=== PATIENT | male | born 1930 | race Caucasian/White ===

== ENCOUNTER 2018-06-11 11:17 | Observation (INO) ==
[2018-06-11] MEDS ORDERED: Pantoprazole Inj 40 MG Vial IV.PUSH ONE (11:58)
--- NOTE | 2018-06-11 12:00 | ED ---
HPI General Chief complaint: Recheck/Abnormal Lab/Rx Stated complaint: Sent by Primary for transfusion Time Seen by Provider: 06/11/18 11:58 Source: patient Mode of arrival: ambulatory Limitations: no limitations History of Present Illness HPI Narrative: 87-year-old male patient with history of anemia, previous GI bleed, not fully investigated by GI, presents to the ER today because he was told by his physician from a routine blood test that his hemoglobin is 7. He states he has been a little bit more tired than usual, having some dyspnea on exertion. He denies any current chest pains, vomiting, abdominal pains, or any other issues. He has noticed dark stool but he states is always dark. Related Data Home Medications Medication Instructions Recorded Confirmed atorvastatin 10 mg PO DAILY 06/11/18 06/11/18 levothyroxine 25 mcg PO DAILY 06/11/18 06/11/18 lisinopril-hydrochlorothiazide 1 tab PO DAILY 06/11/18 06/11/18 Allergies Allergy/AdvReac Type Severity Reaction Status Date / Time No Known Allergies Allergy Verified 06/11/18 12:50 Review of Systems ROS: all other systems reviewed are negative PMFSH History History Provided By: Patient Medical History Medical History Depression (Acute) History of high cholesterol (Acute) Hypertension (Acute) Hypothyroid (Acute) Surgical History Surgical History Hx of hernia repair (Acute) Social History Social History Substance History: No History of Abuse Second Hand Smoke Exposure: No Smoking Status: Never smoker How Often Do You Have a Drink Containing Alcohol: Never Recent Travel in [facility] within the Last 8 Weeks: No Recent Out of Country Travel within the Last 8 Weeks: No Exam Narrative Exam Narrative: GENERAL: Well-developed pleasant elderly white male patient currently in mild distress. Awake and oriented 3. SKIN: Focused skin assessment warm/dry. HEAD: Atraumatic. Normocephalic. EYES: Pupils equal and round. No scleral icterus. No injection or drainage. ENT: No nasal bleeding or discharge. Mucous membranes pink and moist. NECK: Trachea midline. No JVD. Supple. CARDIOVASCULAR: Regular rate and rhythm. No murmur appreciated. RESPIRATORY: No accessory muscle use. Clear to auscultation. Breath sounds equal bilaterally. GASTROINTESTINAL: Abdomen soft, non-tender, nondistended. Hepatic and splenic margins not palpable. RECTAL EXAM: No masses or tenderness, stool is brown. Hemoccult positive. MUSCULOSKELETAL: No obvious deformities. No clubbing. No cyanosis. No edema. NEUROLOGICAL: Awake and alert. No obvious cranial nerve deficits. Motor grossly within normal limits. Normal speech. PSYCHIATRIC: Appropriate mood and affect; insight and judgment normal. Procedures Hemaprompt Stool Procedural Steps Taken: specimen placed in appropriate test area, developer placed on specimen and control areas and controls appropriately positive and negative Hemaprompt Stool Result: positive Course Initial Documented Vital Signs Temperature 98.6 F 06/11/18 11:22 Pulse Rate 93 H 06/11/18 11:22 Respiratory Rate 16 06/11/18 11:22 Blood Pressure 120/53 L 06/11/18 11:22 Pulse Oximetry 100 06/11/18 11:22 Last Documented Vital Signs Temperature 98.6 F 06/11/18 11:22 Pulse Rate 93 H 06/11/18 11:22 Respiratory Rate 16 06/11/18 11:22 Blood Pressure 120/53 L 06/11/18 11:22 Pulse Oximetry 100 06/11/18 11:22 Medical Decision Making MDM Narrative Medical decision making narrative: Patient has Hemoccult positive stools. His hemoglobin is 7.4. Protonix and 2 units of blood were given in the ER. At this point, my plan would be to admit him for further evaluation of his GI bleed and for transfusion. Case has been discussed with Dr. Morrissey's PA for admission. Medical Screen Exam Complete: Yes Emergency Medical Condition: Yes Differential Diagnosis Differential Diagnosis: GI bleed/anemia Lab Data Lab results reviewed: Yes I reviewed the patient's lab results. Result diagrams: 06/11/18 12:10 06/11/18 12:10 Lab Results 06/11/18 06/11/18 06/11/18 Range/Units 12:10 12:10 12:10 CBC w Diff Auto diff final WBC 7.3 (4.0-11.0) th/mm3 RBC 2.72 L (4.50-5.90) mil/mm3 Hgb 7.4 L (13.0-17.0) gm/dL Hct 23.1 L (39.0-51.0) % MCV 85.0 (80.0-100.0) fL MCH 27.4 (27.0-34.0) pg MCHC 32.2 (32.0-36.0) % RDW 19.8 H (11.6-17.2) % Plt Count 367 (150-450) th/mm3 MPV 7.9 (7.0-11.0) fL Neut % (Auto) 73.9 H (16.0-70.0) % Lymph % (Auto) 11.8 (9.0-44.0) % [place] % (Auto) 8.7 H (0.0-8.0) % Eos % (Auto) 5.2 H (0.0-4.0) % Baso % (Auto) 0.4 (0.0-2.0) % Neut # (Auto) 5.4 (1.8-7.7) th/mm3 Lymph # (Auto) 0.9 L (1.0-4.8) th/mm3 [place] # (Auto) 0.6 (0.0-0.9) th/mm3 Eos # (Auto) 0.4 (0.0-0.4) th/mm3 Baso # (Auto) 0.0 (0.0-0.2) th/mm3 WBC Differential . Differential Comment . PT 10.6 (9.8-11.6) sec INR 1.0 Ratio APTT 24.8 (24.3-30.1) sec Sodium 137 (136-145) meq/L Potassium 4.9 (3.5-5.1) meq/L Chloride 107 (98-107) meq/L Carbon Dioxide 22.6 (21.0-32.0) meq/L Anion Gap 7 (5-15) meq/L BUN 35 H (7-18) mg/dL Creatinine 1.80 H (0.60-1.30) mg/dL Estimated GFR 36 L (>89) mL/min Random Glucose 122 H (74-106) mg/dL Calcium 8.4 L (8.5-10.1) mg/dL Discharge Plan Discharge Disposition Patient Disposition: 30 Still Patient Discharge Condition Condition: Stable Discharge Details Anticipated Discharge Date: 06/11/18 Diagnosis: GI bleed, Anemia Physicians Team ED Provider: Steven Barcenas Primary Care Provider: UNKNOWN, Rxs /Orders / Referrals /Forms Prescriptions: No Action atorvastatin 10 mg Tablet 10 mg PO DAILY RF: 0 lisinopril-hydrochlorothiazide 20-12.5 mg Tablet 1 tab PO DAILY RF: 0 levothyroxine 25 mcg Tablet 25 mcg PO DAILY RF: 0 Status ED Status: With Doctor
[2018-06-11 12:21] LABS: Baso % (Auto) 0.4 % (0.0-2.0); Eos # (Auto) 0.4 th/mm3 (0.0-0.4); Eos % (Auto) 5.2 % (0.0-4.0); Hematocrit 23.1 % (39.0-51.0); Hemoglobin 7.4 gm/dL (13.0-17.0); Lymph # (Auto) 0.9 th/mm3 (1.0-4.8); Lymph % (Auto) 11.8 % (9.0-44.0); Mean Corpuscular HGB Conc 32.2 % (32.0-36.0); Mean Corpuscular Hemoglobin 27.4 pg (27.0-34.0); Mean Platelet Volume 7.9 fL (7.0-11.0); Mono # (Auto) 0.6 th/mm3 (0.0-0.9); Mono % (Auto) 8.7 % (0.0-8.0); Neut # (Auto) 5.4 th/mm3 (1.8-7.7); Neut % (Auto) 73.9 % (16.0-70.0); Platelet Count 367 th/mm3 (150-450); Red Blood Count 2.72 mil/mm3 (4.50-5.90); Red Cell Distribution Width 19.8 % (11.6-17.2); White Blood Count 7.3 th/mm3 (4.0-11.0)
[2018-06-11 12:31] LABS: Potassium 4.9 meq/L (3.5-5.1)
[2018-06-11 12:33] LABS: Calcium 8.4 mg/dL (8.5-10.1); Carbon Dioxide 22.6 meq/L (21.0-32.0)
[2018-06-11 12:48] LABS: Activated Partial Thrombo Time 24.8 sec (24.3-30.1); Prothrombin Time 10.6 sec (9.8-11.6)
[2018-06-11] MEDS ORDERED: Sodium Chlor 0.9% Inj 250 ML IV.SIG SCH (13:00)
[2018-06-11] MEDS ORDERED: Acetaminophen 325 MG Tablet PO PRN (13:07)
[2018-06-11] MEDS ORDERED: Bisacodyl 10 MG Supp RECTAL PRN (13:07)
[2018-06-11] MEDS: Sod Chloride 0.9% Inj 1,000 ML IV.CONT SCH (14:23)
--- NOTE | 2018-06-11 14:32 | P.HP ---
History of Present Illness Primary Care Physician: UNKNOWN Chief Complaint: Anemia History of Present Illness: This is an 87-year-old male patient with a known medical history of hypertension , hyperlipidemia and hypothyroidism who presented to the ED from his PCP office with a hemoglobin of 7.0. Patient states that his primary care office called him this afternoon stating that his hemoglobin is 7 and that he needed to be admitted to the hospital for transfusion. Patient does admit to recent shortness of breath, fatigue as well as black and bloody stools. He states that he has been having dark stools for the past week. He does follow with hat checker, Dr. Palomo, he does have a history of iron deficiency anemia as well as multiple colonoscopies in the past. I guess 2 months ago was his last iron transfusion, he does take iron supplements at home. His PCP is Dr. Sheppard, who follows closely with him as well. He also does admit to a cough and upper respiratory infection for which she has been taking ibuprofen several times a day for the past week for generalized malaise. He denies any recent fevers, chills, headache, chest pain, abdominal pain, nausea, vomiting, diarrhea or dysuria. He is compliant with his medications at home. - Diagnosis (1) GI bleed (2) Anemia Review of Systems All other systems reviewed negative except as stated in HPI PMFSH - History History Provided By: Patient - Medical History Medical History: Medical History (Last Reviewed 06/11/18 @ 14:32 by Vita De La Cruz) Depression History of high cholesterol Hypertension Hypothyroid - Surgical History Surgical History: Surgical History (Last Reviewed 06/11/18 @ 14:32 by Vita De La Cruz) Hx of hernia repair - Family History Family History: Family History (Last Updated 06/11/18 @ 15:13 by Vita De La Cruz) Other No significant family history - Tobacco History Second Hand Smoke Exposure: No Smoking Status: Never smoker - Alcohol History How Often Do You Have a Drink Containing Alcohol: Never - Substance Use History Substance History: No History of Abuse - Travel History Recent Travel in the [place] Within the Last 8 Weeks: No Recent Travel Out of the Country Within the Last 8 Weeks: No - Immunization History Tetanus Immunization: Unsure Hx Influenza Vaccine This Season: Unable to Assess Medications and Allergies Active Medications: Active Medications Acetaminophen (Tylenol) 650 mg PO Q4H PRN PRN Reason: Temp > 100.4 Al Hydroxide/Mg Hydroxide (Milk Of Magnesia Liq) 30 ml PO Q12H PRN PRN Reason: Mild Constipation Bisacodyl (Dulcolax Supp) 10 mg RECTAL DAILY PRN PRN Reason: SEVERE CONSITIPATION Sodium Chloride (Ns Inj) 250 mls @ 15 mls/hr IV.SIG ONCE RODNEY Stop: 06/12/18 05:39 Sodium Chloride (Ns Inj) 1,000 mls @ 100 mls/hr IV.CONT .Q10H RODNEY Last Admin: 06/11/18 14:23 Dose: 100 mls/hr Lactulose (Lactulose Liq) 30 ml PO DAILY PRN PRN Reason: SEVERE CONSITIPATION Ondansetron HCl (Zofran Inj) 4 mg IV.PUSH Q6H PRN PRN Reason: NAUSEA OR VOMITING Sennosides (Senokot) 17.2 mg PO Q12H PRN PRN Reason: Moderate Constipation Allergies Allergy/AdvReac Type Severity Reaction Status Date / Time No Known Allergies Allergy Verified 06/11/18 12:50 Home Medications Medication Instructions Recorded Confirmed Type atorvastatin 10 mg PO DAILY 06/11/18 06/11/18 History levothyroxine 25 mcg PO DAILY 06/11/18 06/11/18 History lisinopril-hydrochlorothiazide 1 tab PO DAILY 06/11/18 06/11/18 History Exam Vital signs: Vital Signs 06/11/18 11:22 06/11/18 12:05 06/11/18 14:00 Temperature 98.6 F Pulse Rate 93 H 90 82 Respiratory Rate 16 16 18 Blood Pressure 120/53 L 109/40 L 102/50 L Pulse Oximetry 100 99 Intake & Output 06/10/18 06/11/18 06/11/18 18:59 06:59 18:59 Weight 62.4 kg Narrative: GENERAL: Well-developed, well-nourished patient in [facility]. SKIN: Warm and dry. No rash. Pale HEAD: Normocephalic. Atraumatic. EYES: Pupils equal and round. No scleral icterus. No injection or drainage. ENT: No nasal bleeding or discharge. Mucous membranes pink and moist. NECK: Supple. Trachea midline. CARDIOVASCULAR: Regular rate and rhythm. S1, S2 noted. No murmur appreciated. RESPIRATORY: No accessory muscle use. Clear to auscultation. Breath sounds equal bilaterally. GASTROINTESTINAL: Abdomen soft, non-tender, nondistended. Normoactive bowel sounds x4. MUSCULOSKELETAL: No obvious deformities. Extremities without clubbing, cyanosis , or edema. NEUROLOGICAL: Awake and alert. No obvious cranial nerve deficits. Motor grossly within normal limits. 5/5 muscle strength in bilateral upper and lower extremities. Normal speech. PSYCHIATRIC: Appropriate mood and affect; insight and judgment normal. Results - Labs CBC & Chem 7: 06/11/18 12:10 06/11/18 12:10 Labs: Laboratory Results - last 24 hr 06/11/18 06/11/18 06/11/18 12:10 12:10 12:10 CBC w Diff Auto diff final WBC 7.3 RBC 2.72 L Hgb 7.4 L Hct 23.1 L MCV 85.0 MCH 27.4 MCHC 32.2 RDW 19.8 H Plt Count 367 MPV 7.9 Neut % (Auto) 73.9 H Lymph % (Auto) 11.8 [place] % (Auto) 8.7 H Eos % (Auto) 5.2 H Baso % (Auto) 0.4 Neut # (Auto) 5.4 Lymph # (Auto) 0.9 L [place] # (Auto) 0.6 Eos # (Auto) 0.4 Baso # (Auto) 0.0 WBC Differential . Differential Comment . PT INR APTT Sodium 137 Potassium 4.9 Chloride 107 Carbon Dioxide 22.6 Anion Gap 7 BUN 35 H Creatinine 1.80 H Estimated GFR 36 L Random Glucose 122 H Calcium 8.4 L Blood Type A Positive 06/11/18 12:10 CBC w Diff WBC RBC Hgb Hct MCV MCH MCHC RDW Plt Count MPV Neut % (Auto) Lymph % (Auto) [place] % (Auto) Eos % (Auto) Baso % (Auto) Neut # (Auto) Lymph # (Auto) [place] # (Auto) Eos # (Auto) Baso # (Auto) WBC Differential Differential Comment PT 10.6 INR 1.0 APTT 24.8 Sodium Potassium Chloride Carbon Dioxide Anion Gap BUN Creatinine Estimated GFR Random Glucose Calcium Blood Type Caprini VTE Risk Assessment Caprini VTE Risk Assessment: Moderate/High Risk (score >= 2) Caprini Risk Assessment Model: Point Value = 1 Point Value = 2 Point Value = 3 Point Value = 5 Age 41-60 Minor surgery BMI > 25 kg/m2 Swollen legs Varicose veins or History of unexplained or recurrent spontaneous Oral contraceptives or hormone replacement Sepsis (< 1 month) Serious lung disease, including pneumonia (< 1 month) Abnormal pulmonary function Acute myocardial infarction Congestive heart failure (< 1 month) History of inflammatory bowel disease Medical patient at bed rest Age 61-74 Arthroscopic surgery Major open surgery (> 45 min) Laparoscopic surgery (> 45 min) Malignancy Confined to bed (> 72 hours) Immobilizing plaster cast Central venous access Age >= 75 History of VTE Family history of VTE Factor V Leiden Prothrombin [id number] Lupus anticoagulant Anticardiolipin antibodies Elevated serum homocysteine Heparin-induced thrombocytopenia Other congenital or acquired thrombophilia Stroke (< 1 month) Elective arthroplasty Hip, pelvis, or leg fracture Acute spinal cord injury (< 1 month) Prophylaxis Regimen: Total Risk Factor Score Risk Level Prophylaxis Regimen 0-1 Low Early ambulation 2 Moderate Order ONE of the following: *Sequential Compression Device (SCD) *Heparin 5000 units SQ BID 3-4 Higher Order ONE of the following medications: *Heparin 5000 units SQ TID *Enoxaparin/Lovenox 40 mg SQ daily (WT < 150 kg, CrCl > 30 mL/min) *Enoxaparin/Lovenox 30 mg SQ daily (WT < 150 kg, CrCl > 10-29 mL/min) *Enoxaparin/Lovenox 30 mg SQ BID (WT < 150 kg, CrCl > 30 mL/min) AND/OR *Sequential Compression Device (SCD) 5 or more Highest Order ONE of the following medications: *Heparin 5000 units SQ TID (Preferred with Epidurals) *Enoxaparin/Lovenox 40 mg SQ daily (WT < 150 kg, CrCl > 30 mL/min) *Enoxaparin/Lovenox 30 mg SQ daily (WT < 150 kg, CrCl > 10-29 mL/min) *Enoxaparin/Lovenox 30 mg SQ BID (WT < 150 kg, CrCl > 30 mL/min) AND *Sequential Compression Device (SCD) Assessment and Plan - Assessment (1) GI bleed Code(s): K92.2 - Gastrointestinal hemorrhage, unspecified Status: Acute (2) Anemia Code(s): D64.9 - Anemia, unspecified Status: Acute - Plan This is an 87-year-old male with: GI bleed Anemia suspect secondary to history of iron deficiency anemia as well as blood loss History of iron deficiency anemia, receives iron transfusions -Patient does admit to overall fatigue, shortness of breath and black and bloody stools for the past week. Does have a history of iron deficiency anemia , follows with hat checker, Dr. Hughes. -Hemoglobin 7.4/hematocrit 23.1 on presentation. ED physician ordered 2 units PRBC to be transfused today. -Hemoccult positive. Will continue to monitor for any active bleeding. Trend H &H. Monitor vital signs. -Gastroenterology consulted, appreciate input and recommendations. Will transfuse ordered PRBC. -Per GI standpoint, patient is stable to go home and follow up outpatient with his GI and hat checker. -Will continue to monitor. Supportive care. Acute on chronic? kidney disease -Patient denies any history of kidney disease, he presents with creatinine 1.8, GFR 36. -After review of records there is no prior creatinine level. Will recheck in a.m. -Patient denies any abnormality with urination. He has some ADOLPH inhibitor at home. Hypertension, chronic: Hold ADOLPH inhibitor for now. Continue to monitor BP trends. Hyperlipidemia, chronic: Will continue home medications. DVT prophylaxis: SCDs. Hold chemical prophylaxis secondary to anemia possible bleed. Discharge Planning: Await blood transfusion and improvement in creatinine.
--- NOTE | 2018-06-11 17:04 | MB ---
cc: Myron Alvarado MD, Jose R MD Wang,Baljit VARGAS DATE: 06/11/2018 A patient of Baljit Sheppard MD. INDICATIONS FOR CONSULTATION: Symptomatic anemia. HISTORY OF PRESENT ILLNESS: Mr. Van is an 87-year-old gentleman with a previous history of anemia requiring blood transfusions as well as iron infusions. He is under the care of Dr. Calin Hughes, oil derrick operator, and states he had an iron infusion done a few weeks ago. Apparently, he was sent to the hospital because of a drop in his hemoglobin. He reports previous EGD and colonoscopy roughly 2-1/2 to 3 years ago, at which time, he states his colonoscopy was not able to be completed due to a tortuous colon. He is unclear if there was any further workup undertaken at that time. PAST MEDICAL HISTORY: Hypertension, hyperlipidemia, hypothyroidism, chronic anemia, depression. PAST SURGICAL HISTORY: Hernia repair in the past, previous EGD and colonoscopy reported by the patient. SOCIAL HISTORY: No tobacco, no alcohol reported. REVIEW OF SYSTEMS: Currently, the patient has no symptoms of bleeding, abdominal pain or diarrhea. CURRENT MEDICATIONS: Include: 1. Lactulose. 2. Tylenol. PHYSICAL EXAMINATION: GENERAL: Reveals a well-nourished man in no apparent distress. VITAL SIGNS: Stable. HEAD AND NECK: Pale. Icteric. LUNGS: Bilateral air entry with rales. ABDOMEN: Soft. Midline hernia present. CENTRAL NERVOUS SYSTEM: Nonfocal. RECTAL: Deferred at this time. LABORATORY DATA: Reveal hemoglobin of 7.4 with an MCV of 85. INR is 1.0. Creatinine 1.80. IMPRESSION: Anemia, appears to be chronic. RECOMMENDATIONS: The patient is to be transfused 2 units of blood today. He is heme positive from below. He will need further workup. He can be discharged after blood transfusion over the weekend to follow up with me in the GI clinic next week for an EGD and colonoscopy. This has been discussed with the patient as well as the primary team. Dr. Wu will follow over the weekend. Thank you for this referral. MD ITZEL Silverman/erlinda , 04:24 PM , 04:31 PM
[2018-06-12] MEDS: Sod Chloride 0.9% Inj 1,000 ML IV.CONT SCH (02:05)
[2018-06-12 02:11] LABS: Hematocrit 25.8 % (39.0-51.0); Hemoglobin 8.5 gm/dL (13.0-17.0)
--- NOTE | 2018-06-12 07:51 | P.PNIM ---
Subjective Interval history: Follow-up anemia. Patient seen and examined, lying in bed comfortably no apparent distress. Received 2 units PRBC overnight. Hemoglobin improved to 8.5. Doing well with no complaints. Awaiting lab work this morning. Vital signs stable. Afebrile. Physical Exam Vital signs: Vital Signs 06/11/18 11:22 06/11/18 12:05 06/11/18 14:00 Temperature 98.6 F Pulse Rate 93 H 90 82 Respiratory Rate 16 16 18 Blood Pressure 120/53 L 109/40 L 102/50 L Pulse Oximetry 100 99 06/11/18 15:14 06/11/18 16:00 06/11/18 17:37 Temperature 97.3 F L 97.2 F L 99.3 F Pulse Rate 80 78 81 Respiratory Rate 20 17 Blood Pressure 124/55 L 109/57 L 140/62 Pulse Oximetry 21 L 97 99 06/11/18 17:52 06/11/18 20:00 06/11/18 22:23 Temperature 98.8 F 98.5 F 98.8 F Pulse Rate 80 78 86 Respiratory Rate 17 20 18 Blood Pressure 126/55 L 117/60 123/57 L Pulse Oximetry 99 97 96 06/11/18 22:39 06/11/18 22:45 06/12/18 00:00 Temperature 98.7 F 98.2 F 98.2 F Pulse Rate 91 H 85 85 Respiratory Rate 18 18 18 Blood Pressure 103/60 109/61 109/61 Pulse Oximetry 99 98 98 06/12/18 03:00 06/12/18 04:00 Temperature 98.3 F 98.3 F Pulse Rate 83 83 Respiratory Rate 18 18 Blood Pressure 161/70 H 161/70 H Pulse Oximetry 99 99 Intake & Output 06/11/18 06/12/18 06/12/18 18:59 06:59 18:59 Intake Total 0 / 0 2480 / 2480 30 / 30 Balance 0 / 0 2480 / 2480 30 / 30 Weight 62.4 kg 62.5 kg Intake: IV 1999 30 / 30 NS Inj 1,000 ML @ 100 mls/hr IV 1999 .CONT .Q10H RODNEY Rx#:[id number] NS Inj 250 ML @ 15 mls/hr IV. 30 / 30 SIG ONCE RODNEY Rx#:[id number] Oral 480 / 480 Intake (Blood Product) Amt 0 / 0 0 / 0 Rbc As-3 Leukoreduced Unit 0 / 0 0 / 0 [id number] Rbc As-3 Leukoreduced Unit 0 / 0 [id number] Other: # Voids 2 Date of Last Bowel Movement 06/11/18 06/11/18 # Bowel Movements 1 Weight On Admission 62.4 kg Narrative: GENERAL: Well-developed, well-nourished patient in [facility]. SKIN: Warm and dry. No rash. HEAD: Normocephalic. Atraumatic. EYES: Pupils equal and round. No scleral icterus. No injection or drainage. ENT: No nasal bleeding or discharge. Mucous membranes pink and moist. NECK: Supple. Trachea midline. CARDIOVASCULAR: Regular rate and rhythm. S1, S2 noted. No murmur appreciated. RESPIRATORY: No accessory muscle use. Clear to auscultation. Breath sounds equal bilaterally. GASTROINTESTINAL: Abdomen soft, non-tender, nondistended. Normoactive bowel sounds x4. MUSCULOSKELETAL: No obvious deformities. Extremities without clubbing, cyanosis , or edema. NEUROLOGICAL: Awake and alert. No obvious cranial nerve deficits. Motor grossly within normal limits. 5/5 muscle strength in bilateral upper and lower extremities. Normal speech. PSYCHIATRIC: Appropriate mood and affect; insight and judgment normal. Results - Labs CBC & Chem 7: 06/12/18 02:00 06/11/18 12:10 Laboratory Results - last 24 hr 06/11/18 06/11/18 06/11/18 12:10 12:10 12:10 CBC w Diff Auto diff final WBC 7.3 RBC 2.72 L Hgb 7.4 L Hct 23.1 L MCV 85.0 MCH 27.4 MCHC 32.2 RDW 19.8 H Plt Count 367 MPV 7.9 Neut % (Auto) 73.9 H Lymph % (Auto) 11.8 [place] % (Auto) 8.7 H Eos % (Auto) 5.2 H Baso % (Auto) 0.4 Neut # (Auto) 5.4 Lymph # (Auto) 0.9 L [place] # (Auto) 0.6 Eos # (Auto) 0.4 Baso # (Auto) 0.0 WBC Differential . Differential Comment . PT INR APTT Sodium 137 Potassium 4.9 Chloride 107 Carbon Dioxide 22.6 Anion Gap 7 BUN 35 H Creatinine 1.80 H Estimated GFR 36 L Random Glucose 122 H Calcium 8.4 L Blood Type A Positive Antibody Screen Negative MTS Gel Crossmatch 06/11/18 06/11/18 06/12/18 12:10 12:48 02:00 CBC w Diff WBC RBC Hgb 8.5 L Hct 25.8 L MCV MCH MCHC RDW Plt Count MPV Neut % (Auto) Lymph % (Auto) [place] % (Auto) Eos % (Auto) Baso % (Auto) Neut # (Auto) Lymph # (Auto) [place] # (Auto) Eos # (Auto) Baso # (Auto) WBC Differential Differential Comment PT 10.6 INR 1.0 APTT 24.8 Sodium Potassium Chloride Carbon Dioxide Anion Gap BUN Creatinine Estimated GFR Random Glucose Calcium Blood Type Antibody Screen MTS Gel Crossmatch See Detail Assessment and Plan - Assessment (1) GI bleed Code(s): K92.2 - Gastrointestinal hemorrhage, unspecified Status: Acute (2) Anemia Code(s): D64.9 - Anemia, unspecified Status: Acute - Plan This is an 87-year-old male with: GI bleed Anemia suspect secondary to history of iron deficiency anemia as well as blood loss History of iron deficiency anemia, receives iron transfusions -Patient does admit to overall fatigue, shortness of breath and black and bloody stools for the past week. Does have a history of iron deficiency anemia , follows with editorial specialist, Dr. Hughes. -Hemoglobin 7.4/hematocrit 23.1 on presentation. ED physician ordered 2 units PRBC to be transfused today. Improved to 8.5. -Hemoccult positive. Will continue to monitor for any active bleeding. No continued bleeding. -Gastroenterology consulted, appreciate input and recommendations. Will discharge home to follow-up with patient's GI specialist. Ultimately needs a colonoscopy. -Per GI standpoint, patient is stable to go home and follow up outpatient with his GI and editorial specialist. -Will continue to monitor. Supportive care. Acute on chronic? kidney disease -Patient denies any history of kidney disease, he presents with creatinine 1.8, GFR 36. Awaiting lab work today. -After review of records there is no prior creatinine level. -Patient denies any abnormality with urination. He is on an ADOLPH inhibitor at home. Hypertension, chronic: Hold ADOLPH inhibitor for now. Continue to monitor BP trends. Hyperlipidemia, chronic: Will continue home medications. DVT prophylaxis: SCDs. Hold chemical prophylaxis secondary to anemia possible bleed. Discharge Planning: Awaiting BMP this morning. Will discharge home with creatinine improved.
[2018-06-12 08:48] LABS: Baso % (Auto) 0.6 % (0.0-2.0); Eos # (Auto) 0.2 th/mm3 (0.0-0.4); Eos % (Auto) 3.6 % (0.0-4.0); Hematocrit 25.5 % (39.0-51.0); Hemoglobin 8.7 gm/dL (13.0-17.0); Lymph # (Auto) 0.7 th/mm3 (1.0-4.8); Lymph % (Auto) 10.6 % (9.0-44.0); Mean Corpuscular HGB Conc 34.3 % (32.0-36.0); Mean Corpuscular Volume 84.3 fL (80.0-100.0); Mean Platelet Volume 8.3 fL (7.0-11.0); Mono # (Auto) 0.5 th/mm3 (0.0-0.9); Mono % (Auto) 7.5 % (0.0-8.0); Neut % (Auto) 77.7 % (16.0-70.0); Platelet Count 263 th/mm3 (150-450); Potassium 5.3 meq/L (3.5-5.1); Red Blood Count 3.02 mil/mm3 (4.50-5.90); Red Cell Distribution Width 18.2 % (11.6-17.2); White Blood Count 6.4 th/mm3 (4.0-11.0)
[2018-06-12 08:52] LABS: Calcium 8.1 mg/dL (8.5-10.1); Carbon Dioxide 21.9 meq/L (21.0-32.0)
[2018-06-12 09:03] VITALS: BP 119/56; PULSE 76; RESP 16; TEMP 98.2; O2SAT 97
[2018-06-12] MEDS ORDERED: Sodium Polystyrene Sulfonate/Sorbitol Liq 15 GM/60 ML UDC PO ONE (10:30)
== END 2018-06-12 10:50 | disposition home or self-care (01) ==
LOC: PHED 11:17 → PHEDA 11:17 → PHED 13:10 → PH3 14:15
PROVIDERS: ADMIT Internal Medicine; ATTEND Internal Medicine
DX: F32.9 Major depressive disorder, single episode, unspecified; E78.5 Hyperlipidemia, unspecified; N28.9 Disorder of kidney and ureter, unspecified; E03.9 Hypothyroidism, unspecified; I10 Essential (primary) hypertension; J06.9 Acute upper respiratory infection, unspecified; K92.2 Gastrointestinal hemorrhage, unspecified; D64.9 Anemia, unspecified; E78.00 Pure hypercholesterolemia, unspecified

== ENCOUNTER 2018-07-06 11:40 | Inpatient (IN) ==
[2018-07-06] MEDS ORDERED: Sod Chloride 0.9% Inj 1,000 ML IV.SIG ONE (12:12)
[2018-07-06] MEDS ORDERED: Pantoprazole Inj 40 MG Vial IV.PUSH ONE (12:12)
--- NOTE | 2018-07-06 12:18 | ED ---
HPI General Chief complaint: Weakness Stated complaint: weak, feels like he needs blood Time Seen by Provider: 07/06/18 11:52 History of Present Illness HPI narrative: 87-year-old male patient with a known medical history of GI bleeding,hypertension, hyperlipidemia here for low hemoglobin. pt says that his grandson called him saying that his hemoglobin is " five or something". He says he gets Blood work weekly, He states that his doctor have been trying to get a hold of him but " he lives by himself". His PCP is dr. Sheppard and he is scheduled for colonoscopy on jul. He states that last colonoscopy was 4years ago. He was last admitted on 06/15 for simliar reason. He reports generalized weakness but no chest pain or SOB. Related Data Home Medications Medication Instructions Recorded Confirmed atorvastatin 10 mg PO EVERY OTHER DAY 06/11/18 07/07/18 levothyroxine 25 mcg PO DAILY 06/11/18 07/07/18 lisinopril-hydrochlorothiazide 1 tab PO DAILY 06/11/18 07/07/18 ferrous sulfate [iron] 325 mg PO DAILY 07/06/18 07/07/18 Previous Rx's Medication Instructions Recorded amoxicillin 875 mg PO Q12HR 8 Days tab 07/08/18 metronidazole 500 mg PO BID 8 Days #16 tab 07/08/18 pantoprazole 40 mg PO BID #24 tab 07/08/18 Allergies Allergy/AdvReac Type Severity Reaction Status Date / Time No Known Allergies Allergy Verified 07/06/18 12:06 [facility], [facility] Family History Family History Son Diabetes Hypertension Social History Social History Substance History: No History of Abuse Second Hand Smoke Exposure: No Smoking Status: Never smoker How Often Do You Have a Drink Containing Alcohol: Never Immunization History Tetanus Immunization: >5 Years Procedures Hemaprompt Stool Procedural Steps Taken: specimen placed in appropriate test area Hemaprompt Stool Result: positive Course Initial Documented Vital Signs Temperature 98.6 F 07/06/18 11:42 Pulse Rate 108 H 07/06/18 11:42 Respiratory Rate 16 07/06/18 11:42 Blood Pressure 115/56 L 07/06/18 11:42 Pulse Oximetry 100 07/06/18 11:42 Last Documented Vital Signs Temperature 98.7 F 07/11/18 08:00 Pulse Rate 90 07/11/18 09:00 Respiratory Rate 18 07/11/18 09:00 Blood Pressure 131/55 L 07/11/18 09:00 Pulse Oximetry 98 07/11/18 08:00 Medical Decision Making MDM Narrative Medical decision making narrative: 87 male here for generalized weakness, vitals remarkable for hypotension and tachycardia, exam reveals pale skin, positive Hemoccult. No EKG changes, hemoglobin 5.6 needs to be admitted for blood transfusion. Denies any chest pain or shortness of breath, he is not in any acute distress. Medical Screen Exam Complete: Yes Emergency Medical Condition: Yes Lab Data Result diagrams: 07/10/18 17:02 07/10/18 05:45 Lab Results 07/06/18 07/06/18 07/06/18 Range/Units 12:00 12:00 12:00 CBC w Diff Slide review pending WBC 10.0 (4.0-11.0) th/mm3 RBC 1.97 L (4.50-5.90) mil/mm3 Hgb 5.6 L* (13.0-17.0) gm/dL Hct 16.8 L* (39.0-51.0) % MCV 85.5 (80.0-100.0) fL MCH 28.6 (27.0-34.0) pg MCHC 33.4 (32.0-36.0) % RDW 17.8 H (11.6-17.2) % Plt Count 449 D (150-450) th/mm3 MPV 8.2 (7.0-11.0) fL Neut % (Auto) 77.8 H (16.0-70.0) % Lymph % (Auto) 12.0 (9.0-44.0) % [place] % (Auto) 8.3 H (0.0-8.0) % Eos % (Auto) 1.3 (0.0-4.0) % Baso % (Auto) 0.6 (0.0-2.0) % Neut # (Auto) 7.8 H (1.8-7.7) th/mm3 Lymph # (Auto) 1.2 (1.0-4.8) th/mm3 [place] # (Auto) 0.8 (0.0-0.9) th/mm3 Eos # (Auto) 0.1 (0.0-0.4) th/mm3 Baso # (Auto) 0.1 (0.0-0.2) th/mm3 WBC Differential . Diff Scan Auto diff confirmed Differential Comment . Toxic Granulation (None) Platelet Estimate Normal (Normal) Platelet Morphology Normal (Normal) Dimorphic RBCs (None) Ovalocytes (None) PT 10.8 (9.8-11.6) sec INR 1.1 Ratio APTT 24.5 (24.3-30.1) sec Sodium 137 (136-145) meq/L Potassium 4.7 (3.5-5.1) meq/L Chloride 109 H (98-107) meq/L Carbon Dioxide 18.8 L (21.0-32.0) meq/L Anion Gap 9 (5-15) meq/L BUN 42 H (7-18) mg/dL Creatinine 1.80 H (0.60-1.30) mg/dL Estimated GFR 36 L (>89) mL/min Random Glucose 102 (74-106) mg/dL Calcium 8.1 L (8.5-10.1) mg/dL Prot Corrected Calcium (8.5-10.1) mg/dL Magnesium (1.5-2.5) mg/dL Iron (65-175) mcg/dL TIBC (250-450) mcg/dL % Saturation (20-50) % Total Bilirubin 0.2 (0.2-1.0) mg/dL AST 22 (15-37) U/L ALT 20 (12-78) U/L Alkaline Phosphatase 90 (45-117) U/L Troponin I Less than 0.02 L (0.02-0.05) ng/mL Total Protein 7.7 (6.4-8.2) g/dL Albumin 2.6 L (3.4-5.0) g/dL Lipase 276 (73-393) U/L Urine Color (Yellw/Straw) Urine Clarity (Clear) Urine pH (5.0-8.5) Ur Specific [place] (1.002-1.035) Urine Protein (Neg-Trace) mg/dL Urine Glucose (UA) (Negative) mg/dL Urine Ketones (Negative) mg/dL Urine Occult Blood (Negative) Urine Nitrate (Negative) Urine Bilirubin (Negative) Urine Urobilinogen (Less than 2) mg/dL Ur Leukocyte Esterase (Negative) Urine WBC (0-5) /hpf Ur Squamous Epith Cells (0-5) /hpf Urine Bacteria (None) /hpf Urine Mucus (Occasional) /lpf Micro UA Comment Ur Microscopic Review Urine Culture Comments Blood Type Antibody Screen MTS Gel Crossmatch Bld Prod Order Comment 07/06/18 07/06/18 07/06/18 Range/Units 12:00 12:00 13:04 CBC w Diff WBC (4.0-11.0) th/mm3 RBC (4.50-5.90) mil/mm3 Hgb (13.0-17.0) gm/dL Hct (39.0-51.0) % MCV (80.0-100.0) fL MCH (27.0-34.0) pg MCHC (32.0-36.0) % RDW (11.6-17.2) % Plt Count (150-450) th/mm3 MPV (7.0-11.0) fL Neut % (Auto) (16.0-70.0) % Lymph % (Auto) (9.0-44.0) % [place] % (Auto) (0.0-8.0) % Eos % (Auto) (0.0-4.0) % Baso % (Auto) (0.0-2.0) % Neut # (Auto) (1.8-7.7) th/mm3 Lymph # (Auto) (1.0-4.8) th/mm3 [place] # (Auto) (0.0-0.9) th/mm3 Eos # (Auto) (0.0-0.4) th/mm3 Baso # (Auto) (0.0-0.2) th/mm3 WBC Differential Diff Scan Differential Comment Toxic Granulation (None) Platelet Estimate (Normal) Platelet Morphology (Normal) Dimorphic RBCs (None) Ovalocytes (None) PT (9.8-11.6) sec INR Ratio APTT (24.3-30.1) sec Sodium (136-145) meq/L Potassium (3.5-5.1) meq/L Chloride (98-107) meq/L Carbon Dioxide (21.0-32.0) meq/L Anion Gap (5-15) meq/L BUN (7-18) mg/dL Creatinine (0.60-1.30) mg/dL Estimated GFR (>89) mL/min Random Glucose (74-106) mg/dL Calcium (8.5-10.1) mg/dL Prot Corrected Calcium (8.5-10.1) mg/dL Magnesium (1.5-2.5) mg/dL Iron 26 L (65-175) mcg/dL TIBC 307 (250-450) mcg/dL % Saturation 8.5 L (20-50) % Total Bilirubin (0.2-1.0) mg/dL AST (15-37) U/L ALT (12-78) U/L Alkaline Phosphatase (45-117) U/L Troponin I (0.02-0.05) ng/mL Total Protein (6.4-8.2) g/dL Albumin (3.4-5.0) g/dL Lipase (73-393) U/L Urine Color (Yellw/Straw) Urine Clarity (Clear) Urine pH (5.0-8.5) Ur Specific [place] (1.002-1.035) Urine Protein (Neg-Trace) mg/dL Urine Glucose (UA) (Negative) mg/dL Urine Ketones (Negative) mg/dL Urine Occult Blood (Negative) Urine Nitrate (Negative) Urine Bilirubin (Negative) Urine Urobilinogen (Less than 2) mg/dL Ur Leukocyte Esterase (Negative) Urine WBC (0-5) /hpf Ur Squamous Epith Cells (0-5) /hpf Urine Bacteria (None) /hpf Urine Mucus (Occasional) /lpf Micro UA Comment Ur Microscopic Review Urine Culture Comments Blood Type A Positive Antibody Screen Negative MTS Gel Crossmatch See Detail Bld Prod Order Comment 07/06/18 07/06/18 07/07/18 Range/Units 15:40 22:23 05:40 CBC w Diff Auto diff final WBC 9.2 (4.0-11.0) th/mm3 RBC 2.98 L (4.50-5.90) mil/mm3 Hgb 8.8 L D 8.3 L (13.0-17.0) gm/dL Hct 27.4 L 25.6 L (39.0-51.0) % MCV 85.7 (80.0-100.0) fL MCH 28.0 (27.0-34.0) pg MCHC 32.6 (32.0-36.0) % RDW 15.6 (11.6-17.2) % Plt Count 332 (150-450) th/mm3 MPV 7.9 (7.0-11.0) fL Neut % (Auto) 84.2 H (16.0-70.0) % Lymph % (Auto) 8.0 L (9.0-44.0) % [place] % (Auto) 6.4 (0.0-8.0) % Eos % (Auto) 1.1 (0.0-4.0) % Baso % (Auto) 0.3 (0.0-2.0) % Neut # (Auto) 7.8 H (1.8-7.7) th/mm3 Lymph # (Auto) 0.7 L (1.0-4.8) th/mm3 [place] # (Auto) 0.6 (0.0-0.9) th/mm3 Eos # (Auto) 0.1 (0.0-0.4) th/mm3 Baso # (Auto) 0.0 (0.0-0.2) th/mm3 WBC Differential . Diff Scan Differential Comment . Toxic Granulation (None) Platelet Estimate (Normal) Platelet Morphology (Normal) Dimorphic RBCs (None) Ovalocytes (None) PT (9.8-11.6) sec INR Ratio APTT (24.3-30.1) sec Sodium (136-145) meq/L Potassium (3.5-5.1) meq/L Chloride (98-107) meq/L Carbon Dioxide (21.0-32.0) meq/L Anion Gap (5-15) meq/L BUN (7-18) mg/dL Creatinine (0.60-1.30) mg/dL Estimated GFR (>89) mL/min Random Glucose (74-106) mg/dL Calcium (8.5-10.1) mg/dL Prot Corrected Calcium (8.5-10.1) mg/dL Magnesium (1.5-2.5) mg/dL Iron (65-175) mcg/dL TIBC (250-450) mcg/dL % Saturation (20-50) % Total Bilirubin (0.2-1.0) mg/dL AST (15-37) U/L ALT (12-78) U/L Alkaline Phosphatase (45-117) U/L Troponin I (0.02-0.05) ng/mL Total Protein (6.4-8.2) g/dL Albumin (3.4-5.0) g/dL Lipase (73-393) U/L Urine Color Yellow (Yellw/Straw) Urine Clarity Clear (Clear) Urine pH 5.0 (5.0-8.5) Ur Specific [place] 1.020 (1.002-1.035) Urine Protein Negative (Neg-Trace) mg/dL Urine Glucose (UA) Negative (Negative) mg/dL Urine Ketones Negative (Negative) mg/dL Urine Occult Blood Negative (Negative) Urine Nitrate Negative (Negative) Urine Bilirubin Negative (Negative) Urine Urobilinogen 0.2 (Less than 2) mg/dL Ur Leukocyte Esterase Negative (Negative) Urine WBC 0-5 (0-5) /hpf Ur Squamous Epith Cells 0-5 (0-5) /hpf Urine Bacteria Rare H (None) /hpf Urine Mucus Rare H (Occasional) /lpf Micro UA Comment Culture not ind Ur Microscopic Review Microscopic reviewed Urine Culture Comments Culture not ind Blood Type Antibody Screen MTS Gel Crossmatch Bld Prod Order Comment 07/07/18 07/07/18 07/07/18 Range/Units 05:40 13:25 22:00 CBC w Diff WBC (4.0-11.0) th/mm3 RBC (4.50-5.90) mil/mm3 Hgb 8.3 L 9.1 L (13.0-17.0) gm/dL Hct 26.3 L 28.7 L (39.0-51.0) % MCV (80.0-100.0) fL MCH (27.0-34.0) pg MCHC (32.0-36.0) % RDW (11.6-17.2) % Plt Count (150-450) th/mm3 MPV (7.0-11.0) fL Neut % (Auto) (16.0-70.0) % Lymph % (Auto) (9.0-44.0) % [place] % (Auto) (0.0-8.0) % Eos % (Auto) (0.0-4.0) % Baso % (Auto) (0.0-2.0) % Neut # (Auto) (1.8-7.7) th/mm3 Lymph # (Auto) (1.0-4.8) th/mm3 [place] # (Auto) (0.0-0.9) th/mm3 Eos # (Auto) (0.0-0.4) th/mm3 Baso # (Auto) (0.0-0.2) th/mm3 WBC Differential Diff Scan Differential Comment Toxic Granulation (None) Platelet Estimate (Normal) Platelet Morphology (Normal) Dimorphic RBCs (None) Ovalocytes (None) PT (9.8-11.6) sec INR Ratio APTT (24.3-30.1) sec Sodium 139 (136-145) meq/L Potassium 4.8 (3.5-5.1) meq/L Chloride 112 H (98-107) meq/L Carbon Dioxide 17.4 L (21.0-32.0) meq/L Anion Gap 10 (5-15) meq/L BUN 36 H (7-18) mg/dL Creatinine 1.60 H (0.60-1.30) mg/dL Estimated GFR 41 L (>89) mL/min Random Glucose 118 H (74-106) mg/dL Calcium 7.5 L (8.5-10.1) mg/dL Prot Corrected Calcium (8.5-10.1) mg/dL Magnesium (1.5-2.5) mg/dL Iron (65-175) mcg/dL TIBC (250-450) mcg/dL % Saturation (20-50) % Total Bilirubin (0.2-1.0) mg/dL AST (15-37) U/L ALT (12-78) U/L Alkaline Phosphatase (45-117) U/L Troponin I (0.02-0.05) ng/mL Total Protein (6.4-8.2) g/dL Albumin (3.4-5.0) g/dL Lipase (73-393) U/L Urine Color (Yellw/Straw) Urine Clarity (Clear) Urine pH (5.0-8.5) Ur Specific [place] (1.002-1.035) Urine Protein (Neg-Trace) mg/dL Urine Glucose (UA) (Negative) mg/dL Urine Ketones (Negative) mg/dL Urine Occult Blood (Negative) Urine Nitrate (Negative) Urine Bilirubin (Negative) Urine Urobilinogen (Less than 2) mg/dL Ur Leukocyte Esterase (Negative) Urine WBC (0-5) /hpf Ur Squamous Epith Cells (0-5) /hpf Urine Bacteria (None) /hpf Urine Mucus (Occasional) /lpf Micro UA Comment Ur Microscopic Review Urine Culture Comments Blood Type Antibody Screen MTS Gel Crossmatch Bld Prod Order Comment 07/08/18 07/08/18 07/09/18 Range/Units 04:25 04:25 04:30 CBC w Diff Auto diff final Auto diff final WBC 8.0 9.8 (4.0-11.0) th/mm3 RBC 3.00 L 2.82 L (4.50-5.90) mil/mm3 Hgb 8.3 L 8.2 L (13.0-17.0) gm/dL Hct 26.5 L 24.1 L (39.0-51.0) % MCV 88.1 85.7 (80.0-100.0) fL MCH 27.7 29.2 (27.0-34.0) pg MCHC 31.4 L 34.1 (32.0-36.0) % RDW 16.5 17.0 (11.6-17.2) % Plt Count 347 312 (150-450) th/mm3 MPV 7.9 7.9 (7.0-11.0) fL Neut % (Auto) 84.3 H 90.2 H (16.0-70.0) % Lymph % (Auto) 8.1 L 4.6 L (9.0-44.0) % [place] % (Auto) 6.4 5.0 (0.0-8.0) % Eos % (Auto) 1.0 0.1 (0.0-4.0) % Baso % (Auto) 0.2 0.1 (0.0-2.0) % Neut # (Auto) 6.8 8.9 H (1.8-7.7) th/mm3 Lymph # (Auto) 0.6 L 0.4 L (1.0-4.8) th/mm3 [place] # (Auto) 0.5 0.5 (0.0-0.9) th/mm3 Eos # (Auto) 0.1 0.0 (0.0-0.4) th/mm3 Baso # (Auto) 0.0 0.0 (0.0-0.2) th/mm3 WBC Differential . . Diff Scan Differential Comment . . Toxic Granulation (None) Platelet Estimate (Normal) Platelet Morphology (Normal) Dimorphic RBCs (None) Ovalocytes (None) PT (9.8-11.6) sec INR Ratio APTT (24.3-30.1) sec Sodium 142 (136-145) meq/L Potassium 5.2 H (3.5-5.1) meq/L Chloride 114 H (98-107) meq/L Carbon Dioxide 18.6 L (21.0-32.0) meq/L Anion Gap 9 (5-15) meq/L BUN 34 H (7-18) mg/dL Creatinine 1.80 H (0.60-1.30) mg/dL Estimated GFR 36 L (>89) mL/min Random Glucose 126 H (74-106) mg/dL Calcium 7.4 L* (8.5-10.1) mg/dL Prot Corrected Calcium 7.3 L* (8.5-10.1) mg/dL Magnesium (1.5-2.5) mg/dL Iron (65-175) mcg/dL TIBC (250-450) mcg/dL % Saturation (20-50) % Total Bilirubin (0.2-1.0) mg/dL AST (15-37) U/L ALT (12-78) U/L Alkaline Phosphatase (45-117) U/L Troponin I (0.02-0.05) ng/mL Total Protein 7.4 (6.4-8.2) g/dL Albumin (3.4-5.0) g/dL Lipase (73-393) U/L Urine Color (Yellw/Straw) Urine Clarity (Clear) Urine pH (5.0-8.5) Ur Specific [place] (1.002-1.035) Urine Protein (Neg-Trace) mg/dL Urine Glucose (UA) (Negative) mg/dL Urine Ketones (Negative) mg/dL Urine Occult Blood (Negative) Urine Nitrate (Negative) Urine Bilirubin (Negative) Urine Urobilinogen (Less than 2) mg/dL Ur Leukocyte Esterase (Negative) Urine WBC (0-5) /hpf Ur Squamous Epith Cells (0-5) /hpf Urine Bacteria (None) /hpf Urine Mucus (Occasional) /lpf Micro UA Comment Ur Microscopic Review Urine Culture Comments Blood Type Antibody Screen MTS Gel Crossmatch Bld Prod Order Comment 07/09/18 07/09/18 07/09/18 Range/Units 04:30 04:30 15:43 CBC w Diff WBC (4.0-11.0) th/mm3 RBC (4.50-5.90) mil/mm3 Hgb (13.0-17.0) gm/dL Hct (39.0-51.0) % MCV (80.0-100.0) fL MCH (27.0-34.0) pg MCHC (32.0-36.0) % RDW (11.6-17.2) % Plt Count (150-450) th/mm3 MPV (7.0-11.0) fL Neut % (Auto) (16.0-70.0) % Lymph % (Auto) (9.0-44.0) % [place] % (Auto) (0.0-8.0) % Eos % (Auto) (0.0-4.0) % Baso % (Auto) (0.0-2.0) % Neut # (Auto) (1.8-7.7) th/mm3 Lymph # (Auto) (1.0-4.8) th/mm3 [place] # (Auto) (0.0-0.9) th/mm3 Eos # (Auto) (0.0-0.4) th/mm3 Baso # (Auto) (0.0-0.2) th/mm3 WBC Differential Diff Scan Differential Comment Toxic Granulation (None) Platelet Estimate (Normal) Platelet Morphology (Normal) Dimorphic RBCs (None) Ovalocytes (None) PT (9.8-11.6) sec INR Ratio APTT (24.3-30.1) sec Sodium 140 143 (136-145) meq/L Potassium 5.4 H 4.0 D (3.5-5.1) meq/L Chloride 113 H 114 H (98-107) meq/L Carbon Dioxide 15.1 L 18.8 L (21.0-32.0) meq/L Anion Gap 12 10 (5-15) meq/L BUN 40 H 33 H (7-18) mg/dL Creatinine 3.10 H 2.70 H (0.60-1.30) mg/dL Estimated GFR 19 L 22 L (>89) mL/min Random Glucose 131 H 86 (74-106) mg/dL Calcium 7.7 L 7.7 L (8.5-10.1) mg/dL Prot Corrected Calcium (8.5-10.1) mg/dL Magnesium 2.2 (1.5-2.5) mg/dL Iron (65-175) mcg/dL TIBC (250-450) mcg/dL % Saturation (20-50) % Total Bilirubin (0.2-1.0) mg/dL AST (15-37) U/L ALT (12-78) U/L Alkaline Phosphatase (45-117) U/L Troponin I (0.02-0.05) ng/mL Total Protein (6.4-8.2) g/dL Albumin (3.4-5.0) g/dL Lipase (73-393) U/L Urine Color (Yellw/Straw) Urine Clarity (Clear) Urine pH (5.0-8.5) Ur Specific [place] (1.002-1.035) Urine Protein (Neg-Trace) mg/dL Urine Glucose (UA) (Negative) mg/dL Urine Ketones (Negative) mg/dL Urine Occult Blood (Negative) Urine Nitrate (Negative) Urine Bilirubin (Negative) Urine Urobilinogen (Less than 2) mg/dL Ur Leukocyte Esterase (Negative) Urine WBC (0-5) /hpf Ur Squamous Epith Cells (0-5) /hpf Urine Bacteria (None) /hpf Urine Mucus (Occasional) /lpf Micro UA Comment Ur Microscopic Review Urine Culture Comments Blood Type Antibody Screen MTS Gel Crossmatch Bld Prod Order Comment 07/10/18 07/10/18 07/10/18 Range/Units 05:45 05:45 10:47 CBC w Diff Slide review pending WBC 7.1 (4.0-11.0) th/mm3 RBC 2.61 L (4.50-5.90) mil/mm3 Hgb 7.5 L (13.0-17.0) gm/dL Hct 22.7 L (39.0-51.0) % MCV 86.9 (80.0-100.0) fL MCH 28.8 (27.0-34.0) pg MCHC 33.2 (32.0-36.0) % RDW 16.4 (11.6-17.2) % Plt Count 259 (150-450) th/mm3 MPV 7.8 (7.0-11.0) fL Neut % (Auto) 85.8 H (16.0-70.0) % Lymph % (Auto) 7.2 L (9.0-44.0) % [place] % (Auto) 5.4 (0.0-8.0) % Eos % (Auto) 1.2 (0.0-4.0) % Baso % (Auto) 0.4 (0.0-2.0) % Neut # (Auto) 6.1 (1.8-7.7) th/mm3 Lymph # (Auto) 0.5 L (1.0-4.8) th/mm3 [place] # (Auto) 0.4 (0.0-0.9) th/mm3 Eos # (Auto) 0.1 (0.0-0.4) th/mm3 Baso # (Auto) 0.0 (0.0-0.2) th/mm3 WBC Differential . Diff Scan Auto diff confirmed Differential Comment . Toxic Granulation 2+ H (None) Platelet Estimate Normal (Normal) Platelet Morphology Normal (Normal) Dimorphic RBCs Present H (None) Ovalocytes 1+ H (None) PT (9.8-11.6) sec INR Ratio APTT (24.3-30.1) sec Sodium 143 (136-145) meq/L Potassium 3.6 (3.5-5.1) meq/L Chloride 116 H (98-107) meq/L Carbon Dioxide 17.2 L (21.0-32.0) meq/L Anion Gap 10 (5-15) meq/L BUN 27 H (7-18) mg/dL Creatinine 2.00 H (0.60-1.30) mg/dL Estimated GFR 32 L (>89) mL/min Random Glucose 96 (74-106) mg/dL Calcium 7.1 L* (8.5-10.1) mg/dL Prot Corrected Calcium 7.6 L (8.5-10.1) mg/dL Magnesium (1.5-2.5) mg/dL Iron (65-175) mcg/dL TIBC (250-450) mcg/dL % Saturation (20-50) % Total Bilirubin (0.2-1.0) mg/dL AST (15-37) U/L ALT (12-78) U/L Alkaline Phosphatase (45-117) U/L Troponin I (0.02-0.05) ng/mL Total Protein 6.1 L D (6.4-8.2) g/dL Albumin (3.4-5.0) g/dL Lipase (73-393) U/L Urine Color (Yellw/Straw) Urine Clarity (Clear) Urine pH (5.0-8.5) Ur Specific [place] (1.002-1.035) Urine Protein (Neg-Trace) mg/dL Urine Glucose (UA) (Negative) mg/dL Urine Ketones (Negative) mg/dL Urine Occult Blood (Negative) Urine Nitrate (Negative) Urine Bilirubin (Negative) Urine Urobilinogen (Less than 2) mg/dL Ur Leukocyte Esterase (Negative) Urine WBC (0-5) /hpf Ur Squamous Epith Cells (0-5) /hpf Urine Bacteria (None) /hpf Urine Mucus (Occasional) /lpf Micro UA Comment Ur Microscopic Review Urine Culture Comments Blood Type A Positive Antibody Screen Negative MTS Gel Crossmatch See Detail Bld Prod Order Comment 07/10/18 07/10/18 Range/Units 12:12 17:02 CBC w Diff WBC (4.0-11.0) th/mm3 RBC (4.50-5.90) mil/mm3 Hgb 7.4 L 9.7 L D (13.0-17.0) gm/dL Hct 22.9 L 30.9 L (39.0-51.0) % MCV (80.0-100.0) fL MCH (27.0-34.0) pg MCHC (32.0-36.0) % RDW (11.6-17.2) % Plt Count (150-450) th/mm3 MPV (7.0-11.0) fL Neut % (Auto) (16.0-70.0) % Lymph % (Auto) (9.0-44.0) % [place] % (Auto) (0.0-8.0) % Eos % (Auto) (0.0-4.0) % Baso % (Auto) (0.0-2.0) % Neut # (Auto) (1.8-7.7) th/mm3 Lymph # (Auto) (1.0-4.8) th/mm3 [place] # (Auto) (0.0-0.9) th/mm3 Eos # (Auto) (0.0-0.4) th/mm3 Baso # (Auto) (0.0-0.2) th/mm3 WBC Differential Diff Scan Differential Comment Toxic Granulation (None) Platelet Estimate (Normal) Platelet Morphology (Normal) Dimorphic RBCs (None) Ovalocytes (None) PT (9.8-11.6) sec INR Ratio APTT (24.3-30.1) sec Sodium (136-145) meq/L Potassium (3.5-5.1) meq/L Chloride (98-107) meq/L Carbon Dioxide (21.0-32.0) meq/L Anion Gap (5-15) meq/L BUN (7-18) mg/dL Creatinine (0.60-1.30) mg/dL Estimated GFR (>89) mL/min Random Glucose (74-106) mg/dL Calcium (8.5-10.1) mg/dL Prot Corrected Calcium (8.5-10.1) mg/dL Magnesium (1.5-2.5) mg/dL Iron (65-175) mcg/dL TIBC (250-450) mcg/dL % Saturation (20-50) % Total Bilirubin (0.2-1.0) mg/dL AST (15-37) U/L ALT (12-78) U/L Alkaline Phosphatase (45-117) U/L Troponin I (0.02-0.05) ng/mL Total Protein (6.4-8.2) g/dL Albumin (3.4-5.0) g/dL Lipase (73-393) U/L Urine Color (Yellw/Straw) Urine Clarity (Clear) Urine pH (5.0-8.5) Ur Specific [place] (1.002-1.035) Urine Protein (Neg-Trace) mg/dL Urine Glucose (UA) (Negative) mg/dL Urine Ketones (Negative) mg/dL Urine Occult Blood (Negative) Urine Nitrate (Negative) Urine Bilirubin (Negative) Urine Urobilinogen (Less than 2) mg/dL Ur Leukocyte Esterase (Negative) Urine WBC (0-5) /hpf Ur Squamous Epith Cells (0-5) /hpf Urine Bacteria (None) /hpf Urine Mucus (Occasional) /lpf Micro UA Comment Ur Microscopic Review Urine Culture Comments Blood Type Antibody Screen MTS Gel Crossmatch Bld Prod Order Comment Imaging Data Radiologist's impression: Chest X-Ray 07/06/18 12:12 CONCLUSION: Stable chest appearance. Abdomen/Pelvis CT 07/08/18 00:00 CONCLUSION: 1. 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 2. Moderate bilateral hydronephrosis above a distended bladder with left sided bladder diverticulum. Findings may be related to enlarged prostate and bladder outlet obstruction. 3. Multiple circumscribed hepatic lesions similar to a CT chest from September, probably complex cysts. Discharge Plan Discharge Disposition Patient Disposition: /Home Health Service Discharge Condition Condition: Stable Discharge Order Discharge Orders: Discharge Order (Routine); Ordered 07/11/18 Ordered By: Vita De La Cruz Discharge Details Anticipated Discharge Date: 07/11/18 Discharge Comment: Have patient follow up with Dr. Juanpablo lua for Thursday on 07/13/18. Physicians Team ED Provider: Eliezer Vergara Primary Care Provider: Steph Merino Attending Provider: Clare Calderon Other Providers: Amauri Andres V ; Екатерина Willams ; Luisa Gonzalez Status ED Status: Left Department Discharge Information Discharge Date/Time: 07/06/18 15:10
[2018-07-06 12:31] LABS: Chloride 109 meq/L (98-107); Potassium 4.7 meq/L (3.5-5.1); Sodium 137 meq/L (136-145)
[2018-07-06 12:35] LABS: Albumin 2.6 g/dL (3.4-5.0); Anion Gap 9 meq/L (5-15); Blood Urea Nitrogen 42 mg/dL (7-18); Calcium 8.1 mg/dL (8.5-10.1); Carbon Dioxide 18.8 meq/L (21.0-32.0); Glucose,Random 102 mg/dL (74-106); Lipase 276 U/L (73-393)
--- NOTE | 2018-07-06 12:35 | XR ---
EXAM DATE: 07/06/2018 12:12 PM EDT AGE/SEX: 87 years / Male INDICATIONS: Weaknss and shortness of breath. CLINICAL DATA: This is the patient's initial encounter. Patient reports that signs and symptoms have been present for 3 days and indicates a pain score of 0/10. MEDICAL/SURGICAL HISTORY: None. None. COMPARISON: [facility], XR CHEST PA AND LAT, 08/21/2017. . FINDINGS: Patchy reticular interstitial prominence is grossly unchanged. No evidence of alveolar consolidation or significant effusion. Cardiac contours are satisfactory for technique and projection. CONCLUSION: Stable chest appearance. Electronically signed by: Fuad Schroeder MD 07/06/2018 12:34 PM EDT
[2018-07-06 12:38] LABS: Alanine Aminotransferase 20 U/L (12-78); Aspartate Aminotransferase 22 U/L (15-37); Glomerular Filtration Rate 36 mL/min (>89)
[2018-07-06 12:40] LABS: Activated Partial Thrombo Time 24.5 sec (24.3-30.1); INR 1.1 Ratio; Prothrombin Time 10.8 sec (9.8-11.6); Total Protein 7.7 g/dL (6.4-8.2)
[2018-07-06 12:41] LABS: Alkaline Phosphatase 90 U/L (45-117)
[2018-07-06 12:56] LABS: Baso # (Auto) 0.1 th/mm3 (0.0-0.2); Baso % (Auto) 0.6 % (0.0-2.0); Eos # (Auto) 0.1 th/mm3 (0.0-0.4); Eos % (Auto) 1.3 % (0.0-4.0); Lymph # (Auto) 1.2 th/mm3 (1.0-4.8); Mean Corpuscular HGB Conc 33.4 % (32.0-36.0); Mean Corpuscular Hemoglobin 28.6 pg (27.0-34.0); Mean Corpuscular Volume 85.5 fL (80.0-100.0); Mean Platelet Volume 8.2 fL (7.0-11.0); Mono # (Auto) 0.8 th/mm3 (0.0-0.9); Mono % (Auto) 8.3 % (0.0-8.0); Neut # (Auto) 7.8 th/mm3 (1.8-7.7); Neut % (Auto) 77.8 % (16.0-70.0); Platelet Count 449 th/mm3 (150-450); Red Blood Count 1.97 mil/mm3 (4.50-5.90); Red Cell Distribution Width 17.8 % (11.6-17.2)
[2018-07-06 13:04] LABS: Hematocrit 16.8 % (39.0-51.0); Hemoglobin 5.6 gm/dL (13.0-17.0)
[2018-07-06] MEDS ORDERED: Acetaminophen 325 MG Tablet PO PRN (13:19)
[2018-07-06] MEDS ORDERED: Bisacodyl 10 MG Supp RECTAL PRN (13:19)
--- NOTE | 2018-07-06 13:52 | P.HP ---
History of Present Illness Primary Care Physician: PROVIDER NON STAFF Chief Complaint: Anemia History of Present Illness: With a known medical history of hypertension, hyperlipidemia and history of GI bleed. Patient states that he got a call from his grandson that his hemoglobin was reportedly low from his primary care and it was advised that he be admitted to the hospital. Patient does state over the past few weeks he has had fatigue and feeling of lightheadedness and dizziness. He was discharged home last month from the hospital and advised to follow-up with GI. A colonoscopy has been scheduled for July 27. Patient does admit to intermittent black stools. He denies any bright red blood at this time or over the course of the past few weeks. He denies any weight loss or significant loss of appetite. He has been eating well. Denies any recent fevers, chills, cough, shortness of breath, dumping, nausea, vomiting, diarrhea or dysuria. He lives at home alone , is able to perform all ADLs per self. Overall is been in generally good health except for the fatigue. - Diagnosis (1) GI bleed (2) Anemia Inpatient Certification: I certify that the inpatient services were ordered in accordance with Medicare regulations governing the order. This includes certification that hospital inpatient services are reasonable and necessary and in the case of services not specified as inpatient-only under 42 CFR 419.22(n), that they are appropriately provided as inpatient services in accordance to with the 2-midnight benchmark under 43 CFR 412.3(e) Estimated Total Length of Stay (Days): 3 Plans for Post Hospital Care: Not yet determined Review of Systems All other systems reviewed negative except as stated in [facility] - History History Provided By: Patient - Medical History Medical History: Medical History (Last Reviewed 07/06/18 @ 13:54 by Vita De La Cruz) Depression History of high cholesterol Hypertension Hypothyroid - Surgical History Surgical History: Surgical History (Last Reviewed 07/06/18 @ 13:54 by Vita De La Cruz) Hx of hernia repair - Family History Family History: Family History (Last Reviewed 07/06/18 @ 13:54 by Vita De La Cruz) Other No significant family history - Social History I have reviewed the patient's Social History: Yes - Tobacco History Second Hand Smoke Exposure: No Smoking Status: Never smoker - Alcohol History How Often Do You Have a Drink Containing Alcohol: Never - Substance Use History Substance History: No History of Abuse - Travel History Recent Travel in the [place] Within the Last 8 Weeks: No Recent Travel Out of the Country Within the Last 8 Weeks: No - Immunization History Tetanus Immunization: >5 Years Medications and Allergies Active Medications: Active Medications Acetaminophen (Tylenol) 650 mg PO Q4H PRN PRN Reason: Temp > 100.4 Al Hydroxide/Mg Hydroxide (Milk Of Magnesia Liq) 30 ml PO Q12H PRN PRN Reason: Mild Constipation Bisacodyl (Dulcolax Supp) 10 mg RECTAL DAILY PRN PRN Reason: SEVERE CONSITIPATION Pantoprazole Sodium 80 mg/ (Sodium Chloride) 100 mls @ 10 mls/hr IV.CONT CONT RODNEY Lactulose (Lactulose Liq) 30 ml PO DAILY PRN PRN Reason: SEVERE CONSITIPATION Ondansetron HCl (Zofran Inj) 4 mg IV.PUSH Q6H PRN PRN Reason: NAUSEA OR VOMITING Sennosides (Senokot) 17.2 mg PO Q12H PRN PRN Reason: Moderate Constipation Allergies Allergy/AdvReac Type Severity Reaction Status Date / Time No Known Allergies Allergy Verified 07/06/18 12:06 Home Medications Medication Instructions Recorded Confirmed Type atorvastatin 10 mg PO DAILY 06/11/18 07/06/18 History levothyroxine 25 mcg PO DAILY 06/11/18 07/06/18 History lisinopril-hydrochlorothiazide 1 tab PO DAILY 06/11/18 07/06/18 History ferrous sulfate [iron] 325 mg PO DAILY 07/06/18 07/06/18 History Exam Vital signs: Vital Signs 07/06/18 11:42 07/06/18 12:04 07/06/18 12:45 Temperature 98.6 F Pulse Rate 108 H 92 H 80 Respiratory Rate 16 18 17 Blood Pressure 115/56 L 91/46 L 98/38 L Pulse Oximetry 100 100 98 07/06/18 13:05 07/06/18 13:25 07/06/18 13:30 Temperature Pulse Rate 77 82 82 Respiratory Rate 18 18 17 Blood Pressure 95/41 L 62/54 L 105/41 L Pulse Oximetry 94 L 98 Intake & Output 07/05/18 07/06/18 07/06/18 18:59 06:59 18:59 Intake Total 1000 / 1000 Balance 1000 / 1000 Weight 60 kg Intake: IV 1000 / 1000 NS Inj 1,000 ML @ Wide Open IV. 1000 / 1000 SIG BOLUS ONE Rx#:[id number] Narrative: GENERAL: Well-developed, well-nourished patient in NAD. SKIN: Warm and dry. No rash. Pale. HEAD: Normocephalic. Atraumatic. EYES: Pupils equal and round. No scleral icterus. No injection or drainage. ENT: No nasal bleeding or discharge. Mucous membranes pink and moist. NECK: Supple. Trachea midline. CARDIOVASCULAR: Regular rate and rhythm. S1, S2 noted. No murmur appreciated. RESPIRATORY: No accessory muscle use. Clear to auscultation. Breath sounds equal bilaterally. GASTROINTESTINAL: Abdomen soft, non-tender, nondistended. Normoactive bowel sounds x4. MUSCULOSKELETAL: No obvious deformities. Extremities without clubbing, cyanosis , or edema. NEUROLOGICAL: Awake and alert. No obvious cranial nerve deficits. Motor grossly within normal limits. 5/5 muscle strength in bilateral upper and lower extremities. Normal speech. PSYCHIATRIC: Appropriate mood and affect; insight and judgment normal. Results - Labs CBC & Chem 7: 07/06/18 12:00 07/06/18 12:00 Labs: Laboratory Results - last 24 hr 07/06/18 07/06/18 07/06/18 12:00 12:00 12:00 CBC w Diff Slide review pending WBC 10.0 RBC 1.97 L Hgb 5.6 L* Hct 16.8 L* MCV 85.5 MCH 28.6 MCHC 33.4 RDW 17.8 H Plt Count 449 D MPV 8.2 Neut % (Auto) 77.8 H Lymph % (Auto) 12.0 [place] % (Auto) 8.3 H Eos % (Auto) 1.3 Baso % (Auto) 0.6 Neut # (Auto) 7.8 H Lymph # (Auto) 1.2 [place] # (Auto) 0.8 Eos # (Auto) 0.1 Baso # (Auto) 0.1 Differential Comment . PT 10.8 INR 1.1 APTT 24.5 Sodium 137 Potassium 4.7 Chloride 109 H Carbon Dioxide 18.8 L Anion Gap 9 BUN 42 H Creatinine 1.80 H Estimated GFR 36 L Random Glucose 102 Calcium 8.1 L Total Bilirubin 0.2 AST 22 ALT 20 Alkaline Phosphatase 90 Troponin I Less than 0.02 L Total Protein 7.7 Albumin 2.6 L Lipase 276 - Imaging Impressions Chest X-Ray 07/06/18 12:12 CONCLUSION: Stable chest appearance. Caprini VTE Risk Assessment Caprini VTE Risk Assessment: Moderate/High Risk (score >= 2) Caprini Risk Assessment Model: Point Value = 1 Point Value = 2 Point Value = 3 Point Value = 5 Age 41-60 Minor surgery BMI > 25 kg/m2 Swollen legs Varicose veins or History of unexplained or recurrent spontaneous Oral contraceptives or hormone replacement Sepsis (< 1 month) Serious lung disease, including pneumonia (< 1 month) Abnormal pulmonary function Acute myocardial infarction Congestive heart failure (< 1 month) History of inflammatory bowel disease Medical patient at bed rest Age 61-74 Arthroscopic surgery Major open surgery (> 45 min) Laparoscopic surgery (> 45 min) Malignancy Confined to bed (> 72 hours) Immobilizing plaster cast Central venous access Age >= 75 History of VTE Family history of VTE Factor V Leiden Prothrombin [id number] Lupus anticoagulant Anticardiolipin antibodies Elevated serum homocysteine Heparin-induced thrombocytopenia Other congenital or acquired thrombophilia Stroke (< 1 month) Elective arthroplasty Hip, pelvis, or leg fracture Acute spinal cord injury (< 1 month) Prophylaxis Regimen: Total Risk Factor Score Risk Level Prophylaxis Regimen 0-1 Low Early ambulation 2 Moderate Order ONE of the following: *Sequential Compression Device (SCD) *Heparin 5000 units SQ BID 3-4 Higher Order ONE of the following medications: *Heparin 5000 units SQ TID *Enoxaparin/Lovenox 40 mg SQ daily (WT < 150 kg, CrCl > 30 mL/min) *Enoxaparin/Lovenox 30 mg SQ daily (WT < 150 kg, CrCl > 10-29 mL/min) *Enoxaparin/Lovenox 30 mg SQ BID (WT < 150 kg, CrCl > 30 mL/min) AND/OR *Sequential Compression Device (SCD) 5 or more Highest Order ONE of the following medications: *Heparin 5000 units SQ TID (Preferred with Epidurals) *Enoxaparin/Lovenox 40 mg SQ daily (WT < 150 kg, CrCl > 30 mL/min) *Enoxaparin/Lovenox 30 mg SQ daily (WT < 150 kg, CrCl > 10-29 mL/min) *Enoxaparin/Lovenox 30 mg SQ BID (WT < 150 kg, CrCl > 30 mL/min) AND *Sequential Compression Device (SCD) Assessment and Plan - Assessment (1) GI bleed Code(s): K92.2 - Gastrointestinal hemorrhage, unspecified Status: Acute (2) Anemia Code(s): D64.9 - Anemia, unspecified Status: Acute - Plan This is an 87-year-old male with: GI bleed Anemia suspect secondary to history of iron deficiency anemia as well as blood loss History of iron deficiency anemia, receives iron transfusions -Patient does admit to overall fatigue, and black stools for the past week. Does have a history of iron deficiency anemia, follows with rod filler, Dr. Hughes. -Hemoglobin 5.6/hematocrit 16.8 on presentation. ED physician ordered 2 units PRBC to be transfused today. -Hemoccult positive. Will continue to monitor for any active bleeding. Trend H &H. Monitor vital signs. -Recent admission last month for anemia, was given transfusion, and GI saw patient with recommendations for follow up outpatient. -Gastroenterology consulted this admission, awaiting evaluation. Will transfuse ordered PRBC. -Will continue to monitor. Supportive care. Acute on chronic kidney disease -Patient denies any history of kidney disease, he presents with creatinine 1.8, GFR 36. -Will recheck in a.m. Hypertension, chronic: Hold ADOLPH inhibitor for now. BP labile. Continue to monitor BP trends. Hyperlipidemia, chronic: Will continue home medications. DVT prophylaxis: SCDs. Hold chemical prophylaxis secondary to anemia possible bleed.
[2018-07-06] MEDS ORDERED: Pantoprazole Inj 80 MG in Sodium Chlor 0.9% Inj 100 ML IV.CONT SCH (14:00)
[2018-07-06 14:41] LABS: Platelet Estimate Normal (Normal); Platelet Morphology Normal (Normal)
[2018-07-06 15:49] LABS: % Iron Saturation 8.5 % (20-50)
[2018-07-06 16:02] LABS: Bilirubin,Urine Negative (Negative); Clarity,Urine Clear (Clear); Color,Urine Yellow (Yellw/Straw); Glucose,Urine (UA) Negative (Negative); Leukocyte Esterase,Urine Negative (Negative); Nitrite,Urine Negative (Negative); Urobilinogen,Urine 0.2 mg/dL (Less than 2)
[2018-07-06 16:13] LABS: Bacteria,Urine Rare /hpf; Squamous Epithelial Cell,Urine 0-5 /hpf (0-5); WBC,Urine 0-5 /hpf (0-5)
[2018-07-06 16:14] LABS: Mucus,Urine Rare /lpf (Occasional)
[2018-07-06] MEDS: Sod Chloride 0.9% Inj 1,000 ML IV.CONT SCH (18:29)
[2018-07-06 22:29] LABS: Hematocrit 27.4 % (39.0-51.0); Hemoglobin 8.8 gm/dL (13.0-17.0)
[2018-07-07] MEDS: Sod Chloride 0.9% Inj 1,000 ML IV.CONT SCH ×3 (06:35→22:05)
[2018-07-07 06:41] LABS: Baso % (Auto) 0.3 % (0.0-2.0); Eos # (Auto) 0.1 th/mm3 (0.0-0.4); Eos % (Auto) 1.1 % (0.0-4.0); Hematocrit 25.6 % (39.0-51.0); Hemoglobin 8.3 gm/dL (13.0-17.0); Lymph # (Auto) 0.7 th/mm3 (1.0-4.8); Mean Corpuscular HGB Conc 32.6 % (32.0-36.0); Mean Corpuscular Volume 85.7 fL (80.0-100.0); Mean Platelet Volume 7.9 fL (7.0-11.0); Mono # (Auto) 0.6 th/mm3 (0.0-0.9); Mono % (Auto) 6.4 % (0.0-8.0); Neut # (Auto) 7.8 th/mm3 (1.8-7.7); Neut % (Auto) 84.2 % (16.0-70.0); Platelet Count 332 th/mm3 (150-450); Red Blood Count 2.98 mil/mm3 (4.50-5.90); Red Cell Distribution Width 15.6 % (11.6-17.2); White Blood Count 9.2 th/mm3 (4.0-11.0)
[2018-07-07 06:55] LABS: Potassium 4.8 meq/L (3.5-5.1)
[2018-07-07 07:02] LABS: Calcium 7.5 mg/dL (8.5-10.1)
[2018-07-07 07:03] LABS: Carbon Dioxide 17.4 meq/L (21.0-32.0)
--- NOTE | 2018-07-07 10:04 | P.PNIM ---
Subjective Interval history: Follow up GI bleed. Patient seen and examined, lying in bed comfortably in nad. Awaiting GI evaluation. Continued dark BM overnight. EGD today. VSS. Physical Exam Vital signs: Vital Signs 07/06/18 11:42 07/06/18 12:04 07/06/18 12:45 Temperature 98.6 F Pulse Rate 108 H 92 H 80 Respiratory Rate 16 18 17 Blood Pressure 115/56 L 91/46 L 98/38 L Pulse Oximetry 100 100 98 07/06/18 13:05 07/06/18 13:25 07/06/18 13:30 Temperature Pulse Rate 77 82 82 Respiratory Rate 18 18 17 Blood Pressure 95/41 L 62/54 L 105/41 L Pulse Oximetry 94 L 98 07/06/18 14:25 07/06/18 15:30 07/06/18 16:00 Temperature 98.7 F 98.6 F Pulse Rate 77 82 Respiratory Rate 18 34 H 24 Blood Pressure 111/32 L 106/46 L 114/53 L Pulse Oximetry 100 100 100 07/06/18 16:56 07/06/18 17:00 07/06/18 18:00 Temperature 98.6 F 97.6 F Pulse Rate 86 94 H 78 Respiratory Rate 23 38 H 20 Blood Pressure 114/53 L 120/47 L 99/21 L Pulse Oximetry 100 91 L 07/06/18 18:41 07/06/18 18:54 07/06/18 20:00 Temperature 99.1 F 99.2 F Pulse Rate 79 82 80 Respiratory Rate 22 23 27 H Blood Pressure 118/53 L 118/53 L 117/52 L Pulse Oximetry 100 100 100 07/06/18 23:00 07/07/18 00:00 07/07/18 02:19 Temperature Pulse Rate 80 76 80 Respiratory Rate 22 20 20 Blood Pressure 125/49 L 91/37 L 93/53 L Pulse Oximetry 07/07/18 03:00 07/07/18 04:00 07/07/18 08:00 Temperature 98.4 F Pulse Rate 94 H 80 88 Respiratory Rate 21 16 20 Blood Pressure 109/53 L 97/45 L 98/51 L Pulse Oximetry 100 Intake & Output 07/06/18 07/07/18 07/07/18 18:59 06:59 18:59 Intake Total 1640 / 1640 1480 / 1480 Output Total 100 / 100 800 / 800 Balance 1540 / 1540 680 / 680 Weight 60.1 kg 62.1 kg Intake: IV 1000 / 1000 1000 / 1000 NS Inj 1,000 ML @ 84 mls/hr IV. 1000 / 1000 CONT .[id number] RODNEY Rx#: [id number] NS Inj 1,000 ML @ Wide Open IV. 1000 / 1000 SIG BOLUS ONE Rx#:[id number] Oral 240 / 240 480 / 480 Intake (Blood Product) Amt 400 / 400 Rbc As-3 Leukoreduced Unit 0 / 0 [id number] Rbc As-5 Leukoreduced Unit 400 / 400 [id number] Output: Urine 100 / 100 800 / 800 Other: # Voids 2 Date of Last Bowel Movement 07/06/18 07/06/18 # Bowel Movements 2 Weight On Admission 60.1 kg Narrative: GENERAL: Well-developed, well-nourished patient in [facility]. SKIN: Warm and dry. No rash. Pale. HEAD: Normocephalic. Atraumatic. EYES: Pupils equal and round. No scleral icterus. No injection or drainage. ENT: No nasal bleeding or discharge. Mucous membranes pink and moist. NECK: Supple. Trachea midline. CARDIOVASCULAR: Regular rate and rhythm. S1, S2 noted. No murmur appreciated. RESPIRATORY: No accessory muscle use. Clear to auscultation. Breath sounds equal bilaterally. GASTROINTESTINAL: Abdomen soft, non-tender, nondistended. Normoactive bowel sounds x4. MUSCULOSKELETAL: No obvious deformities. Extremities without clubbing, cyanosis , or edema. NEUROLOGICAL: Awake and alert. No obvious cranial nerve deficits. Motor grossly within normal limits. 5/5 muscle strength in bilateral upper and lower extremities. Normal speech. PSYCHIATRIC: Appropriate mood and affect; insight and judgment normal. Results - Labs CBC & Chem 7: 07/07/18 05:40 07/07/18 05:40 Laboratory Results - last 24 hr 07/06/18 07/06/18 07/06/18 12:00 12:00 12:00 CBC w Diff Slide review pending WBC 10.0 RBC 1.97 L Hgb 5.6 L* Hct 16.8 L* MCV 85.5 MCH 28.6 MCHC 33.4 RDW 17.8 H Plt Count 449 D MPV 8.2 Neut % (Auto) 77.8 H Lymph % (Auto) 12.0 [place] % (Auto) 8.3 H Eos % (Auto) 1.3 Baso % (Auto) 0.6 Neut # (Auto) 7.8 H Lymph # (Auto) 1.2 [place] # (Auto) 0.8 Eos # (Auto) 0.1 Baso # (Auto) 0.1 WBC Differential . Diff Scan Auto diff confirmed Differential Comment . Platelet Estimate Normal Platelet Morphology Normal PT 10.8 INR 1.1 APTT 24.5 Sodium 137 Potassium 4.7 Chloride 109 H Carbon Dioxide 18.8 L Anion Gap 9 BUN 42 H Creatinine 1.80 H Estimated GFR 36 L Random Glucose 102 Calcium 8.1 L Iron TIBC % Saturation Total Bilirubin 0.2 AST 22 ALT 20 Alkaline Phosphatase 90 Troponin I Less than 0.02 L Total Protein 7.7 Albumin 2.6 L Lipase 276 Urine Color Urine Clarity Urine pH Ur Specific [place] Urine Protein Urine Glucose (UA) Urine Ketones Urine Occult Blood Urine Nitrate Urine Bilirubin Urine Urobilinogen Ur Leukocyte Esterase Urine WBC Ur Squamous Epith Cells Urine Bacteria Urine Mucus Micro UA Comment Ur Microscopic Review Urine Culture Comments Blood Type Antibody Screen MTS Gel Crossmatch 07/06/18 07/06/18 07/06/18 12:00 12:00 13:04 CBC w Diff WBC RBC Hgb Hct MCV MCH MCHC RDW Plt Count MPV Neut % (Auto) Lymph % (Auto) [place] % (Auto) Eos % (Auto) Baso % (Auto) Neut # (Auto) Lymph # (Auto) [place] # (Auto) Eos # (Auto) Baso # (Auto) WBC Differential Diff Scan Differential Comment Platelet Estimate Platelet Morphology PT INR APTT Sodium Potassium Chloride Carbon Dioxide Anion Gap BUN Creatinine Estimated GFR Random Glucose Calcium Iron 26 L TIBC 307 % Saturation 8.5 L Total Bilirubin AST ALT Alkaline Phosphatase Troponin I Total Protein Albumin Lipase Urine Color Urine Clarity Urine pH Ur Specific [place] Urine Protein Urine Glucose (UA) Urine Ketones Urine Occult Blood Urine Nitrate Urine Bilirubin Urine Urobilinogen Ur Leukocyte Esterase Urine WBC Ur Squamous Epith Cells Urine Bacteria Urine Mucus Micro UA Comment Ur Microscopic Review Urine Culture Comments Blood Type A Positive Antibody Screen Negative MTS Gel Crossmatch See Detail 07/06/18 07/06/18 07/07/18 15:40 22:23 05:40 CBC w Diff Auto diff final WBC 9.2 RBC 2.98 L Hgb 8.8 L D 8.3 L Hct 27.4 L 25.6 L MCV 85.7 MCH 28.0 MCHC 32.6 RDW 15.6 Plt Count 332 MPV 7.9 Neut % (Auto) 84.2 H Lymph % (Auto) 8.0 L [place] % (Auto) 6.4 Eos % (Auto) 1.1 Baso % (Auto) 0.3 Neut # (Auto) 7.8 H Lymph # (Auto) 0.7 L [place] # (Auto) 0.6 Eos # (Auto) 0.1 Baso # (Auto) 0.0 WBC Differential . Diff Scan Differential Comment . Platelet Estimate Platelet Morphology PT INR APTT Sodium Potassium Chloride Carbon Dioxide Anion Gap BUN Creatinine Estimated GFR Random Glucose Calcium Iron TIBC % Saturation Total Bilirubin AST ALT Alkaline Phosphatase Troponin I Total Protein Albumin Lipase Urine Color Yellow Urine Clarity Clear Urine pH 5.0 Ur Specific [place] 1.020 Urine Protein Negative Urine Glucose (UA) Negative Urine Ketones Negative Urine Occult Blood Negative Urine Nitrate Negative Urine Bilirubin Negative Urine Urobilinogen 0.2 Ur Leukocyte Esterase Negative Urine WBC 0-5 Ur Squamous Epith Cells 0-5 Urine Bacteria Rare H Urine Mucus Rare H Micro UA Comment Culture not ind Ur Microscopic Review Microscopic reviewed Urine Culture Comments Culture not ind Blood Type Antibody Screen MTS Gel Crossmatch 07/07/18 05:40 CBC w Diff WBC RBC Hgb Hct MCV MCH MCHC RDW Plt Count MPV Neut % (Auto) Lymph % (Auto) [place] % (Auto) Eos % (Auto) Baso % (Auto) Neut # (Auto) Lymph # (Auto) [place] # (Auto) Eos # (Auto) Baso # (Auto) WBC Differential Diff Scan Differential Comment Platelet Estimate Platelet Morphology PT INR APTT Sodium 139 Potassium 4.8 Chloride 112 H Carbon Dioxide 17.4 L Anion Gap 10 BUN 36 H Creatinine 1.60 H Estimated GFR 41 L Random Glucose 118 H Calcium 7.5 L Iron TIBC % Saturation Total Bilirubin AST ALT Alkaline Phosphatase Troponin I Total Protein Albumin Lipase Urine Color Urine Clarity Urine pH Ur Specific [place] Urine Protein Urine Glucose (UA) Urine Ketones Urine Occult Blood Urine Nitrate Urine Bilirubin Urine Urobilinogen Ur Leukocyte Esterase Urine WBC Ur Squamous Epith Cells Urine Bacteria Urine Mucus Micro UA Comment Ur Microscopic Review Urine Culture Comments Blood Type Antibody Screen MTS Gel Crossmatch - Imaging Impressions Chest X-Ray 10/16/18 12:12 CONCLUSION: Stable chest appearance. Assessment and Plan - Assessment (1) GI bleed Code(s): K92.2 - Gastrointestinal hemorrhage, unspecified Status: Acute (2) Anemia Code(s): D64.9 - Anemia, unspecified Status: Acute - Plan This is an 87-year-old male with: GI bleed Anemia suspect secondary to history of iron deficiency anemia as well as blood loss History of iron deficiency anemia, receives iron transfusions -Patient does admit to overall fatigue, and black stools for the past week. Does have a history of iron deficiency anemia, follows with vc++ developer, Dr. Hughes. -Hemoglobin 5.6/hematocrit 16.8 on presentation. ED physician ordered 2 units PRBC. H&H stable today. -Hemoccult positive. Will continue to monitor for any active bleeding. Trend H &H. Monitor vital signs. -Recent admission last month for anemia, was given transfusion, and GI saw patient with recommendations for follow up outpatient. -Gastroenterology consulted this admission, will perform EGD today. Continue to monitor and await further recommendations. May need colonoscopy tomorrow am. -Supportive care. Acute on chronic kidney disease -Patient denies any history of kidney disease, he presents with creatinine 1.8, GFR 36. improved to 1.6 today. Follow. Hypertension, chronic: Hold ADOLPH inhibitor for now. BP labile. Continue to monitor BP trends. Hyperlipidemia, chronic: Will continue home medications. DVT prophylaxis: SCDs. Hold chemical prophylaxis secondary to anemia possible bleed. Discharge Planning: Await GI recs.
[2018-07-07] MEDS ORDERED: Lidocaine PF 1% Inj 5 ML Syringe INFILTRATN ONE (12:29)
[2018-07-07 13:34] LABS: Hematocrit 26.3 % (39.0-51.0); Hemoglobin 8.3 gm/dL (13.0-17.0)
[2018-07-07] MEDS ORDERED: PEG 3350/E-Lyte Soln 4000 ML Bottle PO ONE (15:00)
[2018-07-07] MEDS: Pantoprazole Inj 80 MG in Sodium Chlor 0.9% Inj 100 ML IV.CONT SCH (15:37)
--- NOTE | 2018-07-07 18:11 | ECG ---
Date Performed: 07/06/2018 Time Performed: 11:57:57 PTAGE: 87 years EKG: Sinus rhythm NORMAL ECG NO PREVIOUS TRACING DOCTOR: Farhad Pandey Interpretating Date/Time 07/07/2018 18:10:42
[2018-07-07] MEDS: metroNIDAZOLE 500 MG Tablet PO SCH (20:52)
[2018-07-07 22:17] LABS: Hematocrit 28.7 % (39.0-51.0); Hemoglobin 9.1 gm/dL (13.0-17.0)
[2018-07-08] MEDS: Pantoprazole Inj 80 MG in Sodium Chlor 0.9% Inj 100 ML IV.CONT SCH ×2 (00:51→09:57)
[2018-07-08 04:44] LABS: Baso % (Auto) 0.2 % (0.0-2.0); Eos # (Auto) 0.1 th/mm3 (0.0-0.4); Hematocrit 26.5 % (39.0-51.0); Hemoglobin 8.3 gm/dL (13.0-17.0); Lymph # (Auto) 0.6 th/mm3 (1.0-4.8); Lymph % (Auto) 8.1 % (9.0-44.0); Mean Corpuscular HGB Conc 31.4 % (32.0-36.0); Mean Corpuscular Hemoglobin 27.7 pg (27.0-34.0); Mean Corpuscular Volume 88.1 fL (80.0-100.0); Mean Platelet Volume 7.9 fL (7.0-11.0); Mono # (Auto) 0.5 th/mm3 (0.0-0.9); Mono % (Auto) 6.4 % (0.0-8.0); Neut # (Auto) 6.8 th/mm3 (1.8-7.7); Neut % (Auto) 84.3 % (16.0-70.0); Platelet Count 347 th/mm3 (150-450); Red Cell Distribution Width 16.5 % (11.6-17.2)
[2018-07-08 04:57] LABS: Potassium 5.2 meq/L (3.5-5.1)
[2018-07-08 05:51] LABS: Calcium 7.4 mg/dL (8.5-10.1); Carbon Dioxide 18.6 meq/L (21.0-32.0)
[2018-07-08 06:27] LABS: Total Protein 7.4 g/dL (6.4-8.2)
[2018-07-08] MEDS: Sod Chloride 0.9% Inj 1,000 ML IV.CONT SCH ×2 (07:09→18:20)
[2018-07-08] MEDS ORDERED: Calcium Gluconate Inj 2 GM in Dextrose 5% in Water Inj 100 ML IV.SIG ONE ×2 (07:20)
[2018-07-08] MEDS: metroNIDAZOLE 500 MG Tablet PO SCH ×2 (08:50→20:42)
--- NOTE | 2018-07-08 09:46 | P.PNIM ---
Subjective Interval history: Follow-up GI bleed. Patient seen and examined, lying in bed comfortably, states he feels weak after GoLYTELY prep last evening. Patient will undergo colonoscopy today at 3pm. Further hospitalization depends on findings. No other complaints. Physical Exam Vital signs: Vital Signs 07/07/18 13:00 07/07/18 13:44 07/07/18 16:00 Temperature 98 F Pulse Rate 80 80 79 Respiratory Rate 16 16 23 Blood Pressure 117/52 L 126/54 L 103/58 L Pulse Oximetry 100 100 79 L 07/07/18 20:00 07/07/18 20:03 07/08/18 00:00 Temperature 97.5 F L 97.8 F Pulse Rate 76 76 86 Respiratory Rate 12 27 H Blood Pressure 138/54 L 123/48 L Pulse Oximetry 99 07/08/18 04:24 07/08/18 07:00 07/08/18 08:00 Temperature 98.0 F Pulse Rate 88 78 88 Respiratory Rate 37 H 19 22 Blood Pressure 142/63 H Pulse Oximetry 99 07/08/18 09:00 Temperature Pulse Rate 88 Respiratory Rate 19 Blood Pressure Pulse Oximetry Intake & Output 07/07/18 07/08/18 07/08/18 18:59 06:59 18:59 Intake Total 880 / 880 1825 / 1825 Output Total 400 / 400 Balance 480 / 480 1825 / 1825 Weight 63.1 kg Intake: IV 1824 182 Protonix Inj 80 MG In NS Inj 100 / 100 100 ML @ 10 mls/hr IV.CONT Q10H RODNEY Rx#:[id number] NS Inj 1,000 ML @ 84 mls/hr IV. 1725 / 1725 CONT .[id number] RODNEY Rx#: [id number] Oral 480 / 480 Anesthesia Amount 400 / 400 Output: Urine 400 / 400 Other: # Voids 10 Date of Last Bowel Movement 07/07/18 07/08/18 07/08/18 # Bowel Movements 4 10 Narrative: GENERAL: Well-developed, well-nourished patient in NAD. SKIN: Warm and dry. No rash. Pale. HEAD: Normocephalic. Atraumatic. EYES: Pupils equal and round. No scleral icterus. No injection or drainage. ENT: No nasal bleeding or discharge. Mucous membranes pink and moist. NECK: Supple. Trachea midline. CARDIOVASCULAR: Regular rate and rhythm. S1, S2 noted. No murmur appreciated. RESPIRATORY: No accessory muscle use. Clear to auscultation. Breath sounds equal bilaterally. GASTROINTESTINAL: Abdomen soft, non-tender, nondistended. Normoactive bowel sounds x4. MUSCULOSKELETAL: No obvious deformities. Extremities without clubbing, cyanosis , or edema. NEUROLOGICAL: Awake and alert. No obvious cranial nerve deficits. Motor grossly within normal limits. 5/5 muscle strength in bilateral upper and lower extremities. Normal speech. PSYCHIATRIC: Appropriate mood and affect; insight and judgment normal. Results - Labs CBC & Chem 7: 07/08/18 04:25 07/08/18 04:25 Laboratory Results - last 24 hr 07/07/18 07/07/18 07/08/18 13:25 22:00 04:25 CBC w Diff Auto diff final WBC 8.0 RBC 3.00 L Hgb 8.3 L 9.1 L 8.3 L Hct 26.3 L 28.7 L 26.5 L MCV 88.1 MCH 27.7 MCHC 31.4 L RDW 16.5 Plt Count 347 MPV 7.9 Neut % (Auto) 84.3 H Lymph % (Auto) 8.1 L [place] % (Auto) 6.4 Eos % (Auto) 1.0 Baso % (Auto) 0.2 Neut # (Auto) 6.8 Lymph # (Auto) 0.6 L [place] # (Auto) 0.5 Eos # (Auto) 0.1 Baso # (Auto) 0.0 WBC Differential . Differential Comment . Sodium Potassium Chloride Carbon Dioxide Anion Gap BUN Creatinine Estimated GFR Random Glucose Calcium Prot Corrected Calcium Total Protein 07/08/18 04:25 CBC w Diff WBC RBC Hgb Hct MCV MCH MCHC RDW Plt Count MPV Neut % (Auto) Lymph % (Auto) [place] % (Auto) Eos % (Auto) Baso % (Auto) Neut # (Auto) Lymph # (Auto) [place] # (Auto) Eos # (Auto) Baso # (Auto) WBC Differential Differential Comment Sodium 142 Potassium 5.2 H Chloride 114 H Carbon Dioxide 18.6 L Anion Gap 9 BUN 34 H Creatinine 1.80 H Estimated GFR 36 L Random Glucose 126 H Calcium 7.4 L* Prot Corrected Calcium 7.3 L* Total Protein 7.4 Assessment and Plan - Assessment (1) GI bleed Code(s): K92.2 - Gastrointestinal hemorrhage, unspecified Status: Acute (2) Anemia Code(s): D64.9 - Anemia, unspecified Status: Acute - Plan This is an 87-year-old male with: GI bleed Anemia suspect secondary to history of iron deficiency anemia as well as blood loss History of iron deficiency anemia, receives iron transfusions -Recent admission last month for anemia, was given transfusion, and GI saw patient with recommendations for follow up outpatient. -Patient does admit to overall fatigue, and black stools for the past week. Does have a history of iron deficiency anemia, follows with healthcare sales representative, Dr. Hughes. -Hemoglobin 5.6/hematocrit 16.8 on presentation. ED physician ordered 2 units PRBC. H&H stable today. -Hemoccult positive. Will continue to monitor for any active bleeding. Trend H &H. Monitor vital signs. -Gastroenterology consulted this admission, status post EGD yesterday, duodenal ulcer found. Continue on Protonix gtt. Started on antibiotics. GI to perform a colonoscopy today. -Supportive care. Acute on chronic kidney disease -Patient denies any history of kidney disease, he presents with creatinine 1.8, GFR 36. This seems to be patient's baseline after review of records. Continue to monitor BMP. Hypertension, chronic: Hold ADOLPH inhibitor for now. BP labile. Continue to monitor BP trends. Hyperlipidemia, chronic: Will continue home medications. DVT prophylaxis: SCDs. Hold chemical prophylaxis secondary to anemia possible bleed. Discharge Planning: Colonoscopy today.
--- NOTE | 2018-07-08 16:21 | GIPROC ---
[facility] [address] [place] [address], [id number] EGD PROCEDURE REPORT EXAM DATE: 07/07/2018 PATIENT NAME: Reji Van MR #: [id number] BIRTHDATE: 1930 ATTENDING: Amauri Andres MD ORDER #: [id number] ENGINEER: Bebe Arnold STATUS: inpatient INDICATIONS: The patient is a 87 yr old male here for an EGD due to acute post hemorrhagic anemia and melena PROCEDURE PERFORMED: EGD w/ directed submucosal injection(s), any substance MEDICATIONS: None and Per Anesthesia. TOPICAL ANESTHETIC: none CONSENT: The patient understands the risks and benefits of the procedure and understands that these risks include, but are not limited to: sedation, allergic reaction, infection, perforation and/or bleeding. Alternative means of evaluation and treatment include, among others: physical exam, x-rays, and/or surgical intervention. The patient elects to proceed with this endoscopic procedure. medical equipment was checked for proper function. Hand hygiene and appropriate measures for infection prevention was taken. After the risks, benefits and alternatives of the procedure were thoroughly explained, Informed consent was verified, confirmed and timeout was successfully executed by the treatment team. The patient was anesthetized with topical anesthesia and the Pentax [id number] endoscope was introduced through the mouth and advanced to the second portion of the duodenum. Retroflexed views revealed a hiatal hernia The gastroscope was then slowly withdrawn and removed. ESOPHAGUS: The z-line was located 33cm from the incisors. The z-line appeared irregular. STOMACH: There was moderate and erosive gastritis in the gastric antrum. DUODENUM: A medium sized non-bleeding non-bleeding, round, deep and clean-based ulcer with a pigmented spot was found in the duodenal bulb. Submucosal injection of 4ml of epinephrine 1:10,000 was performed around the bleeding site. The duodenal mucosa appeared normal in the 2nd part of the duodenum. ADVERSE EVENTS: There were no complications. IMPRESSIONS: Duodenal ulcer RECOMMENDATIONS: Continue PPI PATIENT CONDITION: stable DISPOSITION: REPEAT EXAM: Amauri Andres MD eSigned: Amauri Andres MD 07/08/2018 4:21 PM cc: PATIENT NAME: Reji Van MR#: [id number]
[2018-07-08] MEDS ORDERED: Chlorhexidine Gluconate 2% 1 Pack (2 Cloths) TOPICAL ONE (16:32)
--- NOTE | 2018-07-08 16:48 | GIPROC ---
[facility] [address] [place] [address], [id number] COLONOSCOPY PROCEDURE REPORT EXAM DATE: 07/08/2018 PATIENT NAME: Reji Van MR #: [id number] BIRTHDATE: 1930 ENDOSCOPIST: Amauri Andres MD ORDER #: [id number] PAINTER HAND: Sarahi Deluca STATUS: inpatient INDICATIONS: The patient is a 87 yr old male here for a colonoscopy due to hematochezia PROCEDURE PERFORMED: Colonoscopy with biopsy Submucosal injection, any substance MEDICATIONS: None and Per Anesthesia. PREP QUALITY: poor ESTIMATED BLOOD LOSS: None CONSENT: The patient understands the risks and benefits of the procedure and understands that these risks include, but are not limited to: sedation, allergic reaction, infection, perforation and/or bleeding. Alternative means of evaluation and treatment include, among others: physical exam, x-rays, and/or surgical intervention. The patient elects to proceed with this endoscopic procedure. medical equipment was checked for proper function. Hand hygiene and appropriate measures for infection prevention was taken. After the risks, benefits and alternatives of the procedure were thoroughly explained, Informed consent was verified, confirmed and timeout was successfully executed by the treatment team. A digital exam was performed and revealed no abnormalities of the rectum The Pentax [id number] endoscope was introduced through the anus and advanced to the cecum, which was identified by both the appendix and ileocecal valve. The instrument was then slowly withdrawn as the colon was fully examined. COLON FINDINGS: Severe diverticulosis was noted throughout the entire examined colon. A circumferential ulcerated, firm, fungating and polypoid shaped mass was found in the ascending colon. Multiple biopsies were performed. A tattoo was applied. Retroflexed views revealed internal hemorrhoids, Retroflexed views revealed internal hemorrhoids, and Retroflexed views revealed medium internal hemorrhoids The scope was then completely withdrawn from the patient and the procedure terminated. PROCEDURE WITHDRAWAL TIME:10minutes ADVERSE EVENTS: There were no complications. IMPRESSIONS: 1. Severe diverticulosis was noted throughout the entire examined colon 2. Circumferential mass was found in the ascending colon; multiple biopsies were performed; a tattoo was applied 3. Retroflexed views revealed internal hemorrhoids 4. Retroflexed views revealed internal hemorrhoids 5. Retroflexed views revealed medium internal hemorrhoids 6. Was performed 7. Revealed no abnormalities of the rectum RECOMMENDATIONS: 1. Await biopsy results. Biopsy results will not be ready for 7-10 days. If you don't hear from us in two weeks, call our office for results. 2. Xray for CT of abdomen with contrast 3. Xray for CT of pelvis with contrast 4. LABS- [facility] RECALL: Return 1 year Colonoscopy Amauri Andres MD eSigned: Amauri Andres MD 07/08/2018 4:48 PM cc: PATIENT NAME: Reji Van MR#: [id number]
[2018-07-08] MEDS ORDERED: Diatrizoate Meglum/Diatrizoate Sod Liq 9 ML UDC PO ONE (16:59)
[2018-07-08] MEDS ORDERED: Sodium Chlor 0.9% Inj 500 ML IV.SIG SCH (17:00)
--- NOTE | 2018-07-08 17:13 | P.DCO ---
- Diagnosis (1) GI bleed Status: Acute (2) Anemia Status: Acute - Physical Therapy Order: Evaluate and treat, Improve ambulation, Strength and gait training - Home Health Nursing Order: Medical education, Signs/symptoms of disease process, Medication education-adverse effect, Nursing assessment with vital signs - Case Management Consult Yes - Certification I have seen patient Reji Van on 07/08/18. My clinical findings support the need for the requested home health care services because: Deconditioned with increased weakness I certify that my clinical findings support that this patient is homebound because: Unsteady gait/balance
[2018-07-08] MEDS ORDERED: metroNIDAZOLE 500 MG Tablet PO SCH (21:00)
--- NOTE | 2018-07-08 22:15 | CT ---
EXAM DATE: 07/08/2018 8:56 PM EDT AGE/SEX: 87 years / Male INDICATIONS: Severe anemia. Possible gastrointestinal bleed. CLINICAL DATA: This is the patient's initial encounter. Patient reports that signs and symptoms have been present for 1 day and indicates a pain score of 5/10. MEDICAL/SURGICAL HISTORY: . Depression. High cholesterol. Hypertension. Hypothyroid. . Hernia repair. ORAL CONTRAST: Prescribed oral contrast ingested. RADIATION DOSE: 9.04 CTDI (mGy) COMPARISON: POI, CT CHEST W/O CONTRAST, 09/23/2017. . TECHNIQUE: Multiple contiguous axial images were obtained through the abdomen and pelvis following b olus infusion of 50 ml Visipaque 320 (iodixanol) nonionic water-soluble contrast as a single exam d ose. Prescribed oral contrast ingested. Using automated exposure control and adjustment of the mA an d/or kV according to patient size, radiation dose was kept as low as reasonably achievable to obtain optimal diagnostic quality images. DICOM format image data is available electronically for review an d comparison. FINDINGS: Lung bases demonstrate some mild scarring. Mild coronary artery calcifications. 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 There are multiple hepatic masses measuring up to 2.9 cm anteriorly . These appear to have been present on the chest CT from September 2017 probably represent complex cyst s. Spleen, adrenals and pancreas unremarkable. No calcified gallstones. There is moderate bilateral hydronephrosis and ureteral dilatation above a markedly distended bladder with a large left-sided diverticulum. The prostate is also enlarged measuring up to 7.4 cm in diamet er. There is mild anasarca. No bowel obstruction. No free air. No significant free fluid. CONCLUSION: 1. 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 2. Moderate bilateral hydronephrosis above a distended bladder with left sided bladder diverticulum. Findings may be related to enlarged prostate and bladder outlet obstruction. 3. Multiple circumscribed hepatic lesions similar to a CT chest from September, probably complex cysts . Electronically signed by: Sherwin Velarde MD 07/08/2018 10:14 PM EDT
[2018-07-09] MEDS: Sod Chloride 0.9% Inj 1,000 ML IV.CONT SCH ×2 (01:16→23:07)
[2018-07-09 04:48] LABS: Baso % (Auto) 0.1 % (0.0-2.0); Eos % (Auto) 0.1 % (0.0-4.0); Hematocrit 24.1 % (39.0-51.0); Hemoglobin 8.2 gm/dL (13.0-17.0); Lymph # (Auto) 0.4 th/mm3 (1.0-4.8); Lymph % (Auto) 4.6 % (9.0-44.0); Mean Corpuscular HGB Conc 34.1 % (32.0-36.0); Mean Corpuscular Hemoglobin 29.2 pg (27.0-34.0); Mean Corpuscular Volume 85.7 fL (80.0-100.0); Mean Platelet Volume 7.9 fL (7.0-11.0); Mono # (Auto) 0.5 th/mm3 (0.0-0.9); Neut # (Auto) 8.9 th/mm3 (1.8-7.7); Neut % (Auto) 90.2 % (16.0-70.0); Platelet Count 312 th/mm3 (150-450); Red Blood Count 2.82 mil/mm3 (4.50-5.90); White Blood Count 9.8 th/mm3 (4.0-11.0)
[2018-07-09 04:58] LABS: Potassium 5.4 meq/L (3.5-5.1)
[2018-07-09 05:02] LABS: Calcium 7.7 mg/dL (8.5-10.1); Carbon Dioxide 15.1 meq/L (21.0-32.0)
[2018-07-09] MEDS ORDERED: Sodium Polystyrene Sulfonate/Sorbitol Liq 15 GM/60 ML UDC PO ONE (08:00)
[2018-07-09] MEDS: metroNIDAZOLE 500 MG Tablet PO SCH ×2 (08:11→20:42)
--- NOTE | 2018-07-09 09:29 | P.PNIM ---
Subjective Interval history: Follow up GI bleed. Patient and examined, lying in bed comfortably in nad. Patients BMP worsened overnight, it was found that patient had hydronephrosis on CT and urinary retention, a FC has been placed and it was found that patient had 2 L of urine. Will continue catheter. Start on Flomax. Patient feels much relief. Kayexalate was given for elevated K, he has been having loose stool. PT worked with patient today, improving. Will follow labs in am. Physical Exam Vital signs: Vital Signs 07/08/18 10:00 07/08/18 11:00 07/08/18 12:00 Temperature Pulse Rate 78 78 82 Respiratory Rate 19 18 19 Blood Pressure Pulse Oximetry 07/08/18 12:07 07/08/18 13:00 07/08/18 14:00 Temperature Pulse Rate 78 74 82 Respiratory Rate 22 30 H 24 Blood Pressure 148/59 H Pulse Oximetry 07/08/18 15:00 07/08/18 16:00 07/08/18 16:50 Temperature 98.2 F 97.6 F Pulse Rate 80 82 78 Respiratory Rate 32 H 15 14 Blood Pressure 135/72 124/57 L Pulse Oximetry 07/08/18 17:05 07/08/18 17:20 07/08/18 20:00 Temperature 97.6 F 98.6 F Pulse Rate 81 84 92 H Respiratory Rate 16 16 28 H Blood Pressure 139/74 140/69 138/65 Pulse Oximetry 98 07/09/18 00:00 07/09/18 04:00 Temperature 98.1 F 97.6 F Pulse Rate 98 H 88 Respiratory Rate 36 H 20 Blood Pressure 160/75 H 110/50 L Pulse Oximetry Intake & Output 07/08/18 07/09/18 07/09/18 18:59 06:59 18:59 Intake Total 1055 / 1055 1000 / 1000 Output Total 800 / 800 Balance 255 / 255 1000 / 1000 Weight 64.9 kg Intake: IV 495 / 495 1000 / 1000 Protonix Inj 80 MG In NS Inj 100 / 100 100 ML @ 10 mls/hr IV.CONT Q10H RODNEY Rx#:[id number] NS Inj 1,000 ML @ 84 mls/hr IV. 275 / 275 1000 / 1000 CONT .[id number] RODNEY Rx#: [id number] Calcium Gluconate Inj 2 GM In 120 / 120 D5W Inj 100 ML @ 120 mls/hr IV. SIG ONCE ONE Rx#:[id number] Oral 360 / 360 Anesthesia Amount 200 / 200 Output: Urine 800 / 800 Other: # Voids 4 # Incontinent Voids 1 Date of Last Bowel Movement 07/08/18 07/08/18 Narrative: GENERAL: Well-developed, well-nourished patient in NAD. SKIN: Warm and dry. No rash. HEAD: Normocephalic. Atraumatic. EYES: Pupils equal and round. No scleral icterus. No injection or drainage. ENT: No nasal bleeding or discharge. Mucous membranes pink and moist. NECK: Supple. Trachea midline. CARDIOVASCULAR: Regular rate and rhythm. S1, S2 noted. No murmur appreciated. RESPIRATORY: No accessory muscle use. Clear to auscultation. Breath sounds equal bilaterally. GASTROINTESTINAL: Abdomen soft, non-tender, round. Normoactive bowel sounds x4. No tenderness. : FC in place with yellow urine. MUSCULOSKELETAL: No obvious deformities. Extremities without clubbing, cyanosis , or edema. NEUROLOGICAL: Awake and alert. No obvious cranial nerve deficits. Motor grossly within normal limits. 5/5 muscle strength in bilateral upper and lower extremities. Normal speech. PSYCHIATRIC: Appropriate mood and affect; insight and judgment normal. - Urinary Catheter Management Indwelling Urethral Catheter Cath placed during this visit: yes Reason for continuing: Other continuation reason Insertion date: 07/09/18 Insertion time: 07:45 Results - Labs CBC & Chem 7: 07/09/18 04:30 07/09/18 04:30 Laboratory Results - last 24 hr 07/09/18 07/09/18 04:30 04:30 CBC w Diff Auto diff final WBC 9.8 RBC 2.82 L Hgb 8.2 L Hct 24.1 L MCV 85.7 MCH 29.2 MCHC 34.1 RDW 17.0 Plt Count 312 MPV 7.9 Neut % (Auto) 90.2 H Lymph % (Auto) 4.6 L Mclennan % (Auto) 5.0 Eos % (Auto) 0.1 Baso % (Auto) 0.1 Neut # (Auto) 8.9 H Lymph # (Auto) 0.4 L Mclennan # (Auto) 0.5 Eos # (Auto) 0.0 Baso # (Auto) 0.0 WBC Differential . Differential Comment . Sodium 140 Potassium 5.4 H Chloride 113 H Carbon Dioxide 15.1 L Anion Gap 12 BUN 40 H Creatinine 3.10 H Estimated GFR 19 L Random Glucose 131 H Calcium 7.7 L - Imaging Impressions Abdomen/Pelvis CT 07/08/18 00:00 CONCLUSION: 1. 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 2. Moderate bilateral hydronephrosis above a distended bladder with left sided bladder diverticulum. Findings may be related to enlarged prostate and bladder outlet obstruction. 3. Multiple circumscribed hepatic lesions similar to a CT chest from September, probably complex cysts. Assessment and Plan - Assessment (1) GI bleed Code(s): K92.2 - Gastrointestinal hemorrhage, unspecified Status: Acute (2) Anemia Code(s): D64.9 - Anemia, unspecified Status: Acute - Plan This is an 87-year-old male with: GI bleed, improved. Anemia suspect secondary to history of iron deficiency anemia as well as acute blood loss, improved. History of iron deficiency anemia, receives iron transfusions outpatient. -Recent admission last month for anemia, was given transfusion, and GI saw patient with recommendations for follow up outpatient. -Patient does admit to overall fatigue, and black stools for the past week. Does have a history of iron deficiency anemia, follows with shift supervisor melting, Dr. Hughes. -Hemoglobin 5.6/hematocrit 16.8 on presentation. ED physician ordered 2 units PRBC. H&H stable improved. Continue to monitor. -Hemoccult positive in ED. Will continue to monitor for any active bleeding. None overnight. Monitor vital signs, have been stable. -Gastroenterology consulted this admission, status post EGD, duodenal ulcer found. Continued on Protonix. Continued on antibiotics Flagyl and Amoxicillin. -Colonoscopy performed yesterday with findings of a large mass in his colon. An abdominal/pelvis CT has been ordered and reviewed showing large cecal mass measuring up to 8.3 cm in diameter most characteristic of a cecal carcinoma possibly with some hazy infiltration of surrounding. Hydronephrosis has also been seen. See below. -General surgeon automation qa tester, Dr. Geronimo, has been called and updated about patient' s case. Will have patient follow up outpatient for an evaluation. -Palliative care has also been consulted for further input and recommendations. -Supportive care. Acute on chronic kidney disease Acute hyperkalemia Acute bilateral hydronephrosis secondary to bladder outlet obstruction History of BPH -Patient denies any history of kidney disease, he presents with creatinine 1.8, GFR 36, has significantly worsened overnight. -No reports of any urine output overnight, patient complaint of abdominal pain. -A bladder scan was done this am showing >800 ml. A FC was placed and found to have 2 L of urine. Patient feels much improved. -Will continue to monitor intake and output. -Started on Flomax. -Continue to monitor BMP in am. Started on IVF 100 ml/hr, continue overnight. -Kayexalate given x 1, patient is responding well, loose stools noted. -Monitor for any arrhythmias. Hypertension, chronic: Hold ADOLPH inhibitor for now. BP labile. Continue to monitor BP trends. Hyperlipidemia, chronic: Will continue home medications. DVT prophylaxis: SCDs. Hold chemical prophylaxis secondary to anemia possible bleed. Discharge Planning: Await clinical improvement, 24-48 hours.
--- NOTE | 2018-07-09 11:13 | P.CONPAL ---
Consult Service: Palliative Care Requesting Physician: Vita De La Cruz Reason for Consult: a. To assist with evaluation and management of symptoms including: weakness b. To assist medical decision maker(s) with: better understanding of current medical conditions; weighing benefits/burdens of medical treatment options; making medical treatment decisions. Primary Care Provider: Steph Merino MD History of Present Illness History of Present Illness: Mr. Van is an 87-year-old male patient who presented to [facility] on 07/06 for evaluation of abnormal lab work. Patient states his grandson called him and told him his hemoglobin was "5 or something" and he needed to go to the hospital. Mr. Van has a history of iron deficiency anemia and follows with Dr. Hughes, hematology. He has weekly blood work. Patient was hospitalized in May, with similar issues and was advised to follow-up with GI. A colonoscopy has been scheduled for July 27, 2008. Diagnostic data: * Vital signs: Pulse 108, respirations 16, BP 115/56, oxygen saturation 100% on room air and oral temperature 98.6 * WBC: 10.0, hemoglobin 5.6, hematocrit 16.8, platelets 449, neutrophils 77.8% * PT: 10.8, INR 1.1, APTT 24.5 * Sodium: 137, potassium 4.7, chloride 109, carbon dioxide 18.8, glucose 102, calcium 8.1 * BUN: 42, creatinine 1.80, GFR 36 * Total bilirubin: 0.2, AST 22, ALT 20, alkaline phosphatase 90 * Troponin: <0.02 * Total protein: 7.7, albumin 2.6 * Urinalysis with rare bacteria and mucus; culture not indicated * Chest x-ray was stable. * Hemoccult positive stool While in the ED vitals remarkable for hypotension and tachycardia. No EKG changes were noted. Hemoglobin of 5.6. Patient was transfused. GI was consulted for evaluation. Patient reports generalized fatigue and dizziness in recent weeks. He admits to intermittent black stools but denies history of bright red blood. He denied weight loss or change in appetite. Uncomplicated EGD on 07/07/2018 revealed duodenal ulcer. GI recommending patient remain on PPI. Colonoscopy on 07/08/2018 showed severe diverticulosis throughout the entire examined colon. A circumferential, firm, fungating and polypoid shaped mass was found in the ascending colon. Multiple biopsies were performed. Retroflexed views revealed internal hemorrhoids. No abnormalities were noted in the rectum. Awaiting results of biopsy. Recommending additional lab work-CEA. 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 Moderate bilateral hydronephrosis above a distended bladder with left-sided bladder diverticulum, findings may be related to enlarged prostate or bladder outlet obstruction. Multiple circumscribed hepatic lesions similar to a CT chest from September, probably complex cysts. Palliative Care was consulted to assist with symptom management and to discuss with the patient/family the benefits and burdens of his current illnesses and the options regarding future care. Patient examined sitting upright in recliner. His step grandson is also present. Patient tells me he was having some abdominal pain and fullness which was relieved after Garcia catheter was placed. CT abdomen showed urinary retention; 2 L urine drained status post Garcia catheter placement. Started on Flomax. BMP worsened overnight. Kayexalate was given for elevated K. Patient's medical treatment goals reman aggressive pending biopsy results. He wishes to remain a FULL CODE. Patient states he is Sabianist and believes in "[employer]." A living will was completed in Jan, 2018 which states the patient would not want his life prolonged if he were to have an incurable/ irreversible condition that would result in his within a relatively short period of time; if he becomes unconscious and to a reasonable degree of medical certainty would not regain consciousness; if the likely risks and burdens of treatment would outweigh the expected benefits. He directs that treatment for alleviation of pain or discomfort should be provided at all times even if it hastens his . HCS designation form was completed today 07/09/2018; patient' s step grandson, Dedrick Ramos (Alex), has been designated as the primary healthcare surrogate decision-maker. Copies of these documents are accessible in the patient's paper chart and will be faxed to HIM to be scanned into the EMR. Function/Cognitive Trajectory: Patient lives in his home alone. He is able to perform ADLs independently. Patient denies weight loss or significant decrease in appetite. Patient reports he is generally healthy overall except for fatigue. Review of Systems Constitutional: Reports fatigue, Reports lack of energy, Reports weakness, Denies anorexia, Denies weight loss Eyes: Denies pain Cardiovascular: Reports lightheadedness, Reports shortness of breath with activity, Denies chest pain Gastrointestinal: Reports black, tarry stools (Intermittent) Genitourinary: Reports difficulty urinating Hematologic/Lymphatic: Reports easy bleeding PMFSH - History History Provided By: Patient - Medical History Medical History: Medical History (Last Updated 07/09/18 @ 10:41 by JUDIT Esquivel) Chronic kidney disease Diabetes Diverticulosis Glaucoma Iron deficiency anemia Depression History of high cholesterol Hypertension Hypothyroid - Surgical History Surgical History: Surgical History (Last Reviewed 07/07/18 @ 07:19 by Yo Dobson) Hx of hernia repair - Family History Family History: Family History (Last Updated 07/09/18 @ 12:51 by JUDIT Esquivel) Son Diabetes Other Hypertension - Social History I have reviewed the patient's Social History: Yes - Tobacco History Second Hand Smoke Exposure: No Smoking Status: Never smoker - Alcohol History How Often Do You Have a Drink Containing Alcohol: Never - Substance Use History Substance History: No History of Abuse - Travel History Recent Travel in the [place] Within the Last 8 Weeks: No Recent Travel Out of the Country Within the Last 8 Weeks: No - Immunization History Tetanus Immunization: >5 Years Hx Influenza Vaccine This Season: Yes Medications and Allergies Active Medications: Active Medications Acetaminophen (Tylenol) 650 mg PO Q4H PRN PRN Reason: Temp > 100.4 Al Hydroxide/Mg Hydroxide (Milk Of Thomas Liq) 30 ml PO Q12H PRN PRN Reason: Mild Constipation Amoxicillin (Amoxil) 875 mg PO Q12HR [facility] Last Admin: 07/09/18 08:11 Dose: 875 mg Atorvastatin Calcium (Lipitor) 10 mg PO EVERY OTHER DAY [facility] Bisacodyl (Dulcolax Supp) 10 mg RECTAL DAILY PRN PRN Reason: SEVERE CONSITIPATION Ferrous Sulfate (Ferosul) 325 mg PO DAILY [facility] Sodium Chloride (Ns Inj) 1,000 mls @ 100 mls/hr IV.CONT .Q10H [facility] Last Admin: 07/09/18 01:16 Dose: 84 mls/hr Lactated Ringer's (Lr 1000 Ml Inj) 1,000 mls @ 30 mls/hr IV.SIG .Q24H [facility] Stop: 07/09/18 16:44 Sodium Chloride (Ns Inj) 500 mls @ 30 mls/hr IV.SIG .Q10H [facility] Lactulose (Lactulose Liq) 30 ml PO DAILY PRN PRN Reason: SEVERE CONSITIPATION Levothyroxine Sodium (Synthroid) 25 mcg PO DAILY@0600 [facility] Metronidazole (Flagyl) 500 mg PO BID [facility] Last Admin: 07/09/18 08:11 Dose: 500 mg Ondansetron HCl (Zofran Inj) 4 mg IV.PUSH Q6H PRN PRN Reason: NAUSEA OR VOMITING Pantoprazole Sodium (Protonix) 40 mg PO BID [facility] Last Admin: 07/09/18 08:11 Dose: 40 mg Sennosides (Senokot) 17.2 mg PO Q12H PRN PRN Reason: Moderate Constipation Tamsulosin HCl (Flomax) 0.4 mg PO DAILY [facility] Allergies Allergy/AdvReac Type Severity Reaction Status Date / Time No Known Allergies Allergy Verified 07/06/18 12:06 Home Medications Medication Instructions Recorded Confirmed Type atorvastatin 10 mg PO EVERY OTHER DAY 06/11/18 07/07/18 History levothyroxine 25 mcg PO DAILY 06/11/18 07/07/18 History lisinopril-hydrochlorothiazide 1 tab PO DAILY 06/11/18 07/07/18 History ferrous sulfate [iron] 325 mg PO DAILY 07/06/18 07/07/18 History Advance Directives Advance Directives Date on File: 07/09/18 Living Will: Unknown (Completed on 02/12/2018) Healthcare Surrogate: Yes (Completed 07/09/2018) Health Care Surrogate Name and Number: Patient's step-grandson, Dedrick Ramos (Alex), designated [facility] Documented care wishes: Living will is accessible in patient's paper chart. Documents are being faxed to HIM to be scanned into the EMR. Today's verbally stated goals: Goals are aggressive pending biopsy results. The process of cardiopulmonary resuscitation was discussed at length; patient wishes to remain a FULL CODE at this time. Family/friends goals: Family will respect patient's decisions regarding medical treatment goals Ethical and Legal Issues: No known ethical or legal issues at this time. Physical Exam Vital Signs: Vital Signs - 24 hr 07/08/18 11:00 07/08/18 12:00 07/08/18 12:07 Temperature Pulse Rate 78 82 78 Respiratory Rate 18 19 22 Blood Pressure 148/59 H Pulse Oximetry 07/08/18 13:00 07/08/18 14:00 07/08/18 15:00 Temperature Pulse Rate 74 82 80 Respiratory Rate 30 H 24 32 H Blood Pressure Pulse Oximetry 07/08/18 16:00 07/08/18 16:50 07/08/18 17:05 Temperature 98.2 F 97.6 F Pulse Rate 82 78 81 Respiratory Rate 15 14 16 Blood Pressure 135/72 124/57 L 139/74 Pulse Oximetry 07/08/18 17:20 07/08/18 20:00 07/09/18 00:00 Temperature 97.6 F 98.6 F 98.1 F Pulse Rate 84 92 H 98 H Respiratory Rate 16 28 H 36 H Blood Pressure 140/69 138/65 160/75 H Pulse Oximetry 98 07/09/18 04:00 Temperature 97.6 F Pulse Rate 88 Respiratory Rate 20 Blood Pressure 110/50 L Pulse Oximetry I&O: Intake & Output 07/07/18 07/08/18 07/09/18 07/10/18 06:59 06:59 06:59 06:59 Intake Total 3120 / 3120 2705 / 2705 2055 / 2055 Output Total 900 / 900 400 / 400 800 / 800 Balance 2220 / 2220 2305 / 2305 1255 / 1255 Weight 62.1 kg 63.1 kg 64.9 kg Physical Exam: CONSTITUTIONAL/GENERAL: This is an elderly male patient in no acute distress. TUBES/LINES/DRAINS: PIV, Garcia catheter. SKIN: No jaundice, rashes, or lesions. Generalized pallor. Skin temperature appropriate. Not diaphoretic. HEAD: Atraumatic. Normocephalic. EYES: Pupils equal and round and reactive. Extraocular motions intact. No scleral icterus. No injection or drainage. Fundi not examined. ENT: Hearing grossly normal. Nose without bleeding or purulent drainage. NECK: Trachea midline. Supple, nontender. No palpable thyroid enlargement or nodularity. CARDIOVASCULAR: Regular rate and rhythm. S1, S2 noted. No murmur appreciated. Peripheral pulses symmetric. RESPIRATORY/CHEST: Symmetric, unlabored respirations. Clear to auscultation. Breath sounds equal bilaterally. No accessory muscle usage GASTROINTESTINAL: Abdomen soft, non-tender, nondistended. No guarding. Bowel sounds present. GENITOURINARY: Without palpable bladder distension. Garcia catheter in place. MUSCULOSKELETAL: Extremities without clubbing, cyanosis, or edema. No mottling or clubbing. LYMPHATICS: No palpable cervical or supraclavicular adenopathy. NEUROLOGICAL: Awake and alert. Motor and sensory grossly within normal limits. Follows commands. Cognitively sharp. Moves all extremities. PSYCHIATRIC: No obvious anxiety/depression. Good insight and judgement related to medical conditions Diagnostic Tests Laboratory: Laboratory Results - last 72 hr 07/06/18 07/06/18 07/06/18 12:00 12:00 12:00 CBC w Diff Slide review pending WBC 10.0 RBC 1.97 L Hgb 5.6 L* Hct 16.8 L* MCV 85.5 MCH 28.6 MCHC 33.4 RDW 17.8 H Plt Count 449 D MPV 8.2 Neut % (Auto) 77.8 H Lymph % (Auto) 12.0 [place] % (Auto) 8.3 H Eos % (Auto) 1.3 Baso % (Auto) 0.6 Neut # (Auto) 7.8 H Lymph # (Auto) 1.2 [place] # (Auto) 0.8 Eos # (Auto) 0.1 Baso # (Auto) 0.1 WBC Differential . Diff Scan Auto diff confirmed Differential Comment . Platelet Estimate Normal Platelet Morphology Normal PT 10.8 INR 1.1 APTT 24.5 Sodium 137 Potassium 4.7 Chloride 109 H Carbon Dioxide 18.8 L Anion Gap 9 BUN 42 H Creatinine 1.80 H Estimated GFR 36 L Random Glucose 102 Calcium 8.1 L Prot Corrected Calcium Iron TIBC % Saturation Total Bilirubin 0.2 AST 22 ALT 20 Alkaline Phosphatase 90 Troponin I Less than 0.02 L Total Protein 7.7 Albumin 2.6 L Lipase 276 Urine Color Urine Clarity Urine pH Ur Specific [place] Urine Protein Urine Glucose (UA) Urine Ketones Urine Occult Blood Urine Nitrate Urine Bilirubin Urine Urobilinogen Ur Leukocyte Esterase Urine WBC Ur Squamous Epith Cells Urine Bacteria Urine Mucus Micro UA Comment Ur Microscopic Review Urine Culture Comments Blood Type Antibody Screen MTS Gel Crossmatch 07/06/18 07/06/18 07/06/18 12:00 12:00 13:04 CBC w Diff WBC RBC Hgb Hct MCV MCH MCHC RDW Plt Count MPV Neut % (Auto) Lymph % (Auto) [place] % (Auto) Eos % (Auto) Baso % (Auto) Neut # (Auto) Lymph # (Auto) [place] # (Auto) Eos # (Auto) Baso # (Auto) WBC Differential Diff Scan Differential Comment Platelet Estimate Platelet Morphology PT INR APTT Sodium Potassium Chloride Carbon Dioxide Anion Gap BUN Creatinine Estimated GFR Random Glucose Calcium Prot Corrected Calcium Iron 26 L TIBC 307 % Saturation 8.5 L Total Bilirubin AST ALT Alkaline Phosphatase Troponin I Total Protein Albumin Lipase Urine Color Urine Clarity Urine pH Ur Specific [place] Urine Protein Urine Glucose (UA) Urine Ketones Urine Occult Blood Urine Nitrate Urine Bilirubin Urine Urobilinogen Ur Leukocyte Esterase Urine WBC Ur Squamous Epith Cells Urine Bacteria Urine Mucus Micro UA Comment Ur Microscopic Review Urine Culture Comments Blood Type A Positive Antibody Screen Negative MTS Gel Crossmatch See Detail 07/06/18 07/06/18 07/07/18 15:40 22:23 05:40 CBC w Diff Auto diff final WBC 9.2 RBC 2.98 L Hgb 8.8 L D 8.3 L Hct 27.4 L 25.6 L MCV 85.7 MCH 28.0 MCHC 32.6 RDW 15.6 Plt Count 332 MPV 7.9 Neut % (Auto) 84.2 H Lymph % (Auto) 8.0 L [place] % (Auto) 6.4 Eos % (Auto) 1.1 Baso % (Auto) 0.3 Neut # (Auto) 7.8 H Lymph # (Auto) 0.7 L [place] # (Auto) 0.6 Eos # (Auto) 0.1 Baso # (Auto) 0.0 WBC Differential . Diff Scan Differential Comment . Platelet Estimate Platelet Morphology PT INR APTT Sodium Potassium Chloride Carbon Dioxide Anion Gap BUN Creatinine Estimated GFR Random Glucose Calcium Prot Corrected Calcium Iron TIBC % Saturation Total Bilirubin AST ALT Alkaline Phosphatase Troponin I Total Protein Albumin Lipase Urine Color Yellow Urine Clarity Clear Urine pH 5.0 Ur Specific [place] 1.020 Urine Protein Negative Urine Glucose (UA) Negative Urine Ketones Negative Urine Occult Blood Negative Urine Nitrate Negative Urine Bilirubin Negative Urine Urobilinogen 0.2 Ur Leukocyte Esterase Negative Urine WBC 0-5 Ur Squamous Epith Cells 0-5 Urine Bacteria Rare H Urine Mucus Rare H Micro UA Comment Culture not ind Ur Microscopic Review Microscopic reviewed Urine Culture Comments Culture not ind Blood Type Antibody Screen MTS Gel Crossmatch 07/07/18 07/07/18 07/07/18 05:40 13:25 22:00 CBC w Diff WBC RBC Hgb 8.3 L 9.1 L Hct 26.3 L 28.7 L MCV MCH MCHC RDW Plt Count MPV Neut % (Auto) Lymph % (Auto) [place] % (Auto) Eos % (Auto) Baso % (Auto) Neut # (Auto) Lymph # (Auto) [place] # (Auto) Eos # (Auto) Baso # (Auto) WBC Differential Diff Scan Differential Comment Platelet Estimate Platelet Morphology PT INR APTT Sodium 139 Potassium 4.8 Chloride 112 H Carbon Dioxide 17.4 L Anion Gap 10 BUN 36 H Creatinine 1.60 H Estimated GFR 41 L Random Glucose 118 H Calcium 7.5 L Prot Corrected Calcium Iron TIBC % Saturation Total Bilirubin AST ALT Alkaline Phosphatase Troponin I Total Protein Albumin Lipase Urine Color Urine Clarity Urine pH Ur Specific [place] Urine Protein Urine Glucose (UA) Urine Ketones Urine Occult Blood Urine Nitrate Urine Bilirubin Urine Urobilinogen Ur Leukocyte Esterase Urine WBC Ur Squamous Epith Cells Urine Bacteria Urine Mucus Micro UA Comment Ur Microscopic Review Urine Culture Comments Blood Type Antibody Screen MTS Gel Crossmatch 07/08/18 07/08/18 07/09/18 04:25 04:25 04:30 CBC w Diff Auto diff final Auto diff final WBC 8.0 9.8 RBC 3.00 L 2.82 L Hgb 8.3 L 8.2 L Hct 26.5 L 24.1 L MCV 88.1 85.7 MCH 27.7 29.2 MCHC 31.4 L 34.1 RDW 16.5 17.0 Plt Count 347 312 MPV 7.9 7.9 Neut % (Auto) 84.3 H 90.2 H Lymph % (Auto) 8.1 L 4.6 L [place] % (Auto) 6.4 5.0 Eos % (Auto) 1.0 0.1 Baso % (Auto) 0.2 0.1 Neut # (Auto) 6.8 8.9 H Lymph # (Auto) 0.6 L 0.4 L [place] # (Auto) 0.5 0.5 Eos # (Auto) 0.1 0.0 Baso # (Auto) 0.0 0.0 WBC Differential . . Diff Scan Differential Comment . . Platelet Estimate Platelet Morphology PT INR APTT Sodium 142 Potassium 5.2 H Chloride 114 H Carbon Dioxide 18.6 L Anion Gap 9 BUN 34 H Creatinine 1.80 H Estimated GFR 36 L Random Glucose 126 H Calcium 7.4 L* Prot Corrected Calcium 7.3 L* Iron TIBC % Saturation Total Bilirubin AST ALT Alkaline Phosphatase Troponin I Total Protein 7.4 Albumin Lipase Urine Color Urine Clarity Urine pH Ur Specific [place] Urine Protein Urine Glucose (UA) Urine Ketones Urine Occult Blood Urine Nitrate Urine Bilirubin Urine Urobilinogen Ur Leukocyte Esterase Urine WBC Ur Squamous Epith Cells Urine Bacteria Urine Mucus Micro UA Comment Ur Microscopic Review Urine Culture Comments Blood Type Antibody Screen MTS Gel Crossmatch 07/09/18 04:30 CBC w Diff WBC RBC Hgb Hct MCV MCH MCHC RDW Plt Count MPV Neut % (Auto) Lymph % (Auto) [place] % (Auto) Eos % (Auto) Baso % (Auto) Neut # (Auto) Lymph # (Auto) [place] # (Auto) Eos # (Auto) Baso # (Auto) WBC Differential Diff Scan Differential Comment Platelet Estimate Platelet Morphology PT INR APTT Sodium 140 Potassium 5.4 H Chloride 113 H Carbon Dioxide 15.1 L Anion Gap 12 BUN 40 H Creatinine 3.10 H Estimated GFR 19 L Random Glucose 131 H Calcium 7.7 L Prot Corrected Calcium Iron TIBC % Saturation Total Bilirubin AST ALT Alkaline Phosphatase Troponin I Total Protein Albumin Lipase Urine Color Urine Clarity Urine pH Ur Specific [place] Urine Protein Urine Glucose (UA) Urine Ketones Urine Occult Blood Urine Nitrate Urine Bilirubin Urine Urobilinogen Ur Leukocyte Esterase Urine WBC Ur Squamous Epith Cells Urine Bacteria Urine Mucus Micro UA Comment Ur Microscopic Review Urine Culture Comments Blood Type Antibody Screen MTS Gel Crossmatch Result Diagrams: 07/09/18 04:30 07/09/18 04:30 Imaging: Chest X-Ray 07/06/18 12:12 CONCLUSION: Stable chest appearance. Abdomen/Pelvis CT 07/08/18 00:00 CONCLUSION: 1. 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 2. Moderate bilateral hydronephrosis above a distended bladder with left sided bladder diverticulum. Findings may be related to enlarged prostate and bladder outlet obstruction. 3. Multiple circumscribed hepatic lesions similar to a CT chest from September, probably complex cysts. Patient/Family Conference Present at Family Conference: Met with patient and his step-grandson at patient's bedside. Family Conference Location: Bedside Issues Discussed: * Palliative care role, purpose, approach * Additional medical, psychosocial, and spiritual history * Patients general health, functional status, and cognitive changes in the months leading up to the current hospitalization * Patient/family understanding of the current medical problems * Patient/family understanding of prognosis * Patients goals of care as best understood from advance directives and/or conversations and/or values * Current medical treatment options and benefits/burdens of those options * Likely scenarios comparing ongoing aggressive care with a transition to comfort measures only * Questions answered to the best of my ability * Palliative care contact information provided Assessment and Plan - Disease Oriented Problem List (1) GI bleed (2) Anemia (3) Acute kidney injury superimposed on chronic kidney disease (4) Hyperkalemia (5) Hydronephrosis (6) History of BPH (7) Hypertension (8) Hyperlipidemia Pertinent Non-Medical Issues: Psychosocial: Patient is originally from [place]. He served in the [employer] which is where he met his first . They were for approximately 25 years before they . Patient had a son and a daughter, both are . Patient's daughter when she was 28 years old, reason unknown. Patient's son within the past year from complications related to diabetes. Patient states he has 2 adopted sons but does not provide any other information about them. He lived in [place] for 30 years before moving to [place] in 1979. He worked at [employer] and found a cisimple. He was to his second for approximately 30 years, but she 8 years ago. Spiritual: Sabianist Legal: Healthcare surrogate designation form was completed 07/09/2018 and designates the patient's step grandson (Dedrick Ramos (Alex)) as the healthcare surrogate decision-maker. Ethical issues impacting care: No known ethical issues impacting care at this time. Important Contacts: Shante Main, daughter: [phone] Frank Youngblood, grandson: [phone] Prognosis: Patient is an 87-year-old male who is currently admitted with severe anemia and GI bleed. Prior to this hospitalization the patient was living alone and independent with all ADLs. 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 Goals aggressive pending biopsy results. It is unclear if the patient would be a candidate for aggressive intervention if biopsy results are indicative of cancer. Code Status: Full Code Plan: * FULL CODE * Patient currently showing insight and judgment related to his medical conditions. Healthcare surrogate designation form completed 07/09/2018. Patient's step-grandson, Dedrick Ramos (Alex), is designated HCS. * A living will was completed in Jan, 2018 which states the patient would not want his life prolonged if he were to have an incurable and irreversible condition that would result in his within a relatively short period of time if he becomes unconscious and to a reasonable degree of medical certainty will not regain consciousness; if the likely risks and burdens of treatment would outweigh the expected benefits. He directs that treatment for alleviation of pain or discomfort should be provided at all times even if it he since his . * Copies of these written advanced directives are accessible in the patient's paper chart and will be faxed to HIM to be scanned into the EMR. * Goals are aggressive pending biopsy results. The process of cardiopulmonary resuscitation was discussed at length; patient wishes to remain a FULL CODE at this time. * Discussed patient with Vita De La Cruz APRN and RN (Vita). * Symptom management-weakness: Patient has a history of anemia likely secondary to chronic iron deficiency anemia as well as acute GI bleed. Prior to this hospitalization the patient was living alone, able to perform all ADLs independently. Patient reports his general health has been good overall except for recent fatigue/weakness. Physical therapy is following; hopeful the patient will be able to return home with home health care services. * Palliative care will continue to follow this patient throughout his hospitalization to establish stress, assist with symptom management and clarification of medical treatment goals. Appreciation Thank you for the opportunity to participate in the care of Reji Van. Attestation Attestation: To help prompt me to consider important information that might be impacting today's encounter and assessment, information from prior notes written by myself or my colleagues may have been "brought forward" into today's note. My signature on this note, however, is an attestation that I personally performed the exam, history, and/or decision-making noted today, and, unless otherwise indicated, the interactions with patient, family, and staff as well as the review of records all occurred today. I also attest that the listed assessment and stated plan reflect my best clinical judgment today based on the combination of historical information, prior notes, and today's exam/ interactions. When time spent is documented, it refers only to time spent today by the signer, or if indicated, combined time spent today by collaborating physician/nurse practitioner.
[2018-07-09 16:04] LABS: Calcium 7.7 mg/dL (8.5-10.1); Carbon Dioxide 18.8 meq/L (21.0-32.0)
--- NOTE | 2018-07-09 17:44 | P.CONGI ---
History of Present Illness Consult reason: GI bleeding Chief complaint: severe anemia, GI BLEED History of Present Illness: Patient is 87-year-old male who is admitted to the hospital for severe anemia. He reports seeing dark black stools indicated were melena. During his hospital stay he was found to have bright red blood per rectum. He has been having symptoms of increasing fatigue malaise dizziness. He denies any syncope chest pain shortness of breath there is no history of heartburn dysphagia nausea vomiting constipation diarrhea abdominal pain jaundice ascites edema anorexia weight Review of Systems Constitutional: Reports daytime sleepiness, Reports fatigue, Reports lack of energy, Reports weakness Gastrointestinal: Reports black, tarry stools, Reports bright, red blood in stools PMFSH - History History Provided By: Patient - Medical History Medical History: Medical History (Last Updated 07/09/18 @ 10:41 by JUDIT Esquivel) Chronic kidney disease Diabetes Diverticulosis Glaucoma Iron deficiency anemia Depression History of high cholesterol Hypertension Hypothyroid - Surgical History Surgical History: Surgical History (Last Reviewed 07/07/18 @ 07:19 by Yo Dobson) Hx of hernia repair - Family History Family History: Family History (Last Updated 07/09/18 @ 12:51 by JUDIT Esquivel) Son Diabetes Hypertension - Tobacco History Second Hand Smoke Exposure: No Smoking Status: Never smoker - Alcohol History How Often Do You Have a Drink Containing Alcohol: Never - Substance Use History Substance History: No History of Abuse - Travel History Recent Travel in the [place] Within the Last 8 Weeks: No Recent Travel Out of the Country Within the Last 8 Weeks: No - Immunization History Tetanus Immunization: >5 Years Hx Influenza Vaccine This Season: Yes Medications and Allergies Active Medications: Active Medications Acetaminophen (Tylenol) 650 mg PO Q4H PRN PRN Reason: Temp > 100.4 Al Hydroxide/Mg Hydroxide (Milk Of Magnesia Liq) 30 ml PO Q12H PRN PRN Reason: Mild Constipation Amoxicillin (Amoxil) 875 mg PO Q12HR [facility] Last Admin: 07/09/18 08:11 Dose: 875 mg Atorvastatin Calcium (Lipitor) 10 mg PO EVERY OTHER DAY [facility] Bisacodyl (Dulcolax Supp) 10 mg RECTAL DAILY PRN PRN Reason: SEVERE CONSITIPATION Ferrous Sulfate (Ferosul) 325 mg PO DAILY [facility] Sodium Chloride (Ns Inj) 1,000 mls @ 100 mls/hr IV.CONT .Q10H [facility] Last Infusion: 07/09/18 09:53 Dose: 100 mls/hr Sodium Chloride (Ns Inj) 500 mls @ 30 mls/hr IV.SIG .Q10H [facility] Lactulose (Lactulose Liq) 30 ml PO DAILY PRN PRN Reason: SEVERE CONSITIPATION Levothyroxine Sodium (Synthroid) 25 mcg PO DAILY@0600 [facility] Metronidazole (Flagyl) 500 mg PO BID [facility] Last Admin: 07/09/18 08:11 Dose: 500 mg Ondansetron HCl (Zofran Inj) 4 mg IV.PUSH Q6H PRN PRN Reason: NAUSEA OR VOMITING Pantoprazole Sodium (Protonix) 40 mg PO BID [facility] Last Admin: 07/09/18 08:11 Dose: 40 mg Sennosides (Senokot) 17.2 mg PO Q12H PRN PRN Reason: Moderate Constipation Tamsulosin HCl (Flomax) 0.4 mg PO DAILY [facility] Last Admin: 07/09/18 12:44 Dose: 0.4 mg Allergies Allergy/AdvReac Type Severity Reaction Status Date / Time No Known Allergies Allergy Verified 07/06/18 12:06 Home Medications Medication Instructions Recorded Confirmed Type atorvastatin 10 mg PO EVERY OTHER DAY 06/11/18 07/07/18 History levothyroxine 25 mcg PO DAILY 06/11/18 07/07/18 History lisinopril-hydrochlorothiazide 1 tab PO DAILY 06/11/18 07/07/18 History ferrous sulfate [iron] 325 mg PO DAILY 07/06/18 07/07/18 History Exam Vital signs: Vital Signs 07/08/18 20:00 07/09/18 00:00 07/09/18 04:00 Temperature 98.6 F 98.1 F 97.6 F Pulse Rate 92 H 98 H 88 Respiratory Rate 28 H 36 H 20 Blood Pressure 138/65 160/75 H 110/50 L Pulse Oximetry 98 07/09/18 07:00 07/09/18 08:00 07/09/18 09:00 Temperature Pulse Rate 96 H 86 94 H Respiratory Rate 19 24 21 Blood Pressure Pulse Oximetry 07/09/18 09:24 07/09/18 10:00 07/09/18 11:03 Temperature Pulse Rate 88 92 H 86 Respiratory Rate 17 26 H 21 Blood Pressure 115/50 L 134/54 L Pulse Oximetry 07/09/18 12:00 07/09/18 13:00 07/09/18 14:00 Temperature Pulse Rate 98 H 92 H 82 Respiratory Rate 24 18 19 Blood Pressure Pulse Oximetry 07/09/18 15:00 07/09/18 16:00 Temperature Pulse Rate 88 86 Respiratory Rate 23 21 Blood Pressure Pulse Oximetry Intake & Output 07/08/18 07/09/18 07/09/18 18:59 06:59 18:59 Intake Total 1155 / 1155 1000 / 1000 Output Total 800 / 800 Balance 355 / 355 1000 / 1000 Weight 64.9 kg Intake: IV 595 / 595 1000 / 1000 Protonix Inj 80 MG In NS Inj 100 / 100 100 ML @ 10 mls/hr IV.CONT Q10H [facility] Rx#:[id number] NS Inj 1,000 ML @ 84 mls/hr IV. 275 / 275 1000 / 1000 CONT .[id number] [facility] Rx#: [id number] Calcium Gluconate Inj 2 GM In 120 / 120 D5W Inj 100 ML @ 120 mls/hr IV. SIG ONCE ONE Rx#:[id number] Oral 360 / 360 Anesthesia Amount 200 / 200 Output: Urine 800 / 800 Other: # Voids 4 # Incontinent Voids 1 Date of Last Bowel Movement 07/08/18 07/08/18 - Routine HEENT Exam Eye: Present: EOMI, PERRL ENT: Present: mucous membranes moist - Routine Neck Exam Present: supple, full ROM - Routine Respiratory Exam Present: CTA bilaterally - Routine Cardiovascular Exam Present: murmur Comments: Ejection systolic murmur grade 2/ 6 at the left sternal border Results - Labs CBC & Chem 7: 07/09/18 04:30 07/09/18 15:43 Labs: Laboratory Results - last 24 hr 07/09/18 07/09/18 07/09/18 04:30 04:30 04:30 CBC w Diff Auto diff final WBC 9.8 RBC 2.82 L Hgb 8.2 L Hct 24.1 L MCV 85.7 MCH 29.2 MCHC 34.1 RDW 17.0 Plt Count 312 MPV 7.9 Neut % (Auto) 90.2 H Lymph % (Auto) 4.6 L Dare % (Auto) 5.0 Eos % (Auto) 0.1 Baso % (Auto) 0.1 Neut # (Auto) 8.9 H Lymph # (Auto) 0.4 L Dare # (Auto) 0.5 Eos # (Auto) 0.0 Baso # (Auto) 0.0 WBC Differential . Differential Comment . Sodium 140 Potassium 5.4 H Chloride 113 H Carbon Dioxide 15.1 L Anion Gap 12 BUN 40 H Creatinine 3.10 H Estimated GFR 19 L Random Glucose 131 H Calcium 7.7 L Magnesium 2.2 07/09/18 15:43 CBC w Diff WBC RBC Hgb Hct MCV MCH MCHC RDW Plt Count MPV Neut % (Auto) Lymph % (Auto) [place]are % (Auto) Eos % (Auto) Baso % (Auto) Neut # (Auto) Lymph # (Auto) Dare # (Auto) Eos # (Auto) Baso # (Auto) WBC Differential Differential Comment Sodium 143 Potassium 4.0 D Chloride 114 H Carbon Dioxide 18.8 L Anion Gap 10 BUN 33 H Creatinine 2.70 H Estimated GFR 22 L Random Glucose 86 Calcium 7.7 L Magnesium - Imaging Impressions Abdomen/Pelvis CT 07/08/18 00:00 CONCLUSION: 1. 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 2. Moderate bilateral hydronephrosis above a distended bladder with left sided bladder diverticulum. Findings may be related to enlarged prostate and bladder outlet obstruction. 3. Multiple circumscribed hepatic lesions similar to a CT chest from September, probably complex cysts. Assessment and Plan (1) GI bleed Status: Acute Code(s): K92.2 - Gastrointestinal hemorrhage, unspecified (2) Anemia Status: Acute Code(s): D64.9 - Anemia, unspecified - Plan 1.IV Protonix drip 2. Monitor hemoglobin/hematocrit levels q6 hours. Transfuse packed red cells if hemoglobin below 7 3. EGD and colonoscopy were further workup
[2018-07-10 06:16] LABS: Baso % (Auto) 0.4 % (0.0-2.0); Eos # (Auto) 0.1 th/mm3 (0.0-0.4); Eos % (Auto) 1.2 % (0.0-4.0); Hematocrit 22.7 % (39.0-51.0); Hemoglobin 7.5 gm/dL (13.0-17.0); Lymph # (Auto) 0.5 th/mm3 (1.0-4.8); Lymph % (Auto) 7.2 % (9.0-44.0); Mean Corpuscular HGB Conc 33.2 % (32.0-36.0); Mean Corpuscular Hemoglobin 28.8 pg (27.0-34.0); Mean Corpuscular Volume 86.9 fL (80.0-100.0); Mean Platelet Volume 7.8 fL (7.0-11.0); Mono # (Auto) 0.4 th/mm3 (0.0-0.9); Mono % (Auto) 5.4 % (0.0-8.0); Neut # (Auto) 6.1 th/mm3 (1.8-7.7); Neut % (Auto) 85.8 % (16.0-70.0); Platelet Count 259 th/mm3 (150-450); Red Blood Count 2.61 mil/mm3 (4.50-5.90); Red Cell Distribution Width 16.4 % (11.6-17.2); White Blood Count 7.1 th/mm3 (4.0-11.0)
[2018-07-10 06:27] LABS: Potassium 3.6 meq/L (3.5-5.1)
[2018-07-10 06:33] LABS: Calcium 7.1 mg/dL (8.5-10.1); Carbon Dioxide 17.2 meq/L (21.0-32.0)
[2018-07-10 07:05] LABS: Total Protein 6.1 g/dL (6.4-8.2)
[2018-07-10 07:45] LABS: Dimorphic RBC Present; Ovalocytes 1+; Toxic Granulation 2+
[2018-07-10 07:46] LABS: Platelet Estimate Normal (Normal); Platelet Morphology Normal (Normal)
[2018-07-10] MEDS: Ferrous Sulfate 325 MG Tablet PO SCH (08:56)
[2018-07-10] MEDS: metroNIDAZOLE 500 MG Tablet PO SCH ×2 (08:56→21:16)
--- NOTE | 2018-07-10 10:21 | P.PNIM ---
Subjective Interval history: Follow up GI bleed, colonic mass and urinary retention. Patient seen and examined, lying in bed comfortably in the chair this morning. Patient is feeling well, slept well. No chest pain, shortness of breath or pain. Patient states he feels much improved with presence of FC. Urinating well. Electrolytes and kidney function improving. H&H dropped overnight. No presence of bleeding. GI has been updated. Will recheck H&H at noon, patient is very pale this morning. Will likely need to order for 1 unit PRBC. Patient is completely asymptomatic. Will continue to monitor. Tolerating PO intake without any n/v. Afebrile. VSS. Physical Exam Vital signs: Vital Signs 07/09/18 11:03 07/09/18 12:00 07/09/18 13:00 Temperature Pulse Rate 86 98 H 92 H Respiratory Rate 21 24 18 Blood Pressure 134/54 L Pulse Oximetry 07/09/18 14:00 07/09/18 15:00 07/09/18 16:00 Temperature Pulse Rate 82 88 86 Respiratory Rate 19 23 21 Blood Pressure Pulse Oximetry 07/09/18 20:00 07/09/18 20:23 07/10/18 00:01 Temperature 98.7 F Pulse Rate 88 88 96 H Respiratory Rate 30 H 20 28 H Blood Pressure 134/52 L 112/55 L Pulse Oximetry 98 07/10/18 04:10 07/10/18 04:21 07/10/18 05:00 Temperature Pulse Rate 88 86 Respiratory Rate 17 18 Blood Pressure 114/46 L 126/57 L Pulse Oximetry 07/10/18 08:00 Temperature 99.0 F Pulse Rate 82 Respiratory Rate 22 Blood Pressure 136/55 L Pulse Oximetry 99 Intake & Output 07/09/18 07/10/18 07/10/18 18:59 06:59 18:59 Intake Total 1650 / 1650 240 / 240 Output Total 3100 / 3100 1000 / 1000 Balance -1450 / -1450 -760 / -760 Intake: IV 1000 / 1000 NS Inj 1,000 ML @ 100 mls/hr IV 1000 / 1000 .CONT .Q10H [facility] Rx#:[id number] Oral 650 / 650 240 / 240 Output: Urine 1000 / 1000 Urine Amount (Catheter) 3100 / 3100 Indwelling Urethral Catheter 3100 / 3100 Other: Date of Last Bowel Movement 07/09/18 07/09/18 # Bowel Movements 3 Narrative: GENERAL: Well-developed, well-nourished patient in [facility]. SKIN: Warm and dry. No rash. HEAD: Normocephalic. Atraumatic. EYES: Pupils equal and round. No scleral icterus. No injection or drainage. ENT: No nasal bleeding or discharge. Mucous membranes pink and moist. NECK: Supple. Trachea midline. CARDIOVASCULAR: Regular rate and rhythm. S1, S2 noted. No murmur appreciated. RESPIRATORY: No accessory muscle use. Clear to auscultation. Breath sounds equal bilaterally. GASTROINTESTINAL: Abdomen soft, non-tender, round. Normoactive bowel sounds x4. No tenderness. : FC in place with yellow urine. MUSCULOSKELETAL: No obvious deformities. Extremities without clubbing, cyanosis , or edema. NEUROLOGICAL: Awake and alert. No obvious cranial nerve deficits. Motor grossly within normal limits. 5/5 muscle strength in bilateral upper and lower extremities. Normal speech. PSYCHIATRIC: Appropriate mood and affect; insight and judgment normal. - Urinary Catheter Management Indwelling Urethral Catheter Cath placed during this visit: yes Reason for continuing: Other continuation reason Insertion date: 07/09/18 Insertion time: 07:45 Results - Labs CBC & Chem 7: 07/10/18 05:45 07/10/18 05:45 Laboratory Results - last 24 hr 07/06/18 07/09/18 07/09/18 13:04 04:30 15:43 CBC w Diff WBC RBC Hgb Hct MCV MCH MCHC RDW Plt Count MPV Neut % (Auto) Lymph % (Auto) [place] % (Auto) Eos % (Auto) Baso % (Auto) Neut # (Auto) Lymph # (Auto) [place] # (Auto) Eos # (Auto) Baso # (Auto) WBC Differential Diff Scan Differential Comment Toxic Granulation Platelet Estimate Platelet Morphology Dimorphic RBCs Ovalocytes Sodium 143 Potassium 4.0 D Chloride 114 H Carbon Dioxide 18.8 L Anion Gap 10 BUN 33 H Creatinine 2.70 H Estimated GFR 22 L Random Glucose 86 Calcium 7.7 L Prot Corrected Calcium Magnesium 2.2 Total Protein MTS Gel Crossmatch See Detail 07/10/18 07/10/18 05:45 05:45 CBC w Diff Slide review pending WBC 7.1 RBC 2.61 L Hgb 7.5 L Hct 22.7 L MCV 86.9 MCH 28.8 MCHC 33.2 RDW 16.4 Plt Count 259 MPV 7.8 Neut % (Auto) 85.8 H Lymph % (Auto) 7.2 L [place] % (Auto) 5.4 Eos % (Auto) 1.2 Baso % (Auto) 0.4 Neut # (Auto) 6.1 Lymph # (Auto) 0.5 L [place] # (Auto) 0.4 Eos # (Auto) 0.1 Baso # (Auto) 0.0 WBC Differential . Diff Scan Auto diff confirmed Differential Comment . Toxic Granulation 2+ H Platelet Estimate Normal Platelet Morphology Normal Dimorphic RBCs Present H Ovalocytes 1+ H Sodium 143 Potassium 3.6 Chloride 116 H Carbon Dioxide 17.2 L Anion Gap 10 BUN 27 H Creatinine 2.00 H Estimated GFR 32 L Random Glucose 96 Calcium 7.1 L* Prot Corrected Calcium 7.6 L Magnesium Total Protein 6.1 L D MTS Gel Crossmatch Assessment and Plan - Assessment (1) GI bleed Code(s): K92.2 - Gastrointestinal hemorrhage, unspecified Status: Acute (2) Anemia Code(s): D64.9 - Anemia, unspecified Status: Acute - Plan This is an 87-year-old male with: GI bleed, improved. Anemia suspect secondary to history of iron deficiency anemia as well as acute blood loss, improved. History of iron deficiency anemia, receives iron transfusions outpatient. -Recent admission last month for anemia, was given transfusion, and GI saw patient with recommendations for follow up outpatient. -Patient does admit to overall fatigue, and black stools for the past week. Does have a history of iron deficiency anemia, follows with acute care nurse practitioner, Dr. Hughes. -Hemoglobin 5.6/hematocrit 16.8 on presentation. ED physician ordered 2 units PRBC. H&H stable improved initially although has now drop today to 7.5. Will redraw at noon. Will likely need a transfusion. Continue to monitor. Patient is asymptomatic. -Hemoccult positive in ED. Monitor vital signs, have been stable. -Gastroenterology consulted this admission, status post EGD, duodenal ulcer found. Continued on Protonix. Continued on antibiotics Flagyl and Amoxicillin. -Colonoscopy performed with findings of a large mass in his colon. -An abdominal/pelvis CT has been ordered and reviewed showing large cecal mass measuring up to 8.3 cm in diameter most characteristic of a cecal carcinoma possibly with some hazy infiltration of surrounding. Hydronephrosis has also been seen. See below. -General surgeon nutrition instructor, Dr. Geronimo, has been called and updated about patient' s case. Will have patient follow up outpatient for an evaluation. -Palliative care has also been consulted for further input and recommendations. Appreciate. -Supportive care. Acute on chronic kidney disease, improving. Acute hyperkalemia, improved. Acute bilateral hydronephrosis secondary to bladder outlet obstruction, improving. History of BPH -Patient denies any history of kidney disease, he presents with creatinine 1.8, GFR 36, has significantly worsened overnight. -No reports of any urine output overnight, patient complaint of abdominal pain. -A bladder scan was done this am showing >800 ml. A FC was placed and found to have 2 L of urine. Patient feels much improved. Urinating well. -Will continue to monitor intake and output. -Started on Flomax. Continue. -Monitor for any arrhythmias. None overnight. -Will refer outpatient urology when ready to dc. Hypertension, chronic: Hold ADOLPH inhibitor for now. BP labile. Continue to monitor BP trends. Hyperlipidemia, chronic: Will continue home medications. DVT prophylaxis: SCDs. Hold chemical prophylaxis secondary to anemia possible bleed. Discharge Planning: Await clinical improvement, 24-48 hours.
[2018-07-10] MEDS ORDERED: Sodium Chlor 0.9% Inj 250 ML IV.SIG SCH (11:00)
[2018-07-10 12:21] LABS: Hematocrit 22.9 % (39.0-51.0); Hemoglobin 7.4 gm/dL (13.0-17.0)
[2018-07-10 17:52] LABS: Hematocrit 30.9 % (39.0-51.0); Hemoglobin 9.7 gm/dL (13.0-17.0)
--- NOTE | 2018-07-11 07:50 | P.DS ---
Date of admission: 07/06/18 13:19 Primary care physician: Steph Merino MD Anticipated date of discharge: 07/11/18 Brief History from admission: With a known medical history of hypertension, hyperlipidemia and history of GI bleed. Patient states that he got a call from his grandson that his hemoglobin was reportedly low from his primary care and it was advised that he be admitted to the hospital. Patient does state over the past few weeks he has had fatigue and feeling of lightheadedness and dizziness. He was discharged home last month from the hospital and advised to follow-up with GI. A colonoscopy has been scheduled for July 27. Patient does admit to intermittent black stools. He denies any bright red blood at this time or over the course of the past few weeks. He denies any weight loss or significant loss of appetite. He has been eating well. Denies any recent fevers, chills, cough, shortness of breath, dumping, nausea, vomiting, diarrhea or dysuria. He lives at home alone , is able to perform all ADLs per self. Overall is been in generally good health except for the fatigue. Patient update on day of discharge: Follow-up GI bleed, colon mass, urinary retention. Patient seen and examined, sitting up in bed comfortably in no apparent distress. He states he feels much improved. ER to go home. Tolerating p.o. intake without any nausea or vomiting. Received 1 unit of PRBCs overnight, H&H stable. Bloody bowel movements have slowed down. Patient has an appointment with Dr. Geronimo, general surgery tomorrow for colon mass. GI is cleared for discharge. Patient continued with Garcia catheter, had a bout of urinary retention over 2 L. Will discharge home with recommendations to follow up and referred to urologist. Patient spoke to extensively about plan. He agrees to follow-up and plan. DS: Diagnosis - Discharge Diagnosis (1) GI bleed Status: Acute (2) Anemia Status: Acute DS: Medications - Discharge Medications Prescriptions: amoxicillin 875 mg PO Q12HR 8 Days tab metronidazole 500 mg PO BID 8 Days #16 tab pantoprazole 40 mg PO BID #24 tab DS: Summary Hospital Course: This is an 87-year-old male who presented with severe anemia secondary to history of iron deficiency anemia as well as acute blood loss via GI tract. Patient does have a history of iron deficiency anemia, receives iron transfusions outpatient. He also had a recent admission last month for anemia, was given transfusion, and GI saw patient with recommendations for follow up outpatient. Patient does admit to overall fatigue, and black stools for the past week. Hemoglobin 5.6/hematocrit 16.8 on presentation. ED physician ordered 2 units PRBC. H&H stable improved initially although did drop to 7.5 on day prior to discharge, he did receive an additional 1 unit PRBC. On day of discharge his hemoglobin has been stable at 9.7. Gastroenterology consulted during admission, status post EGD, duodenal ulcer found. Continued on Protonix. Continued on antibiotics Flagyl and Amoxicillin. Colonoscopy performed with findings of a large mass in his colon. An abdominal/pelvis CT has been ordered and reviewed showing large cecal mass measuring up to 8.3 cm in diameter most characteristic of a cecal carcinoma possibly with some hazy infiltration of surrounding. General surgeon machine precision etcher, Dr. Geronimo, has been called and updated about patient's case. Will have patient follow up outpatient for an evaluation on 07/12/18, patient has appointment. Palliative care has also been consulted for further input and recommendations. Appreciate. Patient also developed acute bilateral hydronephrosis secondary to bladder outlet obstruction and possible large prostate. He does have a history of chronic kidney disease which his kidney function severely declined during hospitalization at one point. He also had acute hyperkalemia as well, was found that patient was retaining up to 2 L of urine. A Garcia catheter was placed and Flomax was started. Patient was discharged home with Garcia catheter encouraged to follow-up with a urologist in the outpatient setting. Denies any prior urinary retention, does admit to a history of BPH. Labs were stabilized on day of discharge and trending downward. Patient has a history of hypertension hyperlipidemia which are stable during hospitalization. Patient was stabilized on day of discharge encouraged follow-up with PCP, gastroenterology, general surgery and urology. DC home Prescriptions as written Cardiac diet as tolerated Activity as tolerated Follow-up PCP, gastroenterology, general surgery and urology. - Time Spent with Patient Total time spent providing and/or coordinating discharge services: Greater than 30 minutes - Quality: VTE Deep Vein Thrombosis/Pulmonary Embolism Present on Admission: No Exam Vital signs: Vital Signs 07/10/18 08:00 07/10/18 12:00 07/10/18 14:24 Temperature 99.0 F 98.8 F 98.7 F Pulse Rate 82 106 H 83 Respiratory Rate 22 27 H 29 H Blood Pressure 136/55 L 136/56 L 117/61 Pulse Oximetry 99 98 07/10/18 14:40 07/10/18 16:00 07/10/18 17:44 Temperature 99.0 F 97.2 F L 98.8 F Pulse Rate 80 78 Respiratory Rate 20 23 17 Blood Pressure 122/47 L 130/77 132/29 L Pulse Oximetry 100 96 100 07/10/18 20:00 07/11/18 00:00 07/11/18 04:00 Temperature 98.6 F Pulse Rate 79 80 74 Respiratory Rate 18 19 17 Blood Pressure 136/53 L 111/43 L 140/63 Pulse Oximetry 07/11/18 05:00 Temperature Pulse Rate 76 Respiratory Rate 17 Blood Pressure 107/46 L Pulse Oximetry Intake & Output 07/10/18 07/11/18 07/11/18 18:59 06:59 18:59 Intake Total 1460 / 1460 Output Total 1002 / 1002 750 / 750 Balance 458 / 458 -750 / -750 Weight 64.1 kg 65.8 kg Intake: IV 100 / 100 NS Inj 250 ML @ 15 mls/hr IV. 100 / 100 SIG ONCE [facility] Rx#:[id number] Oral 960 / 960 Intake (Blood Product) Amt 400 / 400 Rbc As-3 Leukoreduced Unit 400 / 400 [id number] Output: Urine 200 / 200 Stool 2 / 2 Urine Amount (Catheter) 800 / 800 750 / 750 Indwelling Urethral Catheter 800 / 800 750 / 750 Other: Date of Last Bowel Movement 07/10/18 07/11/18 # Bowel Movements 2 Narrative: GENERAL: Well-developed, well-nourished patient in [facility]. SKIN: Warm and dry. No rash. HEAD: Normocephalic. Atraumatic. EYES: Pupils equal and round. No scleral icterus. No injection or drainage. ENT: No nasal bleeding or discharge. Mucous membranes pink and moist. NECK: Supple. Trachea midline. CARDIOVASCULAR: Regular rate and rhythm. S1, S2 noted. No murmur appreciated. RESPIRATORY: No accessory muscle use. Clear to auscultation. Breath sounds equal bilaterally. GASTROINTESTINAL: Abdomen soft, non-tender, round. Normoactive bowel sounds x4. No tenderness. : FC in place with yellow urine. MUSCULOSKELETAL: No obvious deformities. Extremities without clubbing, cyanosis , or edema. NEUROLOGICAL: Awake and alert. No obvious cranial nerve deficits. Motor grossly within normal limits. 5/5 muscle strength in bilateral upper and lower extremities. Normal speech. PSYCHIATRIC: Appropriate mood and affect; insight and judgment normal. Results Procedures completed during hospitalization: See above. Labs on day of discharge: Labs from last 24 hours 07/10/18 07/10/18 07/10/18 17:02 12:12 10:47 Hgb 9.7 L D 7.4 L Hct 30.9 L 22.9 L Blood Type A Positive Antibody Screen Negative MTS Gel Crossmatch See Detail Bld Prod Order Comment 07/06/18 13:04 Hgb Hct Blood Type Antibody Screen MTS Gel Crossmatch See Detail Bld Prod Order Comment - Impressions ITS Impressions Chest X-Ray 07/06/18 12:12 CONCLUSION: Stable chest appearance. Abdomen/Pelvis CT 07/08/18 00:00 CONCLUSION: 1. 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 2. Moderate bilateral hydronephrosis above a distended bladder with left sided bladder diverticulum. Findings may be related to enlarged prostate and bladder outlet obstruction. 3. Multiple circumscribed hepatic lesions similar to a CT chest from September, probably complex cysts. Discharge Plan - Discharge Disposition Patient Disposition: /Home Health Service - Discharge Condition Condition: Stable - Discharge Order Discharge Orders: Discharge Order (Routine); Ordered 07/11/18 Ordered By: Vita De La Cruz - Discharge Details Anticipated Discharge Date: 07/11/18 Discharge Comment: Have patient follow up with Dr. Juanpablo lua for Thursday on 07/13/18. - Physicians Team Primary Care Provider: Steph Merino Attending Provider: Clare Calderon Other Providers: Amauri Andres MD ; Екатерина Willams ; Luisa Gonzalez MD
[2018-07-11] MEDS: metroNIDAZOLE 500 MG Tablet PO SCH (08:39)
[2018-07-11] MEDS: Ferrous Sulfate 325 MG Tablet PO SCH (08:39)
[2018-07-11 09:14] VITALS: PULSE 90
[2018-07-11 09:22] VITALS: BP 131/55; RESP 18; TEMP 98.7; O2SAT 98
== END 2018-07-11 11:20 | disposition home health service (06) ==
LOC: PHED 11:40 → PHEDA 11:40 → PHICU 15:09
PROVIDERS: ADMIT Internal Medicine; ATTEND Internal Medicine
PROC: PANENDO (2018-07-07 12:20)
PROC: COLONOS (2018-07-08 16:21)

== ENCOUNTER 2018-08-06 12:04 | Observation (INO) ==
--- NOTE | 2018-08-06 13:05 | ED ---
HPI General Chief complaint: Weakness Stated complaint: weakness Time Seen by Provider: 08/06/18 12:13 Source: patient, family and old records reviewed Mode of arrival: ambulatory Limitations: no limitations History of Present Illness HPI Narrative: The patient is 87 years old and arrives with complaints of generalized weakness and forgetfulness and inability to care for himself. He underwent colon surgery in the beginning of July and was discharged from [facility] on the sixth. He was seen here yesterday and diagnosed with a urinary tract infection. He has urethral Garcia catheter has had it since the middle of June. He is here with a grandson due to concern for inability to care for self. The patient is aware that he has a urinary tract infection however is unsure if he obtained his antibiotics yesterday. Related Data Home Medications Medication Instructions Recorded Confirmed atorvastatin 10 mg PO EVERY OTHER DAY 06/11/18 08/06/18 levothyroxine 25 mcg PO DAILY 06/11/18 08/06/18 lisinopril-hydrochlorothiazide 1 tab PO DAILY 06/11/18 08/06/18 ferrous sulfate [iron] 325 mg PO DAILY 07/06/18 08/06/18 multivitamin [Multiple Vitamins] 1 tab PO DAILY 08/05/18 08/06/18 tamsulosin 0.4 mg PO DAILY 08/05/18 08/06/18 Previous Rx's Medication Instructions Recorded pantoprazole 40 mg PO BID #24 tab 07/08/18 cephalexin [Keflex] 500 mg PO Q8H 7 Days #21 cap 08/05/18 Allergies Allergy/AdvReac Type Severity Reaction Status Date / Time No Known Allergies Allergy Verified 08/06/18 12:06 Review of Systems ROS: all other systems reviewed are negative PMFSH Family History Family History Son Diabetes Hypertension Social History Social History Substance History: No History of Abuse Second Hand Smoke Exposure: No Smoking Status: Unknown if ever smoked How Often Do You Have a Drink Containing Alcohol: Never Immunization History Tetanus Immunization: Unsure Exam Narrative Exam Narrative: GENERAL: 87-year-old male AO x3 well-nourished well-developed no acute distress SKIN: Focused skin assessment warm/dry. HEAD: Atraumatic. Normocephalic. EYES: Pupils equal and round. No scleral icterus. No injection or drainage. ENT: No nasal bleeding or discharge. Mucous membranes pink and moist. NECK: Trachea midline. No JVD. CARDIOVASCULAR: Regular rate and rhythm. No murmur appreciated. RESPIRATORY: No accessory muscle use. Clear to auscultation. Breath sounds equal bilaterally. GASTROINTESTINAL: Abdomen soft, non-tender, nondistended. Hepatic and splenic margins not palpable. MUSCULOSKELETAL: No obvious deformities. No clubbing. No cyanosis. No edema. NEUROLOGICAL: A and O x3. Cranial nerves normal. Recent memory is somewhat impaired, for example the patient does not know that he is currently taking antibiotics for UTI. PSYCHIATRIC: Appropriate mood and affect; insight and judgment normal. Course Initial Documented Vital Signs Temperature 97.5 F L 08/06/18 12:05 Pulse Rate 96 H 08/06/18 12:05 Respiratory Rate 16 08/06/18 12:05 Blood Pressure 142/68 H 08/06/18 12:05 Pulse Oximetry 97 08/06/18 12:05 Last Documented Vital Signs Temperature 97.5 F L 08/06/18 12:05 Pulse Rate 86 08/06/18 12:24 Respiratory Rate 18 08/06/18 12:24 Blood Pressure 102/73 08/06/18 12:24 Pulse Oximetry 97 08/06/18 12:24 Medical Decision Making MDM Narrative Medical decision making narrative: The patient is 87 years old and was seen here just yesterday and diagnosed with a UTI. The grandson called the primary care provider today and describe the events of the evening which included the patient's on awareness of the need to take antibiotics and he was advised to come to the ER for admission. Patient has until June approximately been lucid and able to care for himself however appears unable to do so. Case management called [facility] who advised a stat physical therapy evaluation to assess for ambulation. Physical therapy was consulted and we are waiting to hear the results. Physical therapist reports decline in ambulatory status since June with patient requiring assistance with walker. Paperwork sent to inpatient rehab facility. Keflex script written by hand by undersigned. If patient is approved ambulance transport will be arranged from here. There has been no response from [facility]. Case management has informed me that the patient is unlikely to be placed today. The patient is not fit for discharge home due to inability to ambulate and also due to inability to care for self. Call placed to hospitalist service at 357pm. d/w Dr Green for [facility] who will admit the patient. Medical Screen Exam Complete: Yes Emergency Medical Condition: Yes Discharge Plan Discharge Disposition Patient Disposition: 30 Still Patient Discharge Condition Condition: Stable Discharge Details Diagnosis: Weakness, Complicated urinary tract infection, Failure to thrive Physicians Team ED Provider: Noe Garrett Primary Care Provider: Baljit Sheppard Rxs /Orders / Referrals /Forms Prescriptions: No Action atorvastatin 10 mg Tablet 10 mg PO EVERY OTHER DAY RF: 0 lisinopril-hydrochlorothiazide 20-12.5 mg Tablet 1 tab PO DAILY RF: 0 levothyroxine 25 mcg Tablet 25 mcg PO DAILY RF: 0 ferrous sulfate [iron] 325 mg (65 mg iron) Tablet 325 mg PO DAILY RF: 0 pantoprazole 40 mg Tablet,Delayed Release (Dr/Ec) 40 mg PO BID Qty: 24 RF: 0 multivitamin [Multiple Vitamins] Tablet 1 tab PO DAILY RF: 0 tamsulosin 0.4 mg Capsule 0.4 mg PO DAILY RF: 0 cephalexin [Keflex] 500 mg capsule 500 mg PO Q8H 7 Days Qty: 21 RF: 0 Status ED Status: With Doctor
[2018-08-06] MEDS ORDERED: Lidocaine 2%/Epinephrine 1:100,000 30 ML MDV INFILTRATN ONE (13:18)
[2018-08-06] MEDS ORDERED: Bisacodyl 10 MG Supp RECTAL PRN (17:13)
[2018-08-06] MEDS ORDERED: Acetaminophen 325 MG Tablet PO PRN (17:13)
--- NOTE | 2018-08-06 17:16 | P.HPIM ---
History of Present Illness Chief Complaint: Unable to take care of myself History of Present Illness: Patient is a pleasant 87-year-old male with past medical history of hypertension, hypothyroidism, BPH, colon cancer status post colectomy July 2018 and hyperlipidemia presenting to emergency department at the request of family member (grandmassiel Portillo) due to concerns that patient has been unable to care for himself at his residence where he lives alone. Patient lives in a small home with 3-4 steps to enter the house and as per grandson as well as patient he has been experiencing difficulty caring for himself progressively over the last few months PRIOR to presentation. Grandson expressed concerns that his grandfather has not been taking care of himself and not eating, drinking, or taking his prescribed medications from his primary care physician Dr. Harrington ( medicare in [place]). Patient was found at home very forgetful and was taken to the emergency department for help. No recent falls reported at home and patient walks around house holding onto the moe and other items. Has a walker but doesnt use it. On review of systems patient denied fever, chills, foul-smelling urine, dysuria , back pain, new visual changes, new hearing changes, headache, palpitations, nausea, vomiting, diarrhea, abdominal pain, or other issues. Patient endorse generalized weakness. As per grandson his grandfather has been a progressive decline since surgery for recently diagnosed colon cancer treated with colectomy and no chemotherapy. Inpatient Certification Inpatient Certification: I certify that the inpatient services were ordered in accordance with Medicare regulations governing the order. This includes certification that hospital inpatient services are reasonable and necessary and in the case of services not specified as inpatient-only under 42 CFR 419.22(n), that they are appropriately provided as inpatient services in accordance to with the 2-midnight benchmark under 43 CFR 412.3(e) Estimated Total Length of Stay (Days): 1 Plans for Post Hospital Care: SNF Review of Systems Review of Systems: all other systems reviewed are negative [facility] Medical History Medical History Chronic kidney disease (Acute) Depression (Acute) Diabetes (Acute) Diverticulosis (Acute) Glaucoma (Acute) History of high cholesterol (Acute) Hypertension (Acute) Hypothyroid (Acute) Iron deficiency anemia (Acute) Surgical History Surgical History Hx of hernia repair (Acute) Family History Family History Son Diabetes Hypertension Social History Social History Substance History: No History of Abuse Second Hand Smoke Exposure: No Smoking Status: Unknown if ever smoked How Often Do You Have a Drink Containing Alcohol: Never Immunization History Tetanus Immunization: Unsure Medications and Allergies Allergies Allergy/AdvReac Type Severity Reaction Status Date / Time No Known Allergies Allergy Verified 08/06/18 12:06 Home Medications Medication Instructions Recorded Confirmed Type atorvastatin 10 mg PO EVERY OTHER DAY 06/11/18 08/06/18 History levothyroxine 25 mcg PO DAILY 06/11/18 08/06/18 History lisinopril-hydrochlorothiazide 1 tab PO DAILY 06/11/18 08/06/18 History ferrous sulfate [iron] 325 mg PO DAILY 07/06/18 08/06/18 History multivitamin [Multiple Vitamins] 1 tab PO DAILY 08/05/18 08/06/18 History tamsulosin 0.4 mg PO DAILY 08/05/18 08/06/18 History Physical Exam Vital signs: Last Vital Signs Temp 97.5 F L 08/06/18 12:05 Pulse 77 08/06/18 16:09 Resp 20 08/06/18 16:09 BP 136/54 L 08/06/18 16:09 Pulse Ox 97 08/06/18 12:24 Intake & Output 08/04/18 08/05/18 08/06/18 08/07/18 06:59 06:59 06:59 06:59 Output Total 200 / 200 Balance -200 / -200 Weight 58.4 kg General: No acute distress, conversational HEENT: EOMI, PERRLA Cardiovascular: S1/S2. No murmurs rubs or gallops appreciated on physical exam Respiratory: Clear to auscultation anteriorly and posteriorly without wheezing, rales, or rhonchi. No intercostal muscle use Gastroenterology: 7 cm vertical midline surgical scar appears clean, dry, and intact. Soft, nontender, nondistended, no guarding or rebound appreciated. Positive bowel sounds Neurology:: Cranial nerves II through XII intact without focal deficits. Sensation intact upper and lower extremity bilaterally. No facial droop. No slurred speech. Power 5/5 throughout. No tremor noted Extremity: No lower extremity edema, no calf tenderness. 2+ radial and dorsalis pedis pulse appreciated bilaterally. Results Labs Labs: Lab work reviewed from 08/05 within 24 hours Caprini VTE Risk Assessment Caprini VTE Risk Assessment: Moderate/High Risk (score >= 2) Caprini Risk Assessment Model: Point Value = 1 Point Value = 2 Point Value = 3 Point Value = 5 Age 41-60 Minor surgery BMI > 25 kg/m2 Swollen legs Varicose veins or History of unexplained or recurrent spontaneous Oral contraceptives or hormone replacement Sepsis (< 1 month) Serious lung disease, including pneumonia (< 1 month) Abnormal pulmonary function Acute myocardial infarction Congestive heart failure (< 1 month) History of inflammatory bowel disease Medical patient at bed rest Age 61-74 Arthroscopic surgery Major open surgery (> 45 min) Laparoscopic surgery (> 45 min) Malignancy Confined to bed (> 72 hours) Immobilizing plaster cast Central venous access Age >= 75 History of VTE Family history of VTE Factor V Leiden Prothrombin 60021M Lupus anticoagulant Anticardiolipin antibodies Elevated serum homocysteine Heparin-induced thrombocytopenia Other congenital or acquired thrombophilia Stroke (< 1 month) Elective arthroplasty Hip, pelvis, or leg fracture Acute spinal cord injury (< 1 month) Prophylaxis Regimen: Total Risk Factor Score Risk Level Prophylaxis Regimen 0-1 Low Early ambulation 2 Moderate Order ONE of the following: *Sequential Compression Device (SCD) *Heparin 5000 units SQ BID 3-4 Higher Order ONE of the following medications: *Heparin 5000 units SQ TID *Enoxaparin/Lovenox 40 mg SQ daily (WT < 150 kg, CrCl > 30 mL/min) *Enoxaparin/Lovenox 30 mg SQ daily (WT < 150 kg, CrCl > 10-29 mL/min) *Enoxaparin/Lovenox 30 mg SQ BID (WT < 150 kg, CrCl > 30 mL/min) AND/OR *Sequential Compression Device (SCD) 5 or more Highest Order ONE of the following medications: *Heparin 5000 units SQ TID (Preferred with Epidurals) *Enoxaparin/Lovenox 40 mg SQ daily (WT < 150 kg, CrCl > 30 mL/min) *Enoxaparin/Lovenox 30 mg SQ daily (WT < 150 kg, CrCl > 10-29 mL/min) *Enoxaparin/Lovenox 30 mg SQ BID (WT < 150 kg, CrCl > 30 mL/min) AND *Sequential Compression Device (SCD) Assessment and Plan Plan Patient CARE: Failure to thrive Patient to be transitioned to skilled facility on 08/07 Physical therapy recommendations appreciated via EMR on 08/06. Infectious disease: Suspected urinary tract infection -Urine culture positive for gram-negative rods. Transition to ciprofloxacin for 3 days upon discharge. Change Garcia catheter - s/p 1 dose of ceftriaxone in ED - Official UCx species PENDING Cardiology: Hypertension/hyperlipidemia Continue simvastatin 10 mg every other day Continue blood pressure medications as prescribed ( lisinopril/hctz 20/12.5), etc.. Endocrinology: Hypothyroidism Continue levothyroxine 25 mcg taken in morning prior to other medications to prevent abnormal absorption. Gastroenterology: Colon cancer status post colectomy Outpatient follow-up CODE STATUS: Full code DVT prophylaxis: Lovenox subcu given history of malignancy Diet: Regular Disposition: Medical service. Anticipated discharge within 24 hours. Plan discussed with lawson Montelongo.
[2018-08-06] MEDS ORDERED: Non-Formulary Drug (Lisinopril-Hydrochlorothiazide [Lisinopril-Hydrochlorothiazide] 1 TAB) PO SCH (17:45)
[2018-08-06] MEDS ORDERED: Heparin - SQ 10,000 UNITS/ML Vial SQ SCH (18:00)
[2018-08-06] MEDS: Enoxaparin Inj 40 MG/0.4 ML Syringe SQ SCH (18:23)
[2018-08-06] MEDS: Ferrous Sulfate 325 MG Tablet PO SCH (18:24)
[2018-08-06] MEDS: Senna/Docusate Sodium 8.6/50 MG Tablet PO SCH (22:00)
[2018-08-06] MEDS: Ciprofloxacin 250 MG Tablet PO SCH (22:01)
[2018-08-07] MEDS: Ciprofloxacin 250 MG Tablet PO SCH ×2 (08:46→20:45)
[2018-08-07] MEDS: Ferrous Sulfate 325 MG Tablet PO SCH (08:47)
[2018-08-07] MEDS: Senna/Docusate Sodium 8.6/50 MG Tablet PO SCH ×2 (08:47→20:45)
[2018-08-07] MEDS: Lisinopril 20 MG Tablet PO SCH (08:50)
[2018-08-07] MEDS: Enoxaparin Inj 40 MG/0.4 ML Syringe SQ SCH (08:51)
--- NOTE | 2018-08-07 09:34 | P.PNIM ---
Subjective Interval history: Follow up failure to thrive and UTI. Patient seen and examined, sitting up in chair awake and alert. He is eager to go to rehab, awaiting authorization from [facility]. Overall doing well, denies any acute complaints. Awaiting urine cultures. Ate breakfast without any abdominal pain, nausea or vomiting. Physical Exam Vital signs: Vital Signs 08/06/18 12:05 08/06/18 12:24 08/06/18 16:09 Temperature 97.5 F L Pulse Rate 96 H 86 77 Respiratory Rate 16 18 20 Blood Pressure 142/68 H 102/73 136/54 L Pulse Oximetry 97 97 08/06/18 20:00 08/07/18 00:00 08/07/18 00:44 Temperature 98 F 97.6 F Pulse Rate 75 73 Respiratory Rate 20 20 18 Blood Pressure 144/65 H 122/60 Pulse Oximetry 99 97 08/07/18 08:00 Temperature 97.7 F Pulse Rate 84 Respiratory Rate 18 Blood Pressure 113/54 L Pulse Oximetry Intake & Output 08/06/18 08/07/18 08/07/18 18:59 06:59 18:59 Intake Total 340 / 340 0 / 0 Output Total 500 / 500 500 / 500 Balance -160 / -160 -500 / -500 Weight 58.4 kg 58.5 kg Intake: IV 100 / 100 Rocephin Inj 1,000 MG In NS Inj 100 / 100 100 ML @ 200 mls/hr IV.SIG ONCE ONE Rx#:[id number] Oral 240 / 240 0 / 0 Output: Urine 300 / 300 200 / 200 Urine Amount (Catheter) 200 / 200 300 / 300 Indwelling Urethral Catheter 200 / 200 300 / 300 Other: Date of Last Bowel Movement 08/06/18 Narrative: GENERAL: Well-developed, elderly frail male patient in [facility]. SKIN: Warm and dry. No rash. HEAD: Normocephalic. Atraumatic. EYES: Pupils equal and round. No scleral icterus. No injection or drainage. ENT: No nasal bleeding or discharge. Mucous membranes pink and moist. NECK: Supple. Trachea midline. CARDIOVASCULAR: Regular rate and rhythm. S1, S2 noted. RESPIRATORY: No accessory muscle use. Clear to auscultation. Breath sounds equal bilaterally. GASTROINTESTINAL: Abdomen soft, non-tender, nondistended. Normoactive bowel sounds x4. Midline abdominal post surgical incision clean and intact, healing. : Garcia cath in place, yellow urine with sediment. MUSCULOSKELETAL: No obvious deformities. Extremities without clubbing, cyanosis , or edema. NEUROLOGICAL: Awake and alert. No obvious cranial nerve deficits. Motor grossly within normal limits. 5/5 muscle strength in bilateral upper and lower extremities. Normal speech. PSYCHIATRIC: Appropriate mood and affect; insight and judgment normal. - Urinary Catheter Management Indwelling Urethral Catheter Cath placed during this visit: yes, but has since been removed by the nurse Reason for continuing: Acute urinary retention Insertion date: 08/06/18 Insertion time: 22:25 Removal date: 08/06/18 Removal time: 22:15 Assessment and Plan - Assessment (1) Complicated urinary tract infection Code(s): N39.0 - Urinary tract infection, site not specified Status: Acute (2) Failure to thrive Status: Acute (3) Hypertension Code(s): I10 - Essential (primary) hypertension Status: Acute (4) Weakness Code(s): R53.1 - Weakness Status: Acute - Plan This is an 87-year-old male patient with: Failure to thrive Patient to be transitioned to [facility] when authorization rec'd from [employer]. CM assisting. Physical therapy recommendations appreciated via EMR on 08/06. Continue PT. Abnormal UA suspect urinary tract infection -Urine culture positive for gram-negative rods. -Transition to ciprofloxacin for 3 days upon discharge. Garcia catheter changed. -s/p 1 dose of ceftriaxone in ED -UCx species pending. Follow. Hypertension Hyperlipidemia Continue simvastatin 10 mg every other day Continue blood pressure medications as prescribed. Hypothyroidism -Continue levothyroxine 25 mcg taken in morning prior to other medications to prevent abnormal absorption. Colon cancer status post colectomy Outpatient follow-up. Stable. CODE STATUS: Full code DVT prophylaxis: Lovenox subcu given history of malignancy. Diet: Regular Disposition: Medical service. Anticipated discharge within 24 hours. Yann Barakatin. . Discharge Planning: Awaiting on authorization from [employer].
--- NOTE | 2018-08-07 14:53 | ECG ---
Date Performed: 08/06/2018 Time Performed: 14:07:30 PTAGE: 87 years EKG: Sinus rhythm WITH FREQUENT SUPRAVENTRICULAR PREMATURE COMPLEXES POSSIBLE RIGHT VENTRICULAR CONDUCTION DELAY ABNOR MAL RHYTHM ECG PREVIOUS TRACING : 08/05/2018 08.32 Since the previous tracing, no significant change noted DOCTOR: Tobi Marmolejo Interpretating Date/Time 08/07/2018 14:53:18
[2018-08-08] MEDS: Senna/Docusate Sodium 8.6/50 MG Tablet PO SCH ×3 (08:57→20:58)
[2018-08-08] MEDS: Lisinopril 20 MG Tablet PO SCH (08:57)
[2018-08-08] MEDS: Ferrous Sulfate 325 MG Tablet PO SCH (08:57)
[2018-08-08] MEDS: Ciprofloxacin 250 MG Tablet PO SCH ×2 (08:57→20:53)
[2018-08-08] MEDS: Enoxaparin Inj 40 MG/0.4 ML Syringe SQ SCH (09:00)
--- NOTE | 2018-08-08 09:11 | P.PNIM ---
Subjective Interval history: Follow up failure to thrive and UTI. Patient seen and examined, lying in bed comfortably no apparent distress. He does state that he is anxious to get to rehab. He seems a little down, states he is just depressed being in the hospital. Denies any new acute complaints. He is eating well without any abdominal pain nausea or vomiting. Awaiting authorization from [facility]. Vital signs stable. Afebrile. Physical Exam Vital signs: Vital Signs 08/07/18 12:00 08/07/18 16:00 08/07/18 20:00 Temperature 97.9 F 99.4 F 99.4 F Pulse Rate 99 H 77 77 Respiratory Rate 16 16 18 Blood Pressure 125/58 L 123/58 L 132/62 Pulse Oximetry 98 96 95 08/08/18 00:00 08/08/18 08:00 Temperature 97.7 F 98.3 F Pulse Rate 79 73 Respiratory Rate 20 17 Blood Pressure 116/58 L 127/57 L Pulse Oximetry 95 97 Intake & Output 08/07/18 08/08/18 08/08/18 18:59 06:59 18:59 Intake Total 240 / 240 Output Total 350 / 350 500 / 500 Balance -350 / -350 -260 / -260 Weight 59 kg Intake: Oral 240 / 240 Output: Urine 350 / 350 500 / 500 Other: Date of Last Bowel Movement 08/07/18 08/07/18 Narrative: GENERAL: Well-developed, elderly frail male patient in [facility]. SKIN: Warm and dry. No rash. HEAD: Normocephalic. Atraumatic. EYES: Pupils equal and round. No scleral icterus. No injection or drainage. ENT: No nasal bleeding or discharge. Mucous membranes pink and moist. NECK: Supple. Trachea midline. CARDIOVASCULAR: Regular rate and rhythm. S1, S2 noted. RESPIRATORY: No accessory muscle use. Clear to auscultation. Breath sounds equal bilaterally. GASTROINTESTINAL: Abdomen soft, non-tender, nondistended. Normoactive bowel sounds x4. Midline abdominal post surgical incision clean and intact, healing. : Garcia cath in place, yellow urine with sediment. MUSCULOSKELETAL: No obvious deformities. Extremities without clubbing, cyanosis , or edema. NEUROLOGICAL: Awake and alert. No obvious cranial nerve deficits. Motor grossly within normal limits. 5/5 muscle strength in bilateral upper and lower extremities. Normal speech. PSYCHIATRIC: Appropriate mood and affect; insight and judgment normal. - Urinary Catheter Management Indwelling Urethral Catheter Cath placed during this visit: yes, but has since been removed by the nurse Reason for continuing: Chronic Urinary Retention Insertion date: 08/07/18 Insertion time: 22:25 Removal date: 08/06/18 Removal time: 22:15 Assessment and Plan - Assessment (1) Complicated urinary tract infection Code(s): N39.0 - Urinary tract infection, site not specified Status: Acute (2) Failure to thrive Status: Acute (3) Hypertension Code(s): I10 - Essential (primary) hypertension Status: Acute (4) Weakness Code(s): R53.1 - Weakness Status: Acute - Plan This is an 87-year-old male patient with: Failure to thrive Patient to be transitioned to [facility] when authorization rec'd from [employer]. CM assisting. Physical therapy recommendations appreciated via EMR on 08/06. Continue PT. Urinary tract infection, E. coli -Urine culture positive for E. coli -Continue ciprofloxacin. Garcia catheter changed. Hypertension Hyperlipidemia Continue simvastatin 10 mg every other day Continue blood pressure medications as prescribed. Hypothyroidism -Continue levothyroxine 25 mcg taken in morning prior to other medications to prevent abnormal absorption. Colon cancer status post colectomy Outpatient follow-up. Stable. CODE STATUS: Full code DVT prophylaxis: Lovenox subcu given history of malignancy. Diet: Regular Grandson Rgeinald. . Discharge Planning: Awaiting on authorization from [employer].
[2018-08-08] MEDS ORDERED: Melatonin 5 MG Tablet PO ONE (23:00)
--- NOTE | 2018-08-09 08:09 | P.PNIM ---
Subjective Interval history: Follow up failure to thrive, UTI. Patient seen and examined ambulating in room with no weakness. Denies any acute complaints overnight. Eating well. Awaiting authorization for SNF. Physical Exam Vital signs: Vital Signs 08/08/18 12:00 08/08/18 16:00 08/08/18 20:00 Temperature 98.0 F 98.2 F 98.2 F Pulse Rate 84 79 76 Respiratory Rate 16 16 20 Blood Pressure 115/76 138/61 119/59 L Pulse Oximetry 96 93 L 94 L 08/09/18 00:00 Temperature 97.2 F L Pulse Rate 72 Respiratory Rate 20 Blood Pressure 125/58 L Pulse Oximetry 95 Intake & Output 08/08/18 08/09/18 08/09/18 18:59 06:59 18:59 Intake Total 840 / 840 120 / 120 Output Total 650 / 650 600 / 600 Balance 190 / 190 -480 / -480 Weight 59 kg Intake: Oral 840 / 840 120 / 120 Output: Urine 650 / 650 600 / 600 Other: Date of Last Bowel Movement 08/08/18 08/08/18 # Bowel Movements 1 Narrative: GENERAL: Well-developed, elderly frail male patient in [facility]. SKIN: Warm and dry. No rash. HEAD: Normocephalic. Atraumatic. EYES: Pupils equal and round. No scleral icterus. No injection or drainage. ENT: No nasal bleeding or discharge. Mucous membranes pink and moist. NECK: Supple. Trachea midline. CARDIOVASCULAR: Regular rate and rhythm. S1, S2 noted. RESPIRATORY: No accessory muscle use. Clear to auscultation. Breath sounds equal bilaterally. GASTROINTESTINAL: Abdomen soft, non-tender, nondistended. Normoactive bowel sounds x4. Midline abdominal post surgical incision clean and intact, healing. : Garcia cath in place, yellow urine with sediment. MUSCULOSKELETAL: No obvious deformities. Extremities without clubbing, cyanosis , or edema. NEUROLOGICAL: Awake and alert. No obvious cranial nerve deficits. Motor grossly within normal limits. 5/5 muscle strength in bilateral upper and lower extremities. Normal speech. PSYCHIATRIC: Appropriate mood and affect; insight and judgment normal. - Urinary Catheter Management Indwelling Urethral Catheter Cath placed during this visit: yes, but has since been removed by the nurse Reason for continuing: Chronic Urinary Retention Insertion date: 08/07/18 Insertion time: 22:25 Removal date: 08/06/18 Removal time: 22:15 Assessment and Plan - Assessment (1) Complicated urinary tract infection Code(s): N39.0 - Urinary tract infection, site not specified Status: Acute (2) Failure to thrive Status: Acute (3) Hypertension Code(s): I10 - Essential (primary) hypertension Status: Acute (4) Weakness Code(s): R53.1 - Weakness Status: Acute - Plan This is an 87-year-old male patient with: Failure to thrive Patient to be transitioned to [facility] when authorization rec'd from [employer]. CM assisting. Physical therapy recommendations appreciated. Continue PT efforts. Urinary tract infection, E. coli -Urine culture positive for E. coli -Continue ciprofloxacin. Garcia catheter changed. Hypertension Hyperlipidemia Continue simvastatin 10 mg every other day Continue blood pressure medications as prescribed. Hypothyroidism -Continue levothyroxine 25 mcg taken in morning prior to other medications to prevent abnormal absorption. Colon cancer status post colectomy Outpatient follow-up. Stable. CODE STATUS: Full code DVT prophylaxis: Lovenox subcu given history of malignancy. Diet: Regular Grandson Reginald. . Discharge Planning: Awaiting on authorization from [employer].
[2018-08-09] MEDS: Lisinopril 20 MG Tablet PO SCH (08:54)
[2018-08-09] MEDS: Enoxaparin Inj 40 MG/0.4 ML Syringe SQ SCH (08:54)
[2018-08-09] MEDS: Ferrous Sulfate 325 MG Tablet PO SCH (08:54)
[2018-08-09] MEDS: Ciprofloxacin 250 MG Tablet PO SCH (08:54)
[2018-08-09] MEDS: Senna/Docusate Sodium 8.6/50 MG Tablet PO SCH ×2 (09:10→20:26)
--- NOTE | 2018-08-09 14:32 | P.DS ---
Date of admission: 08/06/18 16:11 Primary care physician: Baljit Sheppard MD Anticipated date of discharge: 08/09/18 Brief History from admission: Patient is a pleasant 87-year-old male with past medical history of hypertension , hypothyroidism, BPH, colon cancer status post colectomy July 2018 and hyperlipidemia presenting to emergency department at the request of family member (grandmassiel Portillo) due to concerns that patient has been unable to care for himself at his residence where he lives alone. Patient lives in a small home with 3-4 steps to enter the house and as per grandson as well as patient he has been experiencing difficulty caring for himself progressively over the last few months PRIOR to presentation. Grandson expressed concerns that his grandfather has not been taking care of himself and not eating, drinking, or taking his prescribed medications from his primary care physician Dr. Harrington ( medicare in [place]). Patient was found at home very forgetful and was taken to the emergency department for help. No recent falls reported at home and patient walks around house holding onto the moe and other items. Has a walker but doesnt use it. On review of systems patient denied fever, chills, foul-smelling urine, dysuria , back pain, new visual changes, new hearing changes, headache, palpitations, nausea, vomiting, diarrhea, abdominal pain, or other issues. Patient endorse generalized weakness. As per grandson his grandfather has been a progressive decline since surgery for recently diagnosed colon cancer treated with colectomy and no chemotherapy. DS: Diagnosis - Discharge Diagnosis (1) Weakness Status: Acute (2) Failure to thrive Status: Acute (3) Hypertension Status: Acute (4) Complicated urinary tract infection Status: Acute DS: Medications - Discharge Medications Prescriptions: ciprofloxacin HCl 250 mg PO Q12HR 3 Days tab DS: Summary Hospital Course: This is an 87-year-old male patient with failure to thrive. Continue PT efforts. Urinary tract infection, E. coli. Started on Ciprofloxacin. Garcia catheter changed and in place. Has a history of hypertension and hyperlipidemia. Continue simvastatin 10 mg every other day. BP controlled. Hypothyroidism stable on levothyroxine. Colon cancer status post colectomy. Outpatient follow-up. Stable. Full code. Patient to DC to SNF vs home per authorization. CM assisting. - Time Spent with Patient Total time spent providing and/or coordinating discharge services: Greater than 30 minutes - Quality: VTE Deep Vein Thrombosis/Pulmonary Embolism Present on Admission: No Exam Vital signs: Vital Signs 08/08/18 16:00 08/08/18 20:00 08/09/18 00:00 Temperature 98.2 F 98.2 F 97.2 F L Pulse Rate 79 76 72 Respiratory Rate 16 20 20 Blood Pressure 138/61 119/59 L 125/58 L Pulse Oximetry 93 L 94 L 95 08/09/18 08:00 08/09/18 11:51 Temperature 97.5 F L 98.0 F Pulse Rate 88 93 H Respiratory Rate 18 18 Blood Pressure 143/63 H 127/58 L Pulse Oximetry 98 98 Intake & Output 08/08/18 08/09/18 08/09/18 18:59 06:59 18:59 Intake Total 840 / 840 120 / 120 Output Total 650 / 650 600 / 600 Balance 190 / 190 -480 / -480 Weight 59 kg Intake: Oral 840 / 840 120 / 120 Output: Urine 650 / 650 600 / 600 Other: Date of Last Bowel Movement 08/08/18 08/08/18 08/09/18 # Bowel Movements 1 Narrative: GENERAL: Well-developed, elderly frail male patient in [facility]. SKIN: Warm and dry. No rash. HEAD: Normocephalic. Atraumatic. EYES: Pupils equal and round. No scleral icterus. No injection or drainage. ENT: No nasal bleeding or discharge. Mucous membranes pink and moist. NECK: Supple. Trachea midline. CARDIOVASCULAR: Regular rate and rhythm. S1, S2 noted. RESPIRATORY: No accessory muscle use. Clear to auscultation. Breath sounds equal bilaterally. GASTROINTESTINAL: Abdomen soft, non-tender, nondistended. Normoactive bowel sounds x4. Midline abdominal post surgical incision clean and intact, healing. : Garcia cath in place, yellow urine with sediment. MUSCULOSKELETAL: No obvious deformities. Extremities without clubbing, cyanosis , or edema. NEUROLOGICAL: Awake and alert. No obvious cranial nerve deficits. Motor grossly within normal limits. 5/5 muscle strength in bilateral upper and lower extremities. Normal speech. PSYCHIATRIC: Appropriate mood and affect; insight and judgment normal. Results Procedures completed during hospitalization: See above. Discharge Plan - Discharge Disposition Patient Disposition: Discharge to SNF - Discharge Condition Condition: Stable - Discharge Order Discharge Orders: Discharge Order (Routine); Ordered 08/07/18 Ordered By: Vita De La Cruz - Discharge Details Anticipated Discharge Date: 08/07/18 - Physicians Team Primary Care Provider: Baljit Sheppard Attending Provider: Marcus Green Other Providers: Екатерина Willams ; [facility],Agency
--- NOTE | 2018-08-09 14:32 | P.DCO ---
- Diagnosis (1) Weakness Status: Acute (2) Failure to thrive Status: Acute - Physical Therapy Order: Evaluate and treat, Improve ambulation, Strength and gait training - Home Health Nursing Order: Medical education, Signs/symptoms of disease process, Medication education-adverse effect - Case Management Consult Case Management Consult-Home Health: Yes - Certification I have seen patient Reji Van on 08/09/18. My clinical findings support the need for the requested home health care services because: Deconditioned with increased weakness I certify that my clinical findings support that this patient is homebound because: Unsteady gait/balance, Unsafe to leave home unassisted
[2018-08-10] MEDS: Enoxaparin Inj 40 MG/0.4 ML Syringe SQ SCH (08:34)
[2018-08-10] MEDS: Lisinopril 20 MG Tablet PO SCH (08:34)
[2018-08-10] MEDS: Ferrous Sulfate 325 MG Tablet PO SCH (08:34)
[2018-08-10] MEDS: Senna/Docusate Sodium 8.6/50 MG Tablet PO SCH (08:43)
[2018-08-10 09:14] VITALS: RESP 17
--- NOTE | 2018-08-10 15:10 | P.PNIM ---
Subjective Interval history: 87-year-old male who was seen and examined today for follow-up on failure to thrive, urinary tract infection, weakness. Patient is doing much better. Patient was actually discharged yesterday awaiting insurance authorization for rehab facility. Patient denies any new complaints. Vital signs are stable. Patient remains afebrile. Physical Exam Vital signs: Vital Signs 08/09/18 15:42 08/09/18 20:00 08/10/18 00:00 Temperature 99.3 F 96.2 F L 98.3 F Pulse Rate 76 80 70 Respiratory Rate 18 18 16 Blood Pressure 127/59 L 107/53 L 126/67 Pulse Oximetry 96 96 96 08/10/18 08:00 08/10/18 12:00 Temperature 97.0 F L 97.6 F Pulse Rate 74 86 Respiratory Rate 17 17 Blood Pressure 129/62 128/62 Pulse Oximetry 97 95 Intake & Output 08/09/18 08/10/18 08/10/18 18:59 06:59 18:59 Output Total 450 / 450 400 / 400 Balance -450 / -450 -400 / -400 Weight 56.1 kg Output: Urine 450 / 450 400 / 400 Other: Date of Last Bowel Movement 08/09/18 08/09/18 08/09/18 # Bowel Movements 0 Narrative: GENERAL: Well-developed, frail and cachectic, in no acute distress. alert and orientated HEENT: Head is normocephalic without any lesions or masses noted. Facial features are symmetric. Eyes: Extraocular muscles are intact. Conjunctivae were clear. NECK: Supple without any masses. Trachea midline no deviation. No JVD, CARDIAC: Regular rhythm, regular rate. S1/S2 are heard. 2/6 ejection murmur, no gallops or rubs. LUNGS: Clear to auscultation bilaterally. No wheeze, rhonchi or rales. No use of accessory muscles on inspiration or expiration. ABDOMEN: Soft, nontender. Nondistended. Bowel sounds heard in all 4 quadrants. No organomegaly or masses. Negative rebound, negative guarding EXTREMITIES: No edema, pulses are equal bilaterally. No cyanosis or clubbing NEUROLOGY: Mood and affect appear appropriate. Cranial nerves II through XII grossly intact. Moving all extremities, speech is clear - Urinary Catheter Management Indwelling Urethral Catheter Cath placed during this visit: yes, but has since been removed by the nurse Reason for continuing: Acute urinary retention Insertion date: 08/07/18 Insertion time: 22:25 Removal date: 08/06/18 Removal time: 22:15 Results - Procedures See above. Assessment and Plan - Assessment (1) Weakness Code(s): R53.1 - Weakness Status: Acute (2) Failure to thrive Status: Acute (3) Hypertension Code(s): I10 - Essential (primary) hypertension Status: Acute (4) Complicated urinary tract infection Code(s): N39.0 - Urinary tract infection, site not specified Status: Acute - Plan Failure to thrive Physical therapy consulted who recommends rehab facility -Case management consulted for rehab placement, awaiting insurance authorization for placement Urinary tract infection, E. coli -Urine culture positive for E. coli -Continue ciprofloxacin. Garcia catheter changed. Hypertension Hyperlipidemia Continue simvastatin 10 mg every other day Continue blood pressure medications as prescribed. Hypothyroidism -Continue levothyroxine 25 mcg taken in morning prior to other medications to prevent abnormal absorption. Colon cancer status post colectomy Outpatient follow-up. Stable. DVT prophylaxis: -Subcutaneous Lovenox Discharge Planning: Discharge to skilled nurse facility once arrangements made by case management.
[2018-08-10 15:46] VITALS: BP 126/65; PULSE 82; TEMP 97.2; O2SAT 97
== END 2018-08-10 16:06 ==
LOC: PHED 12:04 → INTOOBSV 16:11 → PHEDA 16:11 → PH3 17:55
PROVIDERS: ADMIT Hospitalist; ATTEND Hospitalist